=== PATIENT | male | born 1955 | race Caucasian/White ===

== ENCOUNTER → 2021-04-24 15:56 | Outpatient (BNVA) | payer MEDICARE, SELFPAY | PROVIDERS: Visit Provider Specialist | DX: Z01.812 Encounter for preprocedural laboratory examination (principal); Z20.822 Contact with and (suspected) exposure to COVID-19 | CPT/HCPCS: 87635 ==

== ENCOUNTER 2021-04-28 13:25 | Inpatient (IN) | payer MEDICARE, SELFPAY ==
[2021-04-27 14:02] VITALS: BMI 23.9
[2021-04-28] VITALS (40 sets, daily range): BP systolic 158–183; BP diastolic 74–91; PULSE 63–108; RESP 10–24; TEMP 36.2–36.9; O2SAT 91–100
[2021-04-28] MEDS: sodium chloride 0.9% 1,000 ML 30 ML IV (07:46)
--- NOTE | 2021-04-28 07:54 | ANES.PREANE2 ---
Pre-Anesthetic Assessment Pre-Anesthetic Assessment: Height/Weight: Height 1.6 m Weight 61.235 kg Temp Pulse Resp BP Pulse Ox 98.1 F 81 18 181/87 98 04/28/21 07:32 04/28/21 07:32 04/28/21 07:32 04/28/21 07:32 04/28/21 07:32 Preop Diagnosis: Neck mass Proposed Procedure: Operation Date: 04/28/21 08:45 Proposed Procedures p Tracheotomy direct micro [id number] D38.0(Not Applicable) - Carlos A Almazan MD s Direct Laryngoscopy(Not Applicable) - Carlos A Almazan MD s Esophagoscopy w/ biopsy or biopsies(Not Applicable) - Carlos A Almazan MD Familial anesthetic complications: None Was Beta Fawn taken within 24 hours: N/A Was Clonidine taken within 24 hours: N/A Last intake: Intake Last Liquid Date 04/27/21 Last Liquid Time 18:00 Last Solid Date 04/27/21 Last Solid Time 15:00 Social: Social History: Tobacco and No alcohol Exam: Pre-Anes Outpt Exam: alert, oriented x 3, clear to auscultation bilaterally and regular rate & rhythm Airway: Cervical ROM: WNL MP: 3 Dentition: Other (poor dentition, mutiple missing) Anesthetic Plan: ASA status: 3 Anesthesia: General Risk of > 500 ml blood loss (7ml/kg in children): No Meds/Allergies Current Medications: Current Medications Generic Name Dose Route Start Last Admin Trade Name Freq PRN Reason Stop Dose Admin Sodium Chloride 1,000 mls @ 30 ml s/hr 04/28/21 07:30 04/28/21 07:46 Sodium Chloride 0.9% IV 04/29/21 07:29 30 mls/hr .Q24H MANDIE Administration PFSH Anesthesia PFSH: Social History (Updated 04/27/21 @ 13:55 by Dolores Monique) Smoking and tobacco status: current every day smoker cigarettes Packs smoked per day: 0.5 Data Anesthesia Cardiac Studies: No Data to Display
--- NOTE | 2021-04-28 08:33 | W.PM.OPSUD ---
Surgery/Procedure H&P Update DATE OF PROCEDURE: April 28, 2021 DATE H&P PERFORMED: 04/24/21 H&P UPDATE INFORMATION: I have reviewed H&P completed within last 30 days, I have examined patient prior to procedure and No changes to prior documentation PREOP DIAGNOSIS: Laryngeal mass with threatened airway PRIMARY INDICATION FOR PROCEDURE: Laryngeal mass diagnosis Threatened airway PLANNED PROCEDURE: Operation Date: 04/28/21 08:45 Proposed Procedures p Tracheotomy direct micro [id number] D38.0(Not Applicable) - Carlos A Almazan MD s Direct Laryngoscopy(Not Applicable) - Carlos A Almazan MD s Esophagoscopy w/ biopsy or biopsies(Not Applicable) - Carlos A Almazan MD
[2021-04-28] MEDS: lidocaine 2% INJ 20 mL INJECTION (08:55)
[2021-04-28] MEDS: thrombin 5,000 unit SDV 5000 UNIT XX (09:18)
[2021-04-28] MEDS: fluorescein 1 mg Strip XX (09:35)
[2021-04-28] MEDS: EPINEPHrine 1 mg/mL INJ XX (09:35)
--- NOTE | 2021-04-28 10:09 | P.OP_ITS ---
Operative Report Date of procedure: April 28, 2021 Pre-op Diagnosis: Laryngeal mass with threatened airway Post-op diagnosis: same Post-op Findings: Significant obstruction of the airway at the larynx was noted Exophytic mass extending from the laryngeal surface of the mid epiglottis to the left false and true vocal cords The vallecula and tongue base were normal The pyriform sinuses were normal bilaterally There was esophagitis at the G-E junction, but the esophagus was o/w normal to the cardia of the stomach Procedure Done: Tracheotomy Microdirect laryngoscopy with biopsy Flexible esophagoscopy with biopsy of the G-E junction Implants: None Pathology: Laryngeal mass G-E junction biopsy Surgeon: Carlos A Almazan Organisational Psychologist: Anjel Lemus Anesthesia: MAC and General Estimated blood loss (mL): 5 IV fluids (mL): 1,200 Complications: None Findings: Normal anterior/tracheal exam Exophytic mass of the epiglottis laryngeal surface with extension to the left false and true vocal cords Partial airway obstruction Esophagitis at the G-E junction Condition: stable Disposition: PACU Brief History: The patient is a 66-year-old white male with a laryngeal mass and partial airway obstruction who presents today for surgical evaluation and tracheotomy. Procedure: The patient was identified in the preoperative holding area and was t aken to the operating room where he was placed on the operating table in the supine position. A vertical incision was marked out over the cervical trachea just above the sternal notch and this area was infiltrated with local anesthesia. 3 cc of 2% plain lidocaine was then injected into the trachea transcutaneously The patient prepped and draped in the usual sterile fashion. The tracheotomy incision was made with electrocautery on cut mode and the dissection proceeded down through the subcutaneous tissues with a combination of electrocautery and Metzenbaum scissors. The soft tissues were then retracted laterally. The trachea and cricoid cartilage were identified to palpation and the dissection proceeded down to the trachea itself. The thyroid isthmus was elevated off of the trachea and was then divided with the harmonic scalpel. The second tracheal ring was then identified and was removed anteriorly thus entering the airway. At this point a #8 tracheotomy tube was placed in the trachea and the trach was then secured in place with interrupted 0 Prolene sutures. Thrombin-soaked Gelfoam was then placed in the wound and a neck strap was placed on the patient as well. At this point the table was turned 90? to the patient's left. A moist Ray-Palomo was placed in the patient's maxillary gingiva and the surgical laryngoscope was advanced down the right oral cavity gutter under direct vision until the larynx came to view. An inspection was then made of the patient's larynx with findings noted above. Biopsies were taken with cup forceps and hemostasis was achieved with direct application of 11/999 topical epinephrine. Once the inspection of the larynx was complete, the flexible esophagoscope was passed into the esophageal inlet and the laryngoscope was removed. An inspection was then carried out of the esophagus to the cardia of the stomach with the flexible esophagoscope. Biopsies were taken at the GE junction and the flexible esophagoscope was then atraumatically removed from the patient. At this point the procedure was terminated and control of the patient was returned to anesthesia where he underwent an uneventful reversal of anesthesia and extubation and was taken to the recovery room in stable condition. There were no operative or anesthetic complications.
--- NOTE | 2021-04-28 10:43 | SUR.PHASEI ---
1040- SUCTION TO TRACHEOSTOMY PERFORMED PER STERILE TECHNIQUE WITH 12 FR SUCTION CATHETER. THICK CLEAR, BLOOD-TINGED SPUTUM IS EXTRACTED. PATIENT TOLERATES WELL WITH 02 SAT REMAINING WITHIN NORMAL LIMITS WITH ROOM AIR.
--- NOTE | 2021-04-28 11:47 | SUR.PHASEI ---
Patient on mist from RT, having trouble clearing secretions, suction was used to remove phleem
[2021-04-28] MEDS: morphine 4 mg/mL SDV 1 mL 2 MG IVP (14:35)
[2021-04-28] MEDS: famotidine 20 mg/2 mL INJ IVP (14:36)
[2021-04-28] MEDS: lactated ringers 1,000 ML 125 ML IV ×2 (14:36→21:52)
--- NOTE | 2021-04-28 15:54 | ANE.PACU2 ---
Inpatient post-anesthesia follow up: Airway intact: No Vital signs: Temperature 98.1 F Pulse Rate 77 Respiratory Rate 24 Blood Pressure 176/84 Pulse Oximetry 97 Oxygen Delivery Me thod [ HAG Current Rate & Del ivonne] Oxygen Delivery Me thod Trach Collar Oxygen Flow Rate [ Current Rate 10 & Delivery] Oxygen Flow Rate 6 Fraction of Inspir ed Oxygen Hydration adequate: Yes Nausea and vomiting: No Pain level: 2 Mental status: Baseline
--- NOTE | 2021-04-28 18:00 | PM.PN ---
Subjective Subjective: Interval history: 66 yo wm with a h/o an obstructing laryngeal mass who is night of surgery s/p tracheotomy and microdirect laryngoscopy and esophagoscopy with biopsy. The patient is doing well by report. He c/o some periincisional pain, but is o/w without c/o. Vitals/I&O/Wt Last Vital Signs Temp 98.1 F 04/28/21 14:30 Pulse 77 04/28/21 14:30 Resp 24 H 04/28/21 14:35 BP 176/84 04/28/21 14:30 Pulse Ox 97 04/28/21 14:30 04/28/21 04/28/21 04/28/21 06:59 14:59 22:59 Intake Total 200 / 200 Output Total 5 / 5 300 / 305 Balance 195 / 195 -300 / -105 Weight last 48 hrs Weight 61.235 kg Physical Exam Const: COMMON NORMALS: no acute distress, patient oriented x3 and alert HENMT: COMMON NORMALS: atraumatic, hearing grossly normal bilaterally, external ears normal and Normal external nose present HEAD & SCALP: normal to inspection and atraumatic FACE & SINUS: normal facial exam NOSE: Normal external nose present EXTERNAL EAR: Yes external ears normal MOUTH: Normal oral and palatal mucosa present Eye: COMMON NORMALS: EOMs intact bilaterally, conjunctivae normal and no scleral icterus CONJUNCTIVA: Yes conjunctivae normal Neck/C-Spine: COMMON NORMALS: no lymphadenopathy and supple GENERAL: Yes tracheostomy present Lymph: LYMPHATIC: no lymphadenopathy noted Chest: COMMONS NORMALS: normal inspection of the chest and normal palpation of entire chest wall Resp: COMMON NORMALS: normal respiratory effort, No use of accessory muscles and clear to auscultation bilaterally AUSCULTATION: clear to auscultation bilaterally Cardio: COMMON NORMALS: regular rate, regular rhythm and No murmurs present (Cardio) RATE: regular rate RHYTHM: regular rhythm GI: COMMON NORMALS: Normal to inspection, nondistended, normoactive bowel sounds present and Soft to palpation PALPATION: Yes Soft to palpation Extremity: COMMON NORMALS: normal to inspection Neuro: COMMON NORMALS: patient oriented x3, moves all extremities and no focal motor deficits SENSORIUM/ORIENTATION: Yes alert Psych: COMMON NORMALS: mental status grossly normal and cooperative Skin: COMMON NORMALS: no rashes or lesions noted GENERAL SKIN EXAM: no rashes or lesions noted Data Attestation for Other Data: I personally reviewed and interpreted the following: (Frozen Section Biopsy of the Laryngeal Mass c/w SCCA) A&P Additional A&P Information Impression: - 66 yo wm who is night of surgery s/p Tracheotomy and DL/Esophagoscopy with biopsy who is doing well from this standpoint - Hypertension - Social Plan: - ICU observation with trach care; I will perform the first trach change on POD #5-7 - Will defer to the patient's PCP after d/c - Social Work consult: the patient will need a daily home health visit for 2 weeks, Home Suction, Home airway humidification via trach collar Attestations Medical Necessity Statement*: The patient requires inpatient care until the first trach change Coding Level of Care Code Acute Rubber Goods Assembler for Kolby Baker
[2021-04-29] VITALS (54 sets, daily range): BP systolic 140–188; BP diastolic 62–122; PULSE 64–112; RESP 10–22; TEMP 36.8–39.2; O2SAT 88–98
[2021-04-29] MEDS: famotidine 20 mg/2 mL INJ IVP ×2 (02:18→14:03)
--- NOTE | 2021-04-29 02:29 | NUR.SHIFT ---
Changed trach sponge, ambulated patient around the unit. Patient very pleasant and cooperative with cares. Continue care.
--- NOTE | 2021-04-29 05:14 | P.PN_ITS ---
Subjective Subjective: Interval history: 66 yo wm who is POD #1 s/p tracheotomy and Direct Laryngoscopy/Esophagoscopy with biopsy. The patient reports minimal pain, and has been able to eat 'some.' The patient is o/w without c/o. Vitals/I&O/Wt Last Vital Signs Temp 98.0 F 04/28/21 23:18 Pulse 71 04/28/21 22:00 Resp 24 H 04/28/21 14:35 BP 176/84 04/28/21 14:30 Pulse Ox 97 04/28/21 14:30 04/28/21 04/28/21 04/29/21 14:59 22:59 06:59 Intake Total 200 / 200 908.333 / 1108.333 Output Total 5 / 5 850 / 855 Balance 195 / 195 58.333 / 253.333 Weight last 48 hrs Weight 61.235 kg Physical Exam Const: COMMON NORMALS: no acute distress, average body habitus and patient oriented x3 HENMT: COMMON NORMALS: normocephalic, atraumatic, external ears normal and Normal external nose present HEAD & SCALP: normocephalic and atraumatic FACE & SINUS: normal facial exam NOSE: Normal external nose present EXTERNAL EAR: Yes external ears normal MOUTH: Normal oral and palatal mucosa present Eye: COMMON NORMALS: Equal, round and reactive pupils present and conjunctivae normal EYELID: eyelids normal CONJUNCTIVA: Yes conjunctivae normal PUPIL: Yes Equal, round and reactive pupils present Neck/C-Spine: COMMON NORMALS: no lymphadenopathy GENERAL: Yes tracheostomy present (The trach is clean and dry without erythema or induration.) and Yes other Resp: COMMON NORMALS: normal respiratory effort, No retractions, No use of accessory muscles and clear to auscultation bilaterally AUSCULTATION: clear to auscultation bilaterally Cardio: COMMON NORMALS: regular rate, regular rhythm and No murmurs present (Cardio) RATE: regular rate RHYTHM: regular rhythm GI: COMMON NORMALS: Normal to inspection, nondistended, normoactive bowel sounds present and Soft to palpation AUSCULTATION: Yes normoactive bowel sounds PALPATION: Yes Soft to palpation Extremity: COMMON NORMALS: normal to inspection Neuro: COMMON NORMALS: patient oriented x3 A&P Additional A&P Information Impression: - 66 yo wm who is POD #1 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 Coding Level of Care Code Acute Research Worker Kitchen for Kolby Baker
[2021-04-29] MEDS: lactated ringers 1,000 ML 125 ML IV ×2 (05:16→13:08)
[2021-04-29] MEDS: morphine 4 mg/mL SDV 1 mL 2 MG IVP ×2 (07:10→10:37)
--- NOTE | 2021-04-29 10:04 | PC.CHAP ---
Pastoral Care Encounter/Spiritual Assessment Type of Contact [] Declined lime kiln worker visit [] Patient/Family/Request visit [] Outpatient visit [] Follow-up visit [] Physician referral [] Code/Alert [x] Routine visit [] Staff referral [] Actively dying [] Patient sleeping [] Family support [] [] Out of room [] Palliative care [] [] Receiving care in room [] Pre-surgical visit [] Trauma [] Long length of stay [x] ICU visit [] Other: Relational/Emotional Strength [] Patient feels connected with others/family/visitors/staff [] Distress [] Loneliness/isolation [] Abandonment Spirituality of Patient [] Person of Amrisa [] Attends Orthodox of their Marisa [] Believes in Prayer [] Reads Bible or Episcopalian materials [] There are Spiritual issues to be addressed Clinical Staff Anesthesiologist Interventions [x] Prayer [] Active listening [] Non-anxious presence [] Spiritual/emotional support [] Crisis/trauma care [] Spiritual counseling [] Bereavement support [] Provided bereavement packet [] Provided Bible/devotional materials [] Provided toy/stuffed animal, coloring book to patient or family member [] Provided Communion [] Anointing/[place] [] Salvation [x] Completed spiritual assessment [] Other: Impact on Illness or Injury [] Angry [] Fearful [] Anxious [] Often cries [] Exhaustion [] Unable to work [] Unable to attend taoism [] Unable to walk/stand [] Unable to read [] Unable to drive [] Unable to eat/drink [] Unable to sleep [] Unable to be with family [] Patient intubated [] Other: Summary Time spent with patient
--- NOTE | 2021-04-29 17:31 | XRR_ITS ---
PROCEDURE INFORMATION: Exam: XR Chest Exam date and time: 04/29/2021 5:31 PM Age: 66 years old Clinical indication: Fever; Additional info: Decreased stats TECHNIQUE: Imaging protocol: XR of the chest. Views: 1 view. Total images: 1 COMPARISON: ES surgery / GI images 04/28/2021 6:22 AM FINDINGS: Tubes, catheters and devices: Tracheostomy tube appears in satisfactory position. Lungs: No visible active interstitial or alveolar airspace disease. Mild senile fibrosis. COPD/chronic bronchitis. Pleural spaces: No pleural effusion. No pneumothorax. Heart/Mediastinum: Mild cardiomegaly with arteriosclerosis. Bones/joints: Unremarkable for age. XR/XR chest 1V portable [id number] IMPRESSION: Nonacute.
--- NOTE | 2021-04-29 22:06 | XRR_ITS ---
PROCEDURE INFORMATION: Exam: XR Chest Exam date and time: 04/29/2021 10:06 PM Age: 66 years old Clinical indication: Fever TECHNIQUE: Imaging protocol: XR of the chest. Views: 1 view. Total images: 1 COMPARISON: 1. CR XR chest 1V portable [id number] 04/29/2021 6:00 PM 2. ES surgery / GI images 04/28/2021 6:22 AM FINDINGS: Tubes, catheters and devices: Tracheostomy tube appears in stable position. Lungs: No visible active interstitial or alveolar airspace disease. Mild senile fibrosis. COPD/chronic bronchitis. Pleural spaces: No pleural effusion. No pneumothorax. Heart/Mediastinum: Mild cardiomegaly with arteriosclerosis. Bones/joints: Unremarkable for age. XR/XR chest 1V portable [id number] IMPRESSION: Nonacute.
[2021-04-29] MEDS: acetaminophen 325 mg Tablet PO (22:18)
[2021-04-29 22:42] LABS: Basophils % 0.2 %; Hematocrit 33.8 % (42.0-52.0); Hemoglobin 11.1 g/dL (11.7-16.6); Lymphocytes # 1.5 10^3/uL (0.8-4.8); Lymphocytes % 9.2 %; Mean Corpuscular HGB Conc 32.8 g/dL (30.0-36.0); Mean Corpuscular Hemoglobin 27.3 pg (28.0-34.0); Mean Platelet Volume 10.3 fL (7.4-10.4); Monocytes # 1.3 10^3/uL (0.2-0.9); Monocytes % 8.2 %; Neutrophils # 13.19 10^3/uL (1.8-7.7); Nucleated Red Blood Cells % 0 %; Platelet Count 366 10^3/cmm (130-400); Red Blood Count 4.07 10^6/uL (4.1-5.3); Red Cell Distribution Width 13.4 % (12.1-15.1); White Blood Count 16.1 10^3/uL (4.0-10.0)
[2021-04-29 22:52] LABS: Lactate (Lactic Acid level) 0.8 mmol/L (0.5-2.2)
--- NOTE | 2021-04-29 23:15 | PC.NURSE ---
102.5 axillary fever noted during physical assessment and vs check. MD transaction processor notified. New orders placed for tylenol, cxr, urinalysis, and blood cultures. This RN notified Almazan of patient condition. No other new orders given at this time.
[2021-04-29 23:41] LABS: Glomerular Filtration Rate 166.4 mL/min (90-130)
[2021-04-30] VITALS (33 sets, daily range): BP systolic 111–174; BP diastolic 47–83; PULSE 70–128; RESP 13–22; TEMP 36.8–37.9; O2SAT 87–97
[2021-04-30 00:02] LABS: Add Urine Microscopic? YES; Bacteria Urine TRACE /hpf; Bilirubin Urine Neg (Negative); Blood Urine Trace (Negative); Glucose Urine UA Norm (Normal); Ketones Urine 1+ (Negative); Leukocyte Esterase Urine Negative (Negative); Nitrate Urine Negative (Negative); Protein Urine Neg (Negative); RBC Urine 0-4 /hpf (0-2); Squamous Epithelial Cell Urine 0-4 /hpf (0-5); Urine Appearance Clear (CLEAR); Urine Color Yellow (Yellow); Urobilinogen Urine Norm (Negative); WBC Urine 0-4 /hpf (0-5); pH Urine 8 (5-7)
[2021-04-30] MEDS: piperacillin-tazobactam 3.375 GM in sodium chloride 0.9% (plus) 50 ML IV ×3 (01:22→17:00)
[2021-04-30] MEDS: famotidine 20 mg/2 mL INJ IVP ×2 (03:25→14:19)
--- NOTE | 2021-04-30 04:02 | PM.CONSULT ---
Providers/Reason For Consult Consulting Physician/Specialty*: Hospitalist service/Dr. Cornejo Reason for Consult*: Sepsis Attending Physician: Carlos A Almazan MD History of Present Illness History of Present Illness Cristobal Delatorre is a 66 year old male with history of laryngeal mass( squamous cell cancer supraglottic larynx )status post tracheotomy with MicroDirect laryngoscopy esophagoscopy with biopsy postop day 1, hospitalist service consulted for management of fever. ICU nurse notified me about axillary temperature 102F last night. I requested stat CBC, lactic acid, procalcitonin, chest x-ray, blood cultures and urine culture. Patient is going to stay in ICU for 5 to 7 days there is plan of changing trach on post operative day 5. He has a lot of thick purulent secretions around tracheostomy tube. He is not complaining of any abdominal pain, dysuria. Review of Systems Const: Reports: fever(s) and chills Eyes: Denies: change in vision ENMT: Reports: throat pain, oral sores and dry mouth Card: Denies: chest pain Resp: Denies: dyspnea GI: Denies: abdominal pain : Denies: flank pain Musc: Denies: neck pain Skin/Breast: Denies: rash Neuro: Denies: headache(s) Psych: Denies: anxiety Endo: Denies: polyuria Jesus/Lymph: Denies: easy bruising All/Imm: Denies: urticaria Meds/Allergies Home Medications and Allergies Home Medications Medication Instructions Recorded Confirmed Last Taken Type acetaminophen 500 mg PO Q6H PRN 04/27/21 04/28/21 04/28/21 History fluticasone propionate [Flonase 1 spray INTRANASAL DAILY 04/27/21 04/28/21 04/27/21 History Allergy Relief] tramadol 50 mg PO Q6H PRN 04/27/21 04/27/21 Unknown History Allergies Allergy/AdvReac Type Severity Reaction Status Date / Time No Known Allergies Allergy Verified 04/27/21 14:00 Current Medications Current Medications Generic Name Dose Route Start Last Admin Trade Name Freq PRN Reason Stop Dose Admin Acetaminophen 325 - 650 mg 04/29/21 22:04 04/29/21 22:18 Acetaminophen 325 Mg Tablet PO 650 mg Q4H PRN Administration MILD PAIN OR INCREASE TEMP Docusate Sodium 100 mg 04/28/21 18:00 04/29/21 18:09 Docusate Sodium 100 Mg Capsule PO Not Given BID MANDIE Famotidine 20 mg 04/28/21 15:00 04/30/21 03:25 Famotidine 20 Mg/2 Ml Inj IVP 20 mg Q12H MANDIE Administration Lactated Ringer's 1,000 mls @ 30 mls/hr 04/28/21 13:50 04/29/21 19:00 Lactated Ringers IV 30 mls/hr .Q24H MANDIE Infusion Piperacillin Sod/Tazobactam 50 mls @ 12.5 mls/hr 04/30/21 01:15 04/30/21 01:22 Sod 3.375 gm/ Sodium Chloride IV 12.5 mls/hr Q8H MANDIE Administration Protocol As Directed Morphine Sulfate 2 mg 04/28/21 13:57 04/29/21 10:37 Morphine 4 Mg/Ml Sdv 1 Ml IVP 2 mg Q1H PRN Administration SEVERE PAIN PFSH Acute PFSH: Medical History Laryngitis Stomach ulcer Surgical History H/O removal of cyst Family History Other Family history non-contributory Social History Smoking and tobacco status: current every day smoker cigarettes Packs smoked per day: 0.5 Vitals/I&O/Wt Last Vital Signs Temp 100.3 F H 04/30/21 00:00 Pulse 75 04/30/21 01:00 Resp 21 H 04/30/21 01:00 BP 161/98 04/29/21 23:00 Pulse Ox 92 04/30/21 01:00 04/29/21 04/29/21 04/30/21 14:59 22:59 06:59 Intake Total 1363.333 / 1363.333 783.333 / 2146.666 Output Total 1250 / 1250 1300 / 2550 Balance 113.333 / 113.333 -516.667 / -403.334 Physical Exam Narrative: EXAM NARRATIVE: Middle-age male who appears cachectic and malnourished Status post tracheostomy, tracheostomy tube size 8 with cough with a lot of purulent thick secretions around it No abdominal pain, no signs of peritonitis, soft abdomen S1, S2 sinus rhythm no murmur appreciated no signs of heart failure Lower extremity no edema gangrene ulcer EOMI, PERRLA GCS 15 no neurological deficit No skin rash noted At the bedside normal saline running at 30 cc/h Patient able to communicate using his hand gestures and nonverbal signs Data Micro: Micro: Microbiology 04/29/21 22:22 Blood Culture - Pr eliminary Blood SPECIMEN [facility] 04/29/21 22:15 Blood Culture - Pr eliminary Blood SPECIMEN [facility] A&P Assessment and plan (1) Sepsis: Status: Acute (2) S/P emergency tracheotomy for assistance in breathing: Status: Acute Additional A&P Information Sepsis Status post tracheostomy for supraglottic squamous cell laryngeal mass Criteria met with fever, tachypnea, tachycardia, leukocytosis, Procalcitonin unremarkable Normal lactic acid Requested blood culture, tracheal secretion culture sent, MRSA PCR, urinalysis and chest x-ray We will continue on vancomycin and Zosyn for now He is on normal saline 30 cc/h Postop day 1, tracheostomy tube size 8, currently saturating well on 10 L oxygen supplementation Rule out tracheitis Hypertension: I would initiate lisinopril 10 mg daily, I do believe normal saline running at 30 cc/h also is contributing to hypertension, considering active sepsis would continue fluids for now which would help diluting his tracheal secretions as well, Lisinopril and amlodipine initiated Full code Clear liquid diet DVT prophylaxis: Start Lovenox Consult Attestations Medical Necessity Statement: As per ENT Time Spent in Patient Care: 30mins Coding Level of Care Code Acute Multimedia Services Manager for Chg Fwd Diagnoses Sepsis A41.9 S/P emergency tracheotomy for assistance in breathing Z93.0
--- NOTE | 2021-04-30 04:04 | PM.PN ---
Subjective Subjective: Interval history: 66 yo wm who is POD #2 s/p tracheotomy with DL and esophagoscopy with biopsy for an obstructing laryngeal mass. The patient developed a fever to 103 last night, but is o/w without c/o. He was taking po well yesterday. Vitals/I&O/Wt Last Vital Signs Temp 100.3 F H 04/30/21 00:00 Pulse 75 04/30/21 01:00 Resp 21 H 04/30/21 01:00 BP 161/98 04/29/21 23:00 Pulse Ox 92 04/30/21 01:00 04/29/21 04/29/21 04/30/21 14:59 22:59 06:59 Intake Total 1363.333 / 1363.333 783.333 / 2146.666 Output Total 1250 / 1250 1300 / 2550 Balance 113.333 / 113.333 -516.667 / -403.334 Physical Exam Const: COMMON NORMALS: no acute distress and patient oriented x3 HENMT: COMMON NORMALS: normocephalic, atraumatic, hearing grossly normal bilaterally and Normal external nose present HEAD & SCALP: normocephalic and atraumatic NOSE: Normal external nose present TEETH & GINGIVA: Yes abnormal tooth and associated gingiva Eye: GENERAL EYE: appearance normal, both eyes and all related structures Neck/C-Spine: COMMON NORMALS: no lymphadenopathy and supple GENERAL: Yes tracheostomy present (No erythema or induration.) Lymph: LYMPHATIC: no lymphadenopathy noted Chest: COMMONS NORMALS: normal inspection of the chest and normal palpation of entire chest wall Resp: COMMON NORMALS: normal respiratory effort and clear to auscultation bilaterally AUSCULTATION: clear to auscultation bilaterally Cardio: COMMON NORMALS: regular rate, regular rhythm and No murmurs present (Cardio) RATE: regular rate RHYTHM: regular rhythm GI: COMMON NORMALS: Normal to inspection, nondistended, normoactive bowel sounds present, Soft to palpation and non-tender PALPATION: Yes Soft to palpation Extremity: COMMON NORMALS: normal to inspection and full ROM Neuro: COMMON NORMALS: patient oriented x3 and CN's II-XII intact bilaterally Skin: COMMON NORMALS: no rashes or lesions noted GENERAL SKIN EXAM: no rashes or lesions noted Sepsis: Is patient septic: No Data : 04/29/21 22:22 06/23/21 22:22 Micro: Microbiology 04/29/21 22:22 Blood Culture - Preliminary Blood SPECIMEN COLLECTED 04/29/21 22:15 Blood Culture - Preliminary Blood SPECIMEN COLLECTED A&P Additional A&P Information Impression: 1) 66 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 Attestations Medical Necessity Statement*: The patient requires inpatient care until first trach change on POD 5-7 Coding Level of Care Code Acute Cyber Forensic Specialist for Kolby Baker
--- NOTE | 2021-04-30 04:14 | PC.PHAR ---
Vancomycin is dosed at 1250mg IVPB every 12 hours to produce a predicted trough level of 12.83 (population based pharmacokinetic analysis). A trough level has been ordered from the lab to be obtained before the fourth dose to confirm and adjust if needed. The Zosyn is dosed at 3.375gm IVPB every 8 hours on basis of creatinine clearance of 75.328.
[2021-04-30] MEDS: vancomycin 1,250 MG/250 ML PIGGYBACK 250 MG IV ×2 (04:46→15:42)
[2021-04-30] MEDS: lisinopril 10 mg Tablet PO ×2 (04:46→10:28)
[2021-04-30 05:07] LABS: Basophils # 0.1 10^3/uL (0.0-0.1); Basophils % 0.3 %; Hematocrit 35.3 % (42.0-52.0); Hemoglobin 11.4 g/dL (11.7-16.6); Lymphocytes # 1.6 10^3/uL (0.8-4.8); Mean Corpuscular HGB Conc 32.3 g/dL (30.0-36.0); Mean Corpuscular Hemoglobin 27.1 pg (28.0-34.0); Mean Corpuscular Volume 83.8 fL (80-94); Mean Platelet Volume 10.7 fL (7.4-10.4); Monocytes # 1.3 10^3/uL (0.2-0.9); Monocytes % 8.7 %; Neutrophils # 11.71 10^3/uL (1.8-7.7); Neutrophils % 79.7 %; Nucleated Red Blood Cells % 0 %; Platelet Count 362 10^3/cmm (130-400); Red Blood Count 4.21 10^6/uL (4.1-5.3); Red Cell Distribution Width 13.7 % (12.1-15.1); White Blood Count 14.7 10^3/uL (4.0-10.0)
[2021-04-30 05:40] LABS: Anion Gap 13.5 (5-19); Blood Urea Nitrogen 9 mg/dL (8-23); Calcium 8.5 mg/dL (8.5-10.5); Carbon Dioxide 26 mmol/L (22-29); Chloride 98 mmol/L (98-107); Glomerular Filtration Rate 134.8 mL/min (90-130); Glucose 89 mg/dL (65-115); Osmolality Calculated 276 mOsm/kg (285-295); Potassium 3.5 mmol/L (3.5-5.1); Sodium 134 mmol/L (136-145); Thyroid Stimulating Hormone 0.56 uIU/mL (0.27-4.20)
[2021-04-30] MEDS: amlodipine 10 mg Tablet PO ×2 (05:55→10:28)
[2021-04-30] MEDS: enoxaparin 40 mg/0.4 mL Syringe SUBCUT (05:55)
--- NOTE | 2021-04-30 08:21 | PC.CHAP ---
Pastoral Care Encounter/Spiritual Assessment Type of Contact [] Declined personal clothing laundry aide visit [] Patient/Family/Request visit [] Outpatient visit [] Follow-up visit [] Physician referral [] Code/Alert [x] Routine visit [] Staff referral [] Actively dying [] Patient sleeping [] Family support [] [] Out of room [] Palliative care [] [] Receiving care in room [] Pre-surgical visit [] Trauma [] Long length of stay [x] ICU visit [] Other: Relational/Emotional Strength [] Patient feels connected with others/family/visitors/staff [] Distress [] Loneliness/isolation [] Abandonment Spirituality of Patient [] Person of Marisa [] Attends Uatsdin of their Marisa [] Believes in Prayer [] Reads Bible or Scientology materials [] There are Spiritual issues to be addressed Ground Wirer Interventions [x] Prayer [] Active listening [] Non-anxious presence [] Spiritual/emotional support [] Crisis/trauma care [] Spiritual counseling [] Bereavement support [] Provided bereavement packet [] Provided Bible/devotional materials [] Provided toy/stuffed animal, coloring book to patient or family member [] Provided Communion [] Anointing/[place] [] Salvation [x] Completed spiritual assessment [] Other: Impact on Illness or Injury [] Angry [] Fearful [] Anxious [] Often cries [] Exhaustion [] Unable to work [] Unable to attend spiritism [] Unable to walk/stand [] Unable to read [] Unable to drive [] Unable to eat/drink [] Unable to sleep [] Unable to be with family [] Patient intubated [] Other: Summary Time spent with patient
[2021-04-30] MEDS: acetylcysteine 200 mg/mL SDV 4 mL 100 MG INHALATION ×3 (09:00→20:07)
--- NOTE | 2021-04-30 09:13 | P.PN_ITS ---
Subjective Subjective: Interval history: Reports he is having pain around the tracheostomy site. He is coughing. Copious secretions from tracheostomy. Discussed with him regarding noted abnormalities with vital signs, including fever, tachycardia, noted hypoxia. Discussed with him concern regarding sepsis, so far with unknown source. Chest x-ray without acute abnormality. UA not suggestive of UTI. He does not have any GI symptoms. No other systems that would suggest active infection/sepsis at this time. No noted erythema around the tracheostomy, and this appears to be in expected condition as per ENT evaluation this morning. Discussed with him with tachycardia, hypoxia, cough, underlying malignancy possibility of VTE, which may present with the symptoms, and he does have elevated risk. Discussed with him additional assessment including rapid flu, rapid Covid testing. Discussed additional assessment by CT angiogram (contrast study) and risks for additional evaluation. Discussed continued treatment at this time with antibiotics empirically for sepsis of unclear etiology at this time. Discussed also currently he is on prophylactic anticoagulation, however, in the somewhat less likely situation that he has VTE, full dose anticoagulation would be needed. He asks me when he can go home. Discussed with him that plan had been for him to have trach exchange on POD 5-7. States he just came here to have a tumor removed , not all this . Discussed with him risks of untreated sepsis, possible underlying infection not yet identified, as well as risks of possible undiagnosed and/nontreated VTE including possible PE, including risks of disability and/or . He asks me to ask ENT to speak with him as he would like to discuss removal of the trach. Vitals/I&O/Wt Last Vital Signs Temp 99.7 F H 04/30/21 04:00 Pulse 128 H 04/30/21 06:30 Resp 15 04/30/21 06:30 BP 173/75 04/30/21 06:30 Pulse Ox 93 04/30/21 06:30 04/29/21 04/30/21 04/30/21 22:59 06:59 14:59 Intake Total 783.333 / 2146.666 375 / 2521.666 Output Total 1300 / 2550 250 / 2800 Balance -516.667 / -403.334 125 / -278.334 Physical Exam Const: COMMON NORMALS: no acute distress and patient oriented x3 HENMT: COMMON NORMALS: oropharynx normal Neck/C-Spine: COMMON NORMALS: no JVD OTHER: Tracheostomy in place. Copious secretions. Resp: COMMON NORMALS: normal respiratory effort AUSCULTATION: rhonchi O THER: Coughing, with thick yellowish secretions. Cardio: COMMON NORMALS: no JVD and regular rhythm RHYTHM: regular rhythm GI: COMMON NORMALS: Normal to inspection, nondistended, normoactive bowel sounds present Extremity: COMMON NORMALS: no joint enlargement and no pedal edema Neuro: COMMON NORMALS: patient oriented x3 and moves all extremities Skin: COMMON NORMALS: no rashes or lesions noted GENERAL SKIN EXAM: no rashes or lesions noted Data : 04/30/21 04:12 04/30/21 04:12 Micro: Microbiology 04/30/21 04:45 Gram Stain - Final Sputum - Expectorated Sputum 04/29/21 22:22 Blood Culture - Preliminary Blood SPECIMEN COLLECTED 04/29/21 22:15 Blood Culture - Preliminary Blood SPECIMEN COLLECTED A&P Assessment and plan (1) Sepsis: So far not clear etiology, does have thick secretions from tracheostomy, but this is expected after aspiration tracheostomy, additionally no pneumonia noted on chest x-ray. Noted that his hypoxia has worsened, requiring 10 L Haeg oxygen as opposed to 6 on 04/28. Saturations also with mild downtrend. Will check rapid flu, rapid COVID-19. Otherwise no erythema around the trach, and nothing else appears unexpected as per ENT evaluation. Otherwise he has no GI symptoms. UA not suggestive of UTI. No suggestion of infection elsewhere. Discussed with him due to increased risk of VTE with underlying malignancy, immobilization, possibility of VTE causing similar symptoms with tachycardia, fever, hypoxia, cough. Discussed additional assessment by CT angiogram (ventilation but would not be possible for V/Q as per discussion with NM). Will obtain lower extremity duplex as well. Discussed with him in case of underlying VTE would need anticoagulation. He is reluctant, but agreeable to assessment. Follow-up cultures collected including blood culture, tracheal secretions. MRSA PCR. Continue Lovenox for VTE prophylaxis. Famotidine for GI prophylaxis. For now given sepsis of unclear etiology worsening of hypoxia, continue to treat and monitor in ICU. Status: Acute (2) S/P emergency tracheotomy for assistance in breathing: ENT documentation appreciated regarding plan for trach change on POD 5-7. Status: Acute Additional A&P Information Hypertension: Started on amlodipine 10mg, lisinoptil 10mg Full code Clear liquid diet DVT prophylaxis: Start Lovenox Attestations Medical Necessity Statement*: Continue admission for assessment management of sepsis, postoperative care after tracheostomy placement due to airway obstruction from laryngeal malignancy. Coding Level of Care Code Acute Inspector Scales for Chg Fwd Exam Comprehensive Diagnoses Sepsis A41.9 S/P emergency tracheotomy for assistance in breathing Z93.0
--- NOTE | 2021-04-30 09:13 | CT_ITS ---
WS: [id number] CT CHEST ANGIOGRAPHY WITH REFORMATS HISTORY: tachycardia, hypoxia - assess for possible PE TECHNIQUE: Contiguous axial images are obtained through the chest during arterial injection of intrav enous contrast. Images are reconstructed to evaluate the pulmonary arteries. MIP imaging also reviewe d. All CT scans at [facility] use at least one of these dose optimization techniques: aut omated exposure control; mA and/or kV adjustment per patient size (includes targeted exams where dose is matched to clinical indication); or iterative reconstruction. CONTRAST: Omnipaque 350; 95 mL IV. DLP: 563.71 mGy.cm COMPARISON: None available. Very good opacification of the pulmonary arteries. No central pulmonary embolism. There are no fillin g defects. Mild atherosclerotic plaque and intimal thickening within the aorta. No RIGHT heart strain . There is mild enlargement of the heart and small amount of pericardial fluid or thickening. No medi astinal or hilar adenopathy. Tracheostomy tube in good position has been recently inserted. Moderate pulmonary hyperinflation with central lobular and paraseptal emphysema. No mass or nodule. Mild reticulation medial RIGHT lower lo be and at the lung bases. Bilateral gynecomastia. Visualized liver is negative. No adrenal mass. Mild soft tissue stranding and edema within the mesent emma and in the subcutaneous soft tissues over the abdomen and chest. Increase in thoracic kyphosis. Multiple osteoporotic compression fractures are present in the mid tho racic spine. CT/CT angio chest PE protcl [id number] IMPRESSION: 1. No pulmonary embolism. 2. No mediastinal or hilar adenopathy. 3. Severe emphysema with no pneumonia. 4. Recent insertion of a tracheostomy tube in satisfactory position.
--- NOTE | 2021-04-30 10:05 | USCV_ITS ---
Juan Ramon Cristobal Age: 66 Gender: M : 1955 Exam Date: 04/30/2021 10:21 Ordering Phys: Joe Gibson MD Technologist: [place] [facility] [place] BED STASIS HISTORY: Lower extremity edema. PROCEDURES: The venous duplex Doppler examination of both lower extremities was performed in the standard fashion. The following venous structures were evaluated: common femoral vein, profunda vein, proximal portion of the greater saphenous vein, superficial femoral vein, and the popliteal vein. In addition, the posterior tibial veins were evaluated. FINDINGS: Normal 2-D Doppler and augmentation and compressibility throughout the lower extremity venous structures. Additional imaging through the proximal calf veins also reveals no thrombus. Limited evaluation of the greater saphenous vein is patent with no thrombus. CONCLUSIONS No DVT bilateral lower extremities. Dr. Shruti Elizabeth DO (Electronically Signed) Final Date: 30 April 2021 12:54 S
[2021-04-30 10:12] LABS: SARS Covid-2 Antigen Negative (Negative)
[2021-04-30 10:13] LABS: Influenza A by IFA Negative (Negative); Influenza B by IFA Negative (Negative)
[2021-04-30] MEDS: lactated ringers 1,000 ML 30 ML IV (10:28)
--- NOTE | 2021-04-30 10:28 | PC.NURSE ---
MAR delay related to primary nurse busy with other critical patient and this nurse helping.
--- NOTE | 2021-04-30 12:09 | PC.RESP ---
SMOKING CESSATION INFORMATION SENT TO PATIENT.
[2021-04-30] MEDS: iohexol 350 mg/mL 100 mL Btl IV (13:05)
[2021-05-01] VITALS (22 sets, daily range): BP systolic 110–146; BP diastolic 53–74; PULSE 59–94; RESP 13–18; TEMP 36.8–38.2; O2SAT 90–100
[2021-05-01] MEDS: piperacillin-tazobactam 3.375 GM in sodium chloride 0.9% (plus) 50 ML IV ×3 (01:37→16:14)
[2021-05-01] MEDS: acetylcysteine 200 mg/mL SDV 4 mL 100 MG INHALATION ×3 (02:26→14:11)
[2021-05-01] MEDS: famotidine 20 mg/2 mL INJ IVP ×2 (02:48→14:47)
[2021-05-01] MEDS: acetaminophen 325 mg Tablet PO ×2 (04:16→16:14)
[2021-05-01] MEDS: vancomycin 1,250 MG/250 ML PIGGYBACK 250 MG IV (04:16)
[2021-05-01 05:03] LABS: Basophils # 0.1 10^3/uL (0.0-0.1); Basophils % 0.5 %; Eosinophils % 0.1 %; Hematocrit 35.8 % (42.0-52.0); Hemoglobin 11.4 g/dL (11.7-16.6); Lymphocytes # 1.4 10^3/uL (0.8-4.8); Lymphocytes % 9.5 %; Mean Corpuscular HGB Conc 31.8 g/dL (30.0-36.0); Mean Corpuscular Hemoglobin 26.6 pg (28.0-34.0); Mean Corpuscular Volume 83.6 fL (80-94); Mean Platelet Volume 10.6 fL (7.4-10.4); Monocytes # 1.2 10^3/uL (0.2-0.9); Neutrophils # 11.67 10^3/uL (1.8-7.7); Neutrophils % 81.3 %; Nucleated Red Blood Cells % 0 %; Platelet Count 353 10^3/cmm (130-400); Red Blood Count 4.28 10^6/uL (4.1-5.3); Red Cell Distribution Width 13.5 % (12.1-15.1); White Blood Count 14.3 10^3/uL (4.0-10.0)
[2021-05-01 05:17] LABS: Anion Gap 19.4 (5-19); Blood Urea Nitrogen 10 mg/dL (8-23); Carbon Dioxide 23 mmol/L (22-29); Chloride 98 mmol/L (98-107); Glomerular Filtration Rate 166.4 mL/min (90-130); Glucose 95 mg/dL (65-115); Osmolality Calculated 283 mOsm/kg (285-295); Potassium 3.4 mmol/L (3.5-5.1); Sodium 137 mmol/L (136-145)
--- NOTE | 2021-05-01 05:23 | PM.PN ---
Subjective Subjective: Interval history: 66 yo wm with a T3/T4 [place] SCCA of the larynx who is POD #3 s/p urgent tracheotomy for impending airway obstruction who is doing well from this standpoint. The patient reports mild periincisional pain and would like 'regular food.' The patient's post op course has been complicated by a fever of unknown origin which has responded to impiric antibiotic therapy. The patient is o/w without c/o. Vitals/I&O/Wt Last Vital Signs Temp 99.2 F 05/01/21 04:00 Pulse 78 05/01/21 04:00 Resp 16 05/01/21 04:00 BP 141/69 05/01/21 04:00 Pulse Ox 98 05/01/21 04:00 04/30/21 04/30/21 05/01/21 14:59 22:59 06:59 Intake Total 500 / 500 300 / 800 100 / 900 Output Total 175 / 175 700 / 875 300 / 1175 Balance 325 / 325 -400 / -75 -200 / -275 Physical Exam Const: COMMON NORMALS: no acute distress, average body habitus and patient oriented x3 GENERAL APPEARANCE: cooperative HENMT: COMMON NORMALS: normocephalic, atraumatic, external ears normal and Normal external nose present HEAD & SCALP: normocephalic and atraumatic FACE & SINUS: normal facial exam NOSE: Normal external nose present EXTERNAL EAR: Yes external ears normal MOUTH: Normal oral and palatal mucosa present and tongue normal Eye: COMMON NORMALS: EOMs intact bilaterally and conjunctivae normal GENERAL EYE: appearance normal, both eyes and all related structures CONJUNCTIVA: Yes conjunctivae normal Neck/C-Spine: COMMON NORMALS: no lymphadenopathy, supple, no meningeal signs and Thyroid normal GENERAL: Yes trachea midline and Yes tracheostomy present (The trach site is clean and without erythem or significant d/c.) THYROID: Thyroid normal Chest: COMMONS NORMALS: normal inspection of the chest and normal palpation of entire chest wall Resp: COMMON NORMALS: normal respiratory effort, No use of accessory muscles and clear to auscultation bilaterally AUSCULTATION: clear to auscultation bilaterally Cardio: COMMON NORMALS: regular rate, regular rhythm and No murmurs present (Cardio) RATE: regular rate RHYTHM: regular rhythm GI: COMMON NORMALS: Normal to inspection, nondistended, normoactive bowel sounds present and non-tender Extremity: COMMON NORMALS: normal to inspection Neuro: COMMON NORMALS: patient oriented x3 and CN's II-XII intact bilaterally (Except for CN X (Impaired Left True vocal cord function)) MENINGEAL SIGNS: Yes no meningeal signs Psych: COMMON NORMALS: mental status grossly normal and Normal thought process present THOUGHT PROCESS: Normal thought process present Skin: COMMON NORMALS: no rashes or lesions noted and turgor normal GENERAL SKIN EXAM: no rashes or lesions noted and turgor normal Data : 05/01/21 04:16 05/01/21 04:16 Micro: Microbiology 04/29/21 22:22 Blood Culture - Preliminary Blood NEGATIVE TO DATE 04/29/21 22:15 Blood Culture - Preliminary Blood NEGATIVE TO DATE 04/30/21 04:40 MRSA Culture - Final Nose 04/30/21 04:45 Gram Stain - Final Sputum - Expectorated Sputum A&P Additional A&P Information Impression: 1) 66 yo wm with a T3/T4 transglottic SCCA of the larynx who is doing well POD #3 s/p tracheotomy/DL with biopsy 2) Medical - Sepsis: improving - Hypertension: improved on Lisinopril - Low potassium 3) Social: Discharge planning pending Plan: 1) First trach change on POD 5-7 - I explained the general outline of treatment for this condition to the patient; he will need additional testing and evaluation by Surgical Oncology, HemeOncology, and Radiation Oncology prior implementing definitive treatment plan; I explained to the patient that he will need his trach at least until a definitive treatment has been implemented and that he may need a total laryngectomy. He expressed understanding. 2) As per the Hospitalist team. I appreciate their assistance and input. 3) Plan for d/c after first trach change: the patient will need Home Health visits daily for 2 weeks, Home humidified oxygen, and a home suction unit. Attestations Medical Necessity Statement*: The patient will require inpatient care until the above D/C planning is complete and he has undergone his first trach change. Coding Level of Care Code Acute Track Laying Machine Operator for Kolby Baker
--- NOTE | 2021-05-01 05:47 | PC.NURSE ---
Dr. Almazan to bedside, answered all patient questions. Requested an 8.0 uncuffed trach and a trach tie at bedside so he can change out trach on Tuesday. New orders noted.
[2021-05-01] MEDS: lisinopril 10 mg Tablet PO (09:01)
[2021-05-01] MEDS: docusate sodium 100 mg Capsule PO (09:01)
[2021-05-01] MEDS: sennosides-docusate Tablet 1 TAB PO (09:01)
[2021-05-01] MEDS: amlodipine 10 mg Tablet PO (09:01)
--- NOTE | 2021-05-01 09:12 | P.PN_ITS ---
Subjective Subjective: Interval history: Reports he is feeling much better today. His fevers so far have subsided. Tachycardia with improvement. Subjectively he feels better. He is happy to transfer out of ICU. Vitals/I&O/Wt Last Vital Signs Temp 99.2 F 05/01/21 04:00 Pulse 90 05/01/21 07:42 Resp 18 05/01/21 07:42 BP 111/60 05/01/21 06:00 Pulse Ox 94 05/01/21 07:42 04/30/21 05/01/21 05/01/21 22:59 06:59 14:59 Intake Total 300 / 800 400 / 1200 Output Total 700 / 875 300 / 1175 Balance -400 / -75 100 / 25 Physical Exam Const: COMMON NORMALS: no acute distress and patient oriented x3 HENMT: COMMON NORMALS: oropharynx normal Neck/C-Spine: COMMON NORMALS: no JVD OTHER: Tracheostomy in place. Copious secretions. Thinner, less yellow today. Resp: COMMON NORMALS: normal respiratory effort AUSCULTATION: rhonchi Cardio: COMMON NORMALS: no JVD and regular rhythm RHYTHM: regular rhythm GI: COMMON NORMALS: Normal to inspection, nondistended, normoactive bowel so unds present Extremity: COMMON NORMALS: no joint enlargement and no pedal edema Neuro: COMMON NORMALS: patient oriented x3 and moves all extremities Skin: COMMON NORMALS: no rashes or lesions noted GENERAL SKIN EXAM: no rashes or lesions noted Data : 05/01/21 04:16 05/01/21 04:16 Micro: Microbiology 04/29/21 22:22 Blood Culture - Preliminary Blood NEGATIVE TO DATE 04/29/21 22:15 Blood Culture - Preliminary Blood NEGATIVE TO DATE 04/30/21 04:40 MRSA Culture - Final Nose 04/30/21 04:45 Gram Stain - Final Sputum - Expectorated Sputum A&P Assessment and plan (1) Sepsis: Sepsis appears to be improving, with so far resolution of fever. Leukocytosis persists. Tachycardia is better, heart rate down to 90. Subjectively he feels better. So far no growth on cultures, Gram stain sputum culture moderate white blood cells, many gram-positive cocci in pairs and chains, few gram-negative rods. MRSA PCR negative. Follow culture. Will stop vancomycin. Continue Zosyn for now. Consider repeat chest x-ray. Oxygenation better today, down to 6 L on HAG. Rapid flu, rapid COVID-19 negative. No erythema around the trach. No GI symptoms. UA not suggestive of UTI. No suggestion of infection elsewhere. CTA and lower extremity duplex negative for VTE. Follow-up cultures collected including blood culture, tracheal secretions. Continue Lovenox for VTE prophylaxis. Famotidine for GI prophylaxis. Status: Acute (2) S/P emergency tracheotomy for assistance in breathing: ENT documentation appreciated. Continue postoperative care. Trach e xchange on POD 5-7. Arrangements for home supplies. Status: Acute Additional A&P Information Hypertension: Started on amlodipine 10mg, lisinoptil 10mg Full code Clear liquid diet DVT prophylaxis: Start Lovenox Attestations Medical Necessity Statement*: Continue admission for assessment management of improving sepsis, postoperative care after tracheostomy. Coding Level of Care Code Acute Professor Of Political Science for Kolby Fwd Diagnoses Sepsis A41.9 S/P emergency tracheotomy for assistance in breathing Z93.0
--- NOTE | 2021-05-01 14:13 | PC.NURSE ---
report called to 2nd floor .. transfer [id number]
--- NOTE | 2021-05-01 14:30 | PC.NURSE ---
A transfer FROM ICU Received pt via wheelchair. Sister at bedside. Pt has intact trach on anterior medial neck. sutured. Humidifier and suction ready at bedside table. Trach care provided to pt. Aspiration prec-HOB 90degrees. Intact gag reflex and swallowing. Report of tenderness to trach site. Rated pain level at 5/10 per pain scale. Tramadol administered as ordered. call light w/in reach. urinal provided.
[2021-05-01] MEDS: fluticasone nasal spray 16gm Btl 1 SPRAY INTRANASAL (14:44)
[2021-05-01] MEDS: TRAMadol 50 mg Tablet PO (14:47)
[2021-05-01 16:25] LABS: Vancomycin Trough 9.7 ug/mL (10-15)
[2021-05-01] MEDS: lactated ringers 1,000 ML 30 ML IV (16:37)
[2021-05-02] VITALS (18 sets, daily range): BP systolic 102–143; BP diastolic 50–66; PULSE 61–79; RESP 12–18; TEMP 36.4–37.2; O2SAT 92–99
[2021-05-02] MEDS: piperacillin-tazobactam 3.375 GM in sodium chloride 0.9% (plus) 50 ML IV ×2 (00:42→09:31)
[2021-05-02] MEDS: famotidine 20 mg/2 mL INJ IVP ×2 (04:09→14:04)
[2021-05-02] MEDS: enoxaparin 40 mg/0.4 mL Syringe SUBCUT (04:33)
--- NOTE | 2021-05-02 05:41 | PC.NURSE ---
SHIFT SUMMARY Has rested well tonight. Trach in place. RT did trach care and nurse changed drain sponge again this am due to soilage from cough up secretions. Sx at bedside. Has O2 per HAG to trach. c/o tenderness in ant neck at trach site but has requested no pain meds. Required new IV start for infiltration this shift. IV fluids infusing well and is receiving IV antibiotics. Has been afebrile tonight. Unable to speak but communicates well with mouthing, nods & gestures.
[2021-05-02 06:25] LABS: Basophils % 0.3 %; Eosinophils % 0.3 %; Hematocrit 30.9 % (42.0-52.0); Hemoglobin 10.1 g/dL (11.7-16.6); Lymphocytes # 1.3 10^3/uL (0.8-4.8); Mean Corpuscular HGB Conc 32.7 g/dL (30.0-36.0); Mean Corpuscular Hemoglobin 27.3 pg (28.0-34.0); Mean Corpuscular Volume 83.5 fL (80-94); Mean Platelet Volume 11.2 fL (7.4-10.4); Monocytes # 0.8 10^3/uL (0.2-0.9); Monocytes % 6.7 %; Neutrophils # 9.73 10^3/uL (1.8-7.7); Neutrophils % 81.4 %; Nucleated Red Blood Cells % 0 %; Platelet Count 324 10^3/cmm (130-400); Red Cell Distribution Width 13.5 % (12.1-15.1); White Blood Count 11.9 10^3/uL (4.0-10.0)
[2021-05-02 06:57] LABS: Alanine Aminotransferase 20 U/L (0-41); Albumin Level 2.9 g/dL (3.5-5.2); Alkaline Phosphatase 167 IU/L (40-130); Anion Gap 13.8 (5-19); Aspartate Amino Transferase 27 U/L (0-40); Blood Urea Nitrogen 14 mg/dL (8-23); Calcium 8.3 mg/dL (8.5-10.5); Carbon Dioxide 24 mmol/L (22-29); Chloride 104 mmol/L (98-107); Glomerular Filtration Rate 166.4 mL/min (90-130); Glucose 123 mg/dL (65-115); Osmolality Calculated 290 mOsm/kg (285-295); Sodium 139 mmol/L (136-145); Total Bilirubin 0.3 mg/dL (0.15-1.2); Total Protein 5.9 g/dL (6.6-8.7)
[2021-05-02 07:48] LABS: Potassium 2.8 mmol/L (3.5-5.1)
--- NOTE | 2021-05-02 09:24 | PM.PN ---
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 The patient's hospital course was complicated by a bout of cryptogenic sepsis that he is recovering from. The patient is without c/o today. He wants to know when he can go home. Vitals/I&O/Wt Last Vital Signs Temp 98.0 F 05/02/21 08:00 Pulse 70 05/02/21 08:00 Resp 16 05/02/21 08:00 BP 112/60 05/02/21 08:00 Pulse Ox 99 05/02/21 08:00 05/01/21 05/02/21 05/02/21 22:59 06:59 14:59 Intake Total 1194.5 / 1494.5 170 / 1664.5 Output Total 100 / 100 600 / 700 240 / 240 Balance 1094.5 / 1394.5 -430 / 964.5 -240 / -240 Physical Exam Const: COMMON NORMALS: no acute distress, patient oriented x3 and alert HENMT: COMMON NORMALS: normocephalic, atraumatic, external ears normal and Normal external nose present HEAD & SCALP: normocephalic and atraumatic FACE & SINUS: normal facial exam NOSE: Normal external nose present EXTERNAL EAR: Yes external ears normal MOUTH: Normal oral and palatal mucosa present TEETH & GINGIVA: Yes caries Eye: COMMON NORMALS: EOMs intact bilaterally and conjunctivae normal CONJUNCTIVA: Yes conjunctivae normal Neck/C-Spine: COMMON NORMALS: no lymphadenopathy GENERAL: Yes trachea midline and Yes tracheostomy present (There is no periincisional swelling or erythema.) CERVICAL SPINE: Yes cervical ROM normal Lymph: LYMPHATIC: no lymphadenopathy noted Resp: COMMON NORMALS: normal respiratory effort, No retractions, No use of accessory muscles and clear to auscultation bilaterally AUSCULTATION: clear to auscultation bilaterally Cardio: COMMON NORMALS: regular rate, regular rhythm and No murmurs present (Cardio) RATE: regular rate RHYTHM: regular rhythm GI: COMMON NORMALS: Normal to inspection, nondistended, normoactive bowel sounds present Extremity: COMMON NORMALS: normal to inspection Neuro: COMMON NORMALS: patient oriented x3 SENSORIUM/ORIENTATION: Yes alert CRANIAL NERVES: Yes CN II (optic), Yes CN III (oculomotor), Yes CN IV (trochlear), Yes CN V (trigeminal), Yes CN (abducens), Yes CN VII (facial), Yes CN VIII (vestibulocochlear), Yes CN XI (spinal accessory) and Yes CN XII (hypoglossal) Psych: COMMON NORMALS: mental status grossly normal Data : 05/02/21 04:49 05/02/21 04:49 Micro: Microbiology 04/30/21 04:45 Gram Stain - Final Sputum - Expectorated Sputum Sputum Culture - Final A&P Additional A&P Information Impression: 1) 66 yo wm who is HD/POD #4 s/p Tracheotomy/DL with bx for a T4 SCCA of the larynx who is stable from this standpoing 2) Medical - Sepsis: Improved - Hypertension: Improved - Hypokalemia Plan: 1) Continue current trach care; I explained the plan which is to refer the patient to Heme/Onc, Radiation Oncology, and Surgical Oncology after discharge. We will discuss the final treatment plan at tumor board once this has been accomplished. 2) Dr. Rosales is to continue to manage these issues. Attestations Medical Necessity Statement*: The patient requires inpatient observation until his airway is stable. Coding Level of Care Code Acute Human Resources Services Specialist for Kolby Baker
[2021-05-02] MEDS: acetaminophen 325 mg Tablet PO (09:28)
[2021-05-02] MEDS: lisinopril 10 mg Tablet PO (09:30)
[2021-05-02] MEDS: amlodipine 10 mg Tablet PO (09:31)
[2021-05-02 09:32] LABS: Magnesium 1.7 mg/dL (1.7-2.3)
[2021-05-02] MEDS: acetylcysteine 200 mg/mL SDV 4 mL 100 MG INHALATION ×3 (09:34→20:47)
[2021-05-02] MEDS: fluticasone nasal spray 16gm Btl 1 SPRAY INTRANASAL (09:36)
[2021-05-02] MEDS: lidocaine 1% 5 ML in potassium chloride premix 100 ML 25 ML IV (09:48)
--- NOTE | 2021-05-02 12:46 | PC.SOCIAL ---
IMM Update Pg. 2 of IMM updated and reviewed with patient and his sister at bedside, both verbalized understanding. Copy provided.
--- NOTE | 2021-05-02 13:12 | P.PN_ITS ---
Subjective Subjective: Interval history: Reports today he is doing well. No additional complaints. Denies trouble breathing. No chest pain. Discussed with him severe hypokalemia, discussed with him replacement and checking for hypomagnesemia. He is agreeable, but remarks jokingly if you check the engine oil you may find it low too . He is visited by his sister at bedside. Vitals/I&O/Wt Last Vital Signs Temp 97.9 F 05/02/21 12:00 Pulse 69 05/02/21 12:00 Resp 12 05/02/21 12:00 BP 125/61 05/02/21 12:00 Pulse Ox 97 05/02/21 12:00 05/01/21 05/02/21 05/02/21 22:59 06:59 14:59 Intake Total 1194.5 / 1494.5 170 / 1664.5 559.5 / 559.5 Output Total 100 / 100 600 / 700 240 / 240 Balance 1094.5 / 1394.5 -430 / 964.5 319.5 / 319.5 Physical Exam Const: COMMON NORMALS: no acute distress and patient oriented x3 HENMT: COMMON NORMALS: oropharynx normal Neck/C-Spine: COMMON NORMALS: no JVD OTHER: Tracheostomy in place. Improving secretions. Thinner. Resp: COMMON NORMALS: normal respiratory effort and clear to auscultation bilaterally AUSCULTATION: clear to auscultation bilaterally Cardio: COMMON NORMALS: no JVD and regular rhythm RHYTHM: regular rhythm GI: COMMON NORMALS: Normal to inspection, nondistended, normoactive bowel sounds present Extremity: COMMON NORMALS: no joint enlargement and no pedal edema Neuro: COMMON NORMALS: patient oriented x3 and moves all extremities Skin: COMMON NORMALS: no rashes or lesions noted GENERAL SKIN EXAM: no rashes or lesions noted Data : 05/02/21 04:49 05/02/21 04:49 Micro: Microbiology 04/30/21 04:45 Gram Stain - Final Sputum - Expectorated Sputum Sputum Culture - Final A&P Assessment and plan (1) Sepsis: Resolved sepsis. Possibly secondary to mild pneumonitis or pneumonia, with copious secretions tracheitis was considered, but on discussion with ENT probably not likely. He is overall feeling much better. Sputum Gram stain with many gram-positive cocci, but final culture without growth. MRSA PCR negative. We will transition him to oral antibiotic with cefdinir. Stop Zosyn. Monitor. Rapid flu, rapid COVID-19 negative. No erythema around the trach. No GI symptoms. UA not suggestive of UTI. No suggestion of infection elsewhere. CTA and lower extremity duplex negative for VTE. Continue Lovenox for VTE prophylaxis. Famotidine for GI prophylaxis. Status: Acute (2) S/P emergency tracheotomy for assistance in breathing: ENT documentation appreciated. Continue postoperative care. Trach exchange on POD 5-7. Arrangements for home supplies. Status: Acute (3) Hypokalemia: Severe hypokalemia, potassium 2.8. Given 40 mg potassium. Magnesium 1.7, will give 1 g. Status: Acute Additional A&P Information Hypertension: Started on amlodipine 10mg, lisinoptil 10mg Hypomagnesemia: 1.7, replaced. Attestations Medical Necessity Statement*: Continue admission for postoperative care status post tracheostomy, with plan for tracheostomy exchange, continue management following resolved sepsis, de-escalate antibiotics. Replace severe hypokalemia. Coding Level of Care Code Acute Puzzle Assembler for [facility] Fwd Diagnoses Sepsis A41.9 S/P emergency tracheotomy for assistance in breathing Z93.0 Hypokalemia E87.6
[2021-05-02] MEDS: cefdinir 300 MG CAPSULE PO (17:20)
[2021-05-03] VITALS (12 sets, daily range): BP systolic 123–160; BP diastolic 53–71; PULSE 62–76; RESP 12–18; TEMP 36.6–37; O2SAT 92–98
[2021-05-03] MEDS: famotidine 20 mg/2 mL INJ IVP (02:59)
[2021-05-03] MEDS: acetylcysteine 200 mg/mL SDV 4 mL 100 MG INHALATION ×2 (03:05→09:17)
[2021-05-03] MEDS: enoxaparin 40 mg/0.4 mL Syringe SUBCUT (04:25)
--- NOTE | 2021-05-03 06:00 | XRR_ITS ---
PROCEDURE INFORMATION: Exam: XR Chest Exam date and time: 05/03/2021 6:00 AM Age: 66 years old Clinical indication: Shortness of breath; Prior surgery; Additional info: Hypoxia TECHNIQUE: Imaging protocol: XR of the chest. Views: 1 view. COMPARISON: 1. CR (CHEST, ) 04/29/2021 10:[address] angio chest PE protcl [id number] 04/30/2021 12:55:54 PM FINDINGS: Tubes, catheters and devices: Tip of tracheostomy cannula located approximately 5.5 cm cephalad to the clare. Lungs: Hyperinflated lungs with centrilobular emphysema. No focal consolidation. Basilar scarring noted. Pleural spaces: Unremarkable. No pleural effusion. No pneumothorax. Heart/Mediastinum: Cardiac silhouette remains mildly enlarged. Bones/joints: Unremarkable. XR/XR chest 1V portable [id number] IMPRESSION: 1. No acute findings. 2. Emphysema.
[2021-05-03 06:13] LABS: Basophils % 0.3 %; Eosinophils # 0.1 10^3/uL (0.0-0.8); Hematocrit 30.6 % (42.0-52.0); Hemoglobin 9.9 g/dL (11.7-16.6); Lymphocytes # 1.5 10^3/uL (0.8-4.8); Lymphocytes % 14.2 %; Mean Corpuscular HGB Conc 32.4 g/dL (30.0-36.0); Mean Corpuscular Hemoglobin 26.9 pg (28.0-34.0); Mean Corpuscular Volume 83.2 fL (80-94); Mean Platelet Volume 10.7 fL (7.4-10.4); Monocytes # 0.7 10^3/uL (0.2-0.9); Monocytes % 6.4 %; Neutrophils # 8.13 10^3/uL (1.8-7.7); Neutrophils % 77.7 %; Nucleated Red Blood Cells % 0 %; Platelet Count 374 10^3/cmm (130-400); Red Blood Count 3.68 10^6/uL (4.1-5.3); Red Cell Distribution Width 13.8 % (12.1-15.1); White Blood Count 10.5 10^3/uL (4.0-10.0)
[2021-05-03 06:48] LABS: Alanine Aminotransferase 26 U/L (0-41); Alkaline Phosphatase 131 IU/L (40-130); Anion Gap 12.7 (5-19); Aspartate Amino Transferase 24 U/L (0-40); Blood Urea Nitrogen 12 mg/dL (8-23); Calcium 8.5 mg/dL (8.5-10.5); Carbon Dioxide 25 mmol/L (22-29); Chloride 106 mmol/L (98-107); Glomerular Filtration Rate 215.2 mL/min (90-130); Glucose 100 mg/dL (65-115); Osmolality Calculated 290 mOsm/kg (285-295); Potassium 3.7 mmol/L (3.5-5.1); Sodium 140 mmol/L (136-145); Total Bilirubin 0.3 mg/dL (0.15-1.2)
--- NOTE | 2021-05-03 07:12 | PM.PN ---
Subjective Subjective: Interval history: 66 yo wm who is HD/POD #5 s/p tracheotomy/DL for a T4 Transglottic SCCA of the larynx. The patient is without c/o today. He reports that he is taking po well, and has no other c/o. Vitals/I&O/Wt Last Vital Signs Temp 98.0 F 05/03/21 04:00 Pulse 62 05/03/21 04:00 Resp 16 05/03/21 04:00 BP 135/65 05/03/21 04:00 Pulse Ox 92 05/03/21 04:00 05/02/21 05/03/21 05/03/21 22:59 06:59 14:59 Intake Total 120 / 886.5 120 / 1006.5 Output Total 175 / 415 250 / 665 300 / 300 Balance -55 / 471.5 -130 / 341.5 -300 / -300 Physical Exam Const: COMMON NORMALS: no acute distress and patient oriented x3 HENMT: COMMON NORMALS: normocephalic and external ears normal HEAD & SCALP: normocephalic EXTERNAL EAR: Yes external ears normal Eye: COMMON NORMALS: EOMs intact bilaterally, conjunctivae normal and no scleral icterus CONJUNCTIVA: Yes conjunctivae normal Neck/C-Spine: COMMON NORMALS: full ROM, no lymphadenopathy and supple GENERAL: Yes trachea midline and Yes tracheostomy present (The trach site is clean, dry, and without erythema.) Chest: COMMONS NORMALS: normal inspection of the chest and normal palpation of entire chest wall Resp: COMMON NORMALS: normal respiratory effort, No use of accessory muscles and clear to auscultation bilaterally AUSCULTATION: clear to auscultation bilaterally Cardio: COMMON NORMALS: regular rate, regular rhythm and No murmurs present (Cardio) RATE: regular rate RHYTHM: regular rhythm GI: COMMON NORMALS: Normal to inspection, nondistended, normoactive bowel sounds present and non-tender Extremity: COMMON NORMALS: normal to inspection and full ROM Neuro: COMMON NORMALS: patient oriented x3, CN's II-XII intact bilaterally and moves all extremities Psych: COMMON NORMALS: mental status grossly normal Data : 05/03/21 05:45 05/03/21 05:45 Micro: Microbiology 04/30/21 04:45 Gram Stain - Final Sputum - Expectorated Sputum Sputum Culture - Final A&P Additional A&P Information Impression: 1) HD/POD #5 s/t tracheotomy/DL for a T4 Transglottic SCCA of the larynx doing well from this standpoint 2) Medical - Sepsis: Improved - Hypertension: Improved - Hypokalemia: Improved 3) D/C Planning Plan: 1) First Trach change tomorrow; will arrange Hem/Onc, Radiation Onc, and Surgical Oncology evaluations as an outpatient. 2) As per the Hospitalist Team 3) Social Work Service working on this - I will contact them tomorrow. Attestations Medical Necessity Statement*: The patient requires inpatient care until the first trach change. Coding Level of Care Code Acute Transportation Program Director for Kolby Baker
--- NOTE | 2021-05-03 07:23 | PC.NURSE ---
Reading his book.
[2021-05-03] MEDS: cefdinir 300 MG CAPSULE PO ×2 (10:04→19:34)
[2021-05-03] MEDS: fluticasone nasal spray 16gm Btl 1 SPRAY INTRANASAL (10:13)
--- NOTE | 2021-05-03 15:28 | P.PN_ITS ---
Subjective Subjective: Interval history: He reports he is doing well. Denies any complaints. No pain. No chest pain or pressure. He is not short of breath. States nurses have been providing him with teaching regarding trach care. Vitals/I&O/Wt Last Vital Signs Temp 98.6 F 05/03/21 11:55 Pulse 67 05/03/21 15:15 Resp 17 05/03/21 15:15 BP 123/53 05/03/21 11:55 Pulse Ox 97 05/03/21 15:15 05/03/21 05/03/21 05/03/21 06:59 14:59 22:59 Intake Total 120 / 1006.5 600 / 600 Output Total 250 / 665 300 / 300 Balance -130 / 341.5 300 / 300 Physical Exam Const: COMMON NORMALS: no acute distress and patient oriented x3 HENMT: COMMON NORMALS: oropharynx normal Neck/C-Spine: COMMON NORMALS: no JVD OTHER: Tracheostomy in place. Yellow secretions. Resp: COMMON NORMALS: normal respiratory effort and clear to auscultation bilaterally AUSCULTATION: clear to auscultation bilaterally and rhonchi Cardio: COMMON NORMALS: no JVD and regular rhythm RHYTHM: regular rhythm GI: COMMON NORMALS: Normal to inspection, nondistended, normoactive bowel sounds present Extremity: COMMON NORMALS: no joint enlargement and no pedal edema Neuro: COMMON NORMALS: patient oriented x3 and moves all extremities Skin: COMMON NORMALS: no rashes or lesions noted GENERAL SKIN EXAM: no rashes or lesions noted Data : 05/03/21 05:45 05/03/21 05:45 A&P Assessment and plan (1) Sepsis: Resolved sepsis. Possibly secondary to mild pneumonitis or pneumonia, with copious secretions tracheitis was considered but on discussion with ENT probably not likely. Does have underlying COPD. Some rhonchi noted. Sputum culture with moderate mixed upper respiratory meena. He was switched to cefdinir, and is doing well, remains afebrile, leukocytosis resolved to near normal, 10.5. Will complete cefdinir course empirically. He is doing well, denying any complaints. Rapid flu, rapid PCR COVID-19 negative. No erythema around the trach. No GI symptoms. UA not suggestive of UTI. No suggestion of infection elsewhere. CTA and lower extremity duplex negative for VTE. Continue Lovenox for VTE prophylaxis. Famotidine for GI prophylaxis. Status: Acute (2) S/P emergency tracheotomy for assistance in breathing: ENT documentation appreciated. Continue postoperative care. Trach exchange on POD 5-7. Arrangements for home supplies. Education regarding trach care. States this is being provided. Will need follow-up after discharge. Status: Acute (3) Hypokalemia: Replaced. Status: Acute Additional A&P Information Hypertension: Blood pressure at goal. Continue amlodipine, lisinopril. Prescriptions given. Instructed to continue monitoring blood pressures at home. Hypomagnesemia: Replaced. Smoking addiction: Encourage cessation. Nicotine patches provided to help. Follow-up with primary provider. Given he is doing well, will at this time sign off the case, but please feel free to contact with any questions or reconsult hospitalist service anytime in case of additional problems. Attestations Medical Necessity Statement*: Continue admission for tracheostomy care and pending tracheostomy exchange, monitoring following resolved sepsis. Discharge arrangements. Coding Level of Care Code Acute Vice President Corporate Communications for Kolby Fwpal Exam Comprehensive Diagnoses Sepsis A41.9 S/P emergency tracheotomy for assistance in breathing Z93.0 Hypokalemia E87.6
[2021-05-03] MEDS: famotidine 20 mg Tablet PO (19:34)
[2021-05-03] MEDS: lactated ringers 1,000 ML 30 ML IV (19:41)
[2021-05-04] VITALS (14 sets, daily range): BP systolic 138–175; BP diastolic 53–79; PULSE 64–85; RESP 14–18; TEMP 36.5–37.1; O2SAT 90–98
[2021-05-04] MEDS: enoxaparin 40 mg/0.4 mL Syringe SUBCUT (04:13)
--- NOTE | 2021-05-04 04:57 | PM.PN ---
Subjective Subjective: Interval history: 66 yo wm who is HD/POD #6 s/p tracheotomy/DL for a partially obstructing transglottic T4 SCCA of the larynx. The patient wants to go home, but is o/w without c/o. He reports that he is eating well. Vitals/I&O/Wt Last Vital Signs Temp 97.7 F 05/04/21 04:00 Pulse 80 05/04/21 04:00 Resp 17 05/04/21 04:00 BP 146/68 05/04/21 04:00 Pulse Ox 90 05/04/21 04:00 05/03/21 05/03/21 05/04/21 14:59 22:59 06:59 Intake Total 1040.5 / 1040.5 240 / 1280.5 Output Total 300 / 300 225 / 525 475 / 1000 Balance 740.5 / 740.5 15 / 755.5 -475 / 280.5 Physical Exam Const: COMMON NORMALS: no acute distress and patient oriented x3 HENMT: COMMON NORMALS: atraumatic and external ears normal HEAD & SCALP: atraumatic EXTERNAL EAR: Yes external ears normal Eye: COMMON NORMALS: EOMs intact bilaterally and conjunctivae normal CONJUNCTIVA: Yes conjunctivae normal Neck/C-Spine: COMMON NORMALS: no lymphadenopathy and Thyroid normal GENERAL: Yes tracheostomy present (The trach site is clean, well healed, and without erythema.) THYROID: Thyroid normal Resp: COMMON NORMALS: normal respiratory effort, No retractions, No use of accessory muscles and clear to auscultation bilaterally AUSCULTATION: clear to auscultation bilaterally Cardio: COMMON NORMALS: regular rate, regular rhythm and No murmurs present (Cardio) RATE: regular rate RHYTHM: regular rhythm GI: COMMON NORMALS: Normal to inspection, nondistended, normoactive bowel sounds present and non-tender Extremity: COMMON NORMALS: normal to inspection and full ROM Neuro: COMMON NORMALS: patient oriented x3, CN's II-XII intact bilaterally and moves all extremities Psych: COMMON NORMALS: mental status grossly normal Skin: COMMON NORMALS: no rashes or lesions noted GENERAL SKIN EXAM: no rashes or lesions noted Data : 05/03/21 05:45 05/03/21 05:45 A&P Additional A&P Information Impression: 1) HD/POD #6 s/p tracheotomy/DL for a partially obstructing T4 Transglottic SCCA of the larynx - the patient is doing well from this standpoint. He will need evaluation by Heme/Onc, Rad/Onc, and Surgical Oncology after discharge. He will need training in trach care. I discussed discharge to a group home with the patient which he refuses. We will work on Home d/c with daily home health visits, Home suction, and Home humidification. We will d/c the patient as soon as this has been arranged. 2) Medical: - Sepsis: resolved on antibiotics - Hypertension: Stable on po Lisinopril 3) Discharge Planning: Social work service working on the above. I will contact them today. Attestations Medical Necessity Statement*: The patient requires inpatient care until Home Health/Home Suction/Home Humidification has been arranged. Procedures Procedure Narrative Procedure Note: verbal informed consent was obtained from the patient; the old trach was removed and was replaced with a #8 [place], uncuffed trach tube without difficulty; the patient was instructed in trach care; the patient tolerated the procedure well and there were no complications. Coding Level of Care Code Acute Master Cook for Kolby Baker
--- NOTE | 2021-05-04 05:11 | PC.NURSE ---
SHIFT SUMMARY Took over pts care around midnight. Has not slept well and c/o that he hasn't really had a decent nights rest since admit. Says too many things going on. Dr Almazan in this am and changed out trach at bedside. Sx alot of white to yellow secretions with change. Pt asking Dr guillaume of questions about getting rid of the trach and about going home. Is adamant that he goes home today. Tried to explain Soc Services is working on this and has things that need to be set up so he can go home. Tells me he is not used to just laying around in bed. Writes, gestures and mouths words to communicate. Denied any need for pain med
[2021-05-04 06:27] LABS: Basophils % 0.4 %; Eosinophils # 0.1 10^3/uL (0.0-0.8); Eosinophils % 0.6 %; Hematocrit 34.5 % (42.0-52.0); Hemoglobin 10.9 g/dL (11.7-16.6); Lymphocytes # 1.7 10^3/uL (0.8-4.8); Lymphocytes % 15.7 %; Mean Corpuscular HGB Conc 31.6 g/dL (30.0-36.0); Mean Corpuscular Hemoglobin 26.8 pg (28.0-34.0); Mean Platelet Volume 10.9 fL (7.4-10.4); Monocytes # 0.6 10^3/uL (0.2-0.9); Monocytes % 5.9 %; Neutrophils % 76.5 %; Nucleated Red Blood Cells % 0 %; Platelet Count 447 10^3/cmm (130-400); Red Blood Count 4.06 10^6/uL (4.1-5.3); Red Cell Distribution Width 13.9 % (12.1-15.1); White Blood Count 10.9 10^3/uL (4.0-10.0)
[2021-05-04 06:45] LABS: Alanine Aminotransferase 27 U/L (0-41); Albumin Level 2.9 g/dL (3.5-5.2); Alkaline Phosphatase 125 IU/L (40-130); Anion Gap 14.5 (5-19); Aspartate Amino Transferase 20 U/L (0-40); Blood Urea Nitrogen 11 mg/dL (8-23); Calcium 8.5 mg/dL (8.5-10.5); Carbon Dioxide 22 mmol/L (22-29); Chloride 106 mmol/L (98-107); Globulin 3.4 g/dL (1.3-4.6); Glomerular Filtration Rate 215.2 mL/min (90-130); Glucose 96 mg/dL (65-115); Osmolality Calculated 287 mOsm/kg (285-295); Potassium 3.5 mmol/L (3.5-5.1); Sodium 139 mmol/L (136-145); Total Bilirubin 0.3 mg/dL (0.15-1.2); Total Protein 6.3 g/dL (6.6-8.7)
[2021-05-04] MEDS: cefdinir 300 MG CAPSULE PO ×2 (09:30→17:20)
[2021-05-04] MEDS: lisinopril 10 mg Tablet PO (09:30)
[2021-05-04] MEDS: famotidine 20 mg Tablet PO ×2 (09:30→17:20)
[2021-05-04] MEDS: amlodipine 10 mg Tablet PO (09:30)
--- NOTE | 2021-05-04 11:38 | PC.SOCIAL ---
IMM Update Pg. 2 of IMM updated and reviewed with patient. Verbalized understanding. Copy provided. Initialed, dated, and timed in chart.
--- NOTE | 2021-05-04 16:25 | ECG_ITS ---
[facility] ED Test Date: 2021-05-04 Pat Name: Cristobal Delatorre Department: Room: 269 Gender: Male Fibre Composite Technician: : 1955 Requested By: Carlos A Hatfield Order Number: [id number] Diego MD: Patricia Hallman M.D. Measurements Intervals [place] Rate: 81 P: 63 [place]: 139 QRS: 55 QRSD: 106 T: 45 QT: 388 QTc: 451 Interpretive Statements SINUS RHYTHM WITH FREQUENT SUPRAVENTRICULAR PREMATURE COMPLEXES No previous ECG available for comparison Electronically Signed On 05-07-2021 7:05:04 CDT by Patricia Hallman M.D. [email or web address]
[2021-05-04] MEDS: lactated ringers 1,000 ML 30 ML IV (21:38)
[2021-05-05] VITALS (11 sets, daily range): BP systolic 123–150; BP diastolic 49–74; PULSE 59–88; RESP 16–18; TEMP 36.5–37.2; O2SAT 94–100
[2021-05-05] MEDS: enoxaparin 40 mg/0.4 mL Syringe SUBCUT (06:03)
[2021-05-05] MEDS: famotidine 20 mg Tablet PO ×2 (09:25→17:10)
[2021-05-05] MEDS: amlodipine 10 mg Tablet PO (09:25)
[2021-05-05] MEDS: lisinopril 10 mg Tablet PO (09:25)
[2021-05-05] MEDS: cefdinir 300 MG CAPSULE PO ×2 (09:25→17:10)
[2021-05-05] MEDS: fluticasone nasal spray 16gm Btl 1 SPRAY INTRANASAL (09:27)
--- NOTE | 2021-05-05 13:01 | PM.PN ---
Subjective Subjective: Interval history: 66 yo wm who is HD/POD #7 s/p tracheotomy/DL who is doing well. The patient is taking po well, and has no c/o. Medications: Reviewed: Yes Vitals/I&O/Wt Last Vital Signs Temp 97.7 F 05/05/21 11:53 Pulse 88 05/05/21 11:53 Resp 18 05/05/21 11:53 BP 127/74 05/05/21 11:53 Pulse Ox 100 05/05/21 11:53 05/04/21 05/05/21 05/05/21 22:59 06:59 14:59 Intake Total 898.5 / 1138.5 240 / 240 Output Total 600 / 600 600 / 600 Balance 898.5 / 1138.5 -600 / 538.5 -360 / -360 Physical Exam Const: COMMON NORMALS: no acute distress, average body habitus and patient oriented x3 GENERAL APPEARANCE: cooperative and well developed HENMT: COMMON NORMALS: normocephalic, hearing grossly normal bilaterally and Normal external nose present HEAD & SCALP: normal to inspection and normocephalic FACE & SINUS: normal facial exam NOSE: Normal external nose present MOUTH: Normal oral and palatal mucosa present Eye: COMMON NORMALS: EOMs intact bilaterally and conjunctivae normal GENERAL EYE: appearance normal, both eyes and all related structures and normal light reflex CONJUNCTIVA: Yes conjunctivae normal DIRECT OPHTHALMOSCOPY: Yes normal light reflex Neck/C-Spine: COMMON NORMALS: no lymphadenopathy, supple and Thyroid normal GENERAL: Yes trachea midline and Yes tracheostomy present (The trach site is clean, dry, and without erythema.) THYROID: Thyroid normal Lymph: LYMPHATIC: no lymphadenopathy noted Resp: COMMON NORMALS: normal respiratory effort, No retractions and clear to auscultation bilaterally AUSCULTATION: clear to auscultation bilaterally Cardio: COMMON NORMALS: regular rate, regular rhythm and No murmurs present (Cardio) RATE: regular rate RHYTHM: regular rhythm GI: COMMON NORMALS: Normal to inspection, nondistended, normoactive bowel sounds present and Soft to palpation PALPATION: Yes Soft to palpation Extremity: COMMON NORMALS: normal to inspection Neuro: COMMON NORMALS: patient oriented x3, CN's II-XII intact bilaterally and moves all extremities Psych: COMMON NORMALS: mental status grossly normal Data : 05/04/21 05:09 05/04/21 05:09 Micro: Microbiology 04/29/21 22:22 Blood Culture - Final Blood NO GROWTH AFTER 5 DAYS 04/29/21 22:15 Blood Culture - Final Blood NO GROWTH AFTER 5 DAYS A&P Additional A&P Information Impression: 1) 66 yo wm POD #7 s/p Tracheotomy/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 2) Continue po Omnicef 3) Continue Lisinopril; the patient will f/u with his PCP after discharge. Attestations Medical Necessity Statement*: The patient requires inpatient care until Home Health can be arranged. Coding Level of Care Code Acute Pit And Auxiliaries Supervisor for Kolby Baker
[2021-05-05] MEDS: lactated ringers 1,000 ML 30 ML IV (20:33)
[2021-05-06] VITALS (7 sets, daily range): BP systolic 125–148; BP diastolic 67–78; PULSE 60–98; RESP 14–18; TEMP 36.7–37.1; O2SAT 95–98
--- NOTE | 2021-05-06 05:08 | P.PN_ITS ---
Subjective Subjective: Interval history: 66 yo wm with a h/o an obstructing transglottic SCCA of the larynx who is POD #8 s/p Tracheotomy/DL. The patient is doing well by his report. He reports that he can clean and change his inner cannula. He is o/w without c/o. Vitals/I&O/Wt Last Vital Signs Temp 98.7 F 05/06/21 04:00 Pulse 75 05/06/21 04:00 Resp 18 05/06/21 04:00 BP 125/67 05/06/21 04:00 Pulse Ox 95 05/06/21 04:00 05/05/21 05/05/21 05/06/21 14:59 22:59 06:59 Intake Total 240 / 240 927.5 / 1167.5 Output Total 600 / 600 200 / 800 500 / 1300 Balance -360 / -360 727.5 / 367.5 -500 / -132.5 Physical Exam Const: COMMON NORMALS: no acute distress and patient oriented x3 HENMT: COMMON NORMALS: normocephalic, atraumatic and Normal external nose present HEAD & SCALP: normocephalic and atraumatic FACE & SINUS: normal facial exam NOSE: Normal external nose present MOUTH: Normal oral and palatal mucosa present Eye: GENERAL EYE: appearance normal, both eyes and all related structures Neck/C-Spine: COMMON NORMALS: no lymphadenopathy, supple and Thyroid normal GENERAL: Yes trachea midline and Yes tracheostomy present (The trach site is clean and without erythema or induration.) THYROID: Thyroid normal Chest: COMMONS NORMALS: normal inspection of the chest and normal palpation of entire chest wall Resp: COMMON NORMALS: normal respiratory effort and clear to auscultation bilaterally AUSCULTATION: clear to auscultation bilaterally Cardio: COMMON NORMALS: regular rate, regular rhythm and No murmurs present (Cardio) RATE: regular rate RHYTHM: regular rhythm GI: COMMON NORMALS: Normal to inspection, nondistended, normoactive bowel sounds present and Soft to palpation PALPATION: Yes Soft to palpation Extremity: COMMON NORMALS: normal to inspection and full ROM Neuro: COMMON NORMALS: patient oriented x3 and CN's II-XII intact bilaterally Skin: COMMON NORMALS: no rashes or lesions noted GENERAL SKIN EXAM: no rashes or lesions noted Data : 05/04/21 05:09 05/04/21 05:09 A&P Additional A&P Information Impression: 1) POD/HD #8 s/p Tracheotomy/DL for an obstructing transglottic SCCA who is stable from this standpoint 2) Sepsis: Resolved on antibiotics 3) Hypertension: Resolved on Lisinopril Plan: 1) The patient is to be evaluated by Home Health today; we will d/c to home after this evaluation 2) The patient is to continue his Omnicef for 10 days after discharge 3) The patient is to continue Lisinopril and f/u with his PCP after discharge. Attestations Medical Necessity Statement*: The patient required inpatient care until trach stable and Home Health was arranged Coding Level of Care Code Acute Senior Restaurant Manager for Kolby Baker
[2021-05-06] MEDS: cefdinir 300 MG CAPSULE PO (08:45)
[2021-05-06] MEDS: famotidine 20 mg Tablet PO (08:45)
[2021-05-06] MEDS: amlodipine 10 mg Tablet PO (08:45)
[2021-05-06] MEDS: lisinopril 10 mg Tablet PO (08:45)
--- NOTE | 2021-05-06 14:05 | P.HP_ITS ---
Providers/Chief Complaint Admitting Physician: Carlos A Almazan MD Chief Complaint: Tracheotomy,Laryngoscopy, esophagoscopy History of Present Illness Cristobla Delatorre is a 66 year old male with a several month h/o increasing hoarseness who was noted to have a left supraglottic mass on outpatient endoscopic exam. He presents for surgical management of his airway and biopsy of his laryngeal mass for diagnostic purposes. The patient reports 'soreness' of the left jugulodigastric neck over this time period, but denies any noted neck masses, shortness of breath, or other related symptoms. He is a 1/2 pack per day smoker. The patient denies any other noted palliative or provocative factors, and describes his current symptoms as moderate. Medications/Allergies Home Medications Medication Instructions Recorded Confirmed Last Taken Type acetaminophen 500 mg PO Q6H PRN 04/27/21 04/28/21 04/28/21 History fluticasone propionate [Flonase 1 spray INTRANASAL DAILY 04/27/21 04/28/21 04/27/21 History Allergy Relief] tramadol 50 mg PO Q6H PRN 04/27/21 04/27/21 Unknown History Allergies Allergy/AdvReac Type Severity Reaction Status Date / Time No Known Allergies Allergy Verified 04/27/21 14:00 PFSH Acute PFSH: Medical History Laryngitis Stomach ulcer Surgical History H/O removal of cyst Family History Other Family history non-contributory Social History Smoking and tobacco status: current every day smoker cigarettes Packs smoked per day: 0.5 Vitals/I&O/Wt Last Vital Signs Temp 98.1 F 05/06/21 08:00 Pulse 75 05/06/21 14:00 Resp 17 05/06/21 08:00 BP 132/68 05/06/21 08:00 Pulse Ox 97 05/06/21 08:00 05/05/21 05/06/21 05/06/21 22:59 06:59 14:59 Intake Total 927.5 / 1167.5 240 / 240 Output Total 200 / 800 500 / 1300 200 / 200 Balance 727.5 / 367.5 -500 / -132.5 40 / 40 Physical Exam Const: COMMON NORMALS: no acute distress, patient oriented x3 and alert HENMT: COMMON NORMALS: normocephalic, atraumatic, EAC's normal, TM's normal bilaterally, Normal external nose present, Normal nasal mucous membranes and turbinates present and oropharynx normal FACE & SINUS: normal facial exam MOUTH: Normal oral and palatal mucosa present and tongue normal TEETH & GINGIVA: Yes caries Eye: COMMON NORMALS: Equal, round and reactive pupils present, EOMs intact bilaterally, conjunctivae normal and no scleral icterus Neck/C-Spine: COMMON NORMALS: full ROM, no lymphadenopathy, supple and Thyroid normal GENERAL: Yes trachea midline Chest: COMMONS NORMALS: normal inspection of the chest Resp: COMMON NORMALS: normal respiratory effort, No retractions and clear to auscultation bilaterally Cardio: COMMON NORMALS: regular rate, regular rhythm and No murmurs present (Cardio) GI: COMMON NORMALS: Normal to inspection, nondistended, normoactive bowel sounds present and Soft to palpation Extremity: COMMON NORMALS: normal to inspection and full ROM Neuro: COMMON NORMALS: patient oriented x3, CN's II-XII intact bilaterally and moves all extremities Psych: COMMON NORMALS: mental status grossly normal and cooperative Skin: COMMON NORMALS: no rashes or lesions noted Data : 05/04/21 05:09 05/04/21 05:09 A&P Additional A&P Information Impression: 66 yo wm with a h/o a partially obstructing mass of the left supraglottis suspicious for malignancy with a threatened airway Plan: Admit for urgent tracheotomy with Direct Laryngoscopy and Esophagoscopy with biopsy to obtain a definitive diagnosis of the patient's laryngeal mass. Attestations Medical Necessity Statement*: The patient requires inpatient care until his airway has been stablized. Coding Level of Care Code Acute Shield Installer for Kolby Baker
--- NOTE | 2021-05-06 14:12 | PM.DCS ---
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 The patient was admitted to secure his airway and establish a definitive diagnosis of the mass with tracheotomy and direct laryngoscopy with biopsy. Hospital Course Hospital Course The patient underwent tracheotomy with direct laryngoscopy with biopsy on the day of admission. Please see the op report for details of this procedure. The patient was admitted to the intensive care unit postoperatively for management of the airway. In the immediate postoperative period the patient developed a fever and was noted to have hypertension. The hospitalist service was consulted for management of sepsis and hypertension which the did by treating the patient with lisinopril and IV Zosyn and vancomycin. Although the sepsis evaluation turned up no source for the patient's sepsis, he responded to the antibiotics and defervesced. The patient's blood pressure responded to lisinopril as well. The patient was then transferred to the floor where he did well and received daily trach care by Respiratory Therapy. The patient underwent his first trach change on postoperative day #6. The patient and his family were instructed in tracheotomy care, and once home health arrangements were made and home suction and humidification equipment was available for the patient, he was discharged to home. The patient was in stable condition at the time of his discharge. Physical Exam Const: COMMON NORMALS: no acute distress, average body habitus and patient oriented x3 HENMT: COMMON NORMALS: normocephalic, atraumatic, hearing grossly normal bilaterally, external ears normal and Normal external nose present HEAD & SCALP: normocephalic and atraumatic FACE & SINUS: normal facial exam NOSE: Normal external nose present EXTERNAL EAR: Yes external ears normal MOUTH: Normal oral and palatal mucosa present TEETH & GINGIVA: Yes caries Eye: COMMON NORMALS: Equal, round and reactive pupils present, EOMs intact bilaterally, conjunctivae normal and no scleral icterus CONJUNCTIVA: Yes conjunctivae normal PUPIL: Yes Equal, round and reactive pupils present Neck/C-Spine: COMMON NORMALS: no lymphadenopathy, supple and Thyroid normal GENERAL: Yes trachea midline and Yes tracheostomy present THYROID: Thyroid normal Lymph: LYMPHATIC: no lymphadenopathy noted Chest: COMMONS NORMALS: normal inspection of the chest Resp: COMMON NORMALS: normal respiratory effort, No retractions, No use of accessory muscles and clear to auscultation bilaterally AUSCULTATION: clear to auscultation bilaterally Cardio: COMMON NORMALS: regular rate, regular rhythm and No murmurs present (Cardio) RATE: regular rate RHYTHM: regular rhythm GI: COMMON NORMALS: Normal to inspection, nondistended, normoactive bowel sounds present and non-tender Extremity: COMMON NORMALS: normal to inspection and full ROM Neuro: COMMON NORMALS: patient oriented x3, CN's II-XII intact bilaterally and no focal motor deficits Psych: COMMON NORMALS: mental status grossly normal, Normal thought process present, cooperative and normal affect THOUGHT PROCESS: Normal thought process present Skin: COMMON NORMALS: no rashes or lesions noted GENERAL SKIN EXAM: no rashes or lesions noted Sepsis: Is patient septic: No Focused sepsis exam performed: Yes Date exam was performed: 05/06/21 Time exam was performed: 14:21 Discharge Data Data Completed and Pending: Completed Studies During Hospitalization Category Date Time Status CT angio chest PE protcl [id number] Rout ine Cat Scan 04/30/21 09:13 Completed XR chest 1V roly ble [id number] Routine Exams 04/29/21 17:31 Completed XR chest 1V roly ble [id number] Routine Exams 05/03/21 06:00 Completed XR chest 1V roly ble [id number] Stat Exams 04/29/21 22:06 Completed Pathology: Surgic al [PTH] Routine Pth 04/28/21 09:50 [place] [id number] Routin e Ultrasound 04/30/21 10:05 Completed Pending at discharge Category Date Time Status ES surgery / GI i mages Routine Exams 04/28/21 09:21 Taken Vitals: Last Vital Signs Temp 98.1 F 05/06/21 08:00 Pulse 75 05/06/21 14:00 Resp 17 05/06/21 08:00 BP 132/68 06/30/21 08:00 Pulse Ox 97 05/06/21 08:00 Discharge Plan Discharge Patient Disposition: Home Health Service Condition: Stable Prescriptions: New hydrocodone-acetaminophen 5-325 mg tablet 1 tab PO Q6H PRN (Reason: pain) Qty: 25 RF: 0 lisinopril 10 mg Tablet 10 mg PO DAILY Qty: 30 RF: 0 amlodipine 10 mg Tablet 10 mg PO DAILY Qty: 30 RF: 0 cefdinir 300 mg capsule 300 mg PO BID Qty: 6 RF: 0 nicotine 21 mg/24 hr Patch 24 Hour 1 patch transdermal DAILY PRN (Reason: Withdrawal) Qty: 30 RF: 0 Continued tramadol 50 mg Tablet 50 mg PO Q6H PRN (Reason: Pain) RF: 0 fluticasone propionate [Flonase Allergy Relief] 50 mcg/actuation [place],Suspension 1 spray INTRANASAL DAILY RF: 0 Discontinued acetaminophen 500 mg Tablet 500 mg PO Q6H PRN (Reason: Pain) RF: 0 Discharge Orders: Discharge Order (Routine); Ordered 05/06/21 Ordered By: Carlos A Almazan Other Ambulatory Orders: DME: Miscellaneous (Order) Location: None Selected Ordered By: Carlos A Almazan DME: Miscellaneous (Order) Location: None Selected Ordered By: Carlos A Almazan Referrals: Tonia Gonzales [Referring] - 4-7 days Discharge Diet: Advance as tolerated and Cardiac Discharge Activity: Resume usual activity and Oxygen as instructed Patient Instructions: Lisinopril (By mouth), Hydrocodone/Acetaminophen (By mouth), Amlodipine (By mouth), Tracheostomy Care (GEN), Tracheotomy (DC), Chronic Hypertension (GEN), Opioid Safety Activity Restrictions/Additional Instructions: 1) Please attempt to stop smoking. Continued smoking will put you at risk of cancer progression, progression of COPD and risk of other lung disease, cardiovascular disease including heart attack and stroke, as well as risk of other cancer. You can use the nicotine patches to help you stop. Discussed with your primary provider other strategies in case you are having difficulties. Please continue to monitor blood pressure at home twice daily, record values to bring to your appointment with primary provider. You are started on 2 blood pressure medications, amlodipine and lisinopril, to help maintain your blood pressure at target of 120/80. 2) Suction trach Q hour and prn, change or clean trach inner cannula once daily; do not remove the outer trach tube; ensure that the trach tube shield is tight against the skin 3) [place] (5/325) tabs for pain as above 4) Take Amlodipine and Lisinopril for high blood pressure 5) Complete Omnicef as an outpatient 6) F/U in Dr. Almazan's office in one week 7) Use humidifed oxygen via trach collar when not ambulating Discharge Attestations Time Spent in Discharge Care*: greater than 30 min Quality Metrics Clinical Quality Measures During this hospital stay, did patient experience: None Coding Level of Care Code Acute Chg FW DC note Diagnoses Sepsis A41.9 S/P emergency tracheotomy for assistance in breathing Z93.0 Hypokalemia E87.6
--- NOTE | 2021-05-06 15:47 | PC.NURSE ---
THIS NURSE GAVE PRESCRIPTIONS TO PATIENT AND SISTER WRITTEN BY DR. TAVARES.
[2021-05-12 05:39] LABS: PD-L1 (Clone 22C3) by IHC BBPL See Report
== END 2021-05-06 15:48 | disposition home health service (06) | DRG 11 ==
LOC: ICU 15:12 → MEDSURG 05-01 15:49
PROVIDERS: Internal Medicine; Admitting Provider Specialist; Visit Provider Specialist
PROC: 0B110F4 Bypass Trachea to Cutaneous with Tracheostomy Device, Open Approach (ICD-10-PCS; principal; 2021-04-28 08:25)
PROC: 0CJS8ZZ Inspection of Larynx, Via Natural or Artificial Opening Endoscopic (ICD-10-PCS; 2021-04-28 08:25)
PROC: 0DJ08ZZ Inspection of Upper Intestinal Tract, Via Natural or Artificial Opening Endoscopic (ICD-10-PCS; 2021-04-28 08:25)
DX: C32.1 Malignant neoplasm of supraglottis (principal); A41.9 Sepsis, unspecified organism; F17.210 Nicotine dependence, cigarettes, uncomplicated; I10 Essential (primary) hypertension; E87.6 Hypokalemia
CPT/HCPCS: 12345; 36415; 71045; 71275; 80048; 80053; 80202; 81001; 81003; 82565; 83605; 83735; 84145; 84443; 85025; 87040; 87070; 87205; 87426; 87641; 87804; 88305; 88342; 93005; 93970; 94640; 94664; 94799; 96372; G0378; J0171; J1100; J1650; J2250; J2270; J2405; J2543; J2704; J3010; J3370; J3475; J3480; J3490; J7030; J7608; J7611; Q9967

== ENCOUNTER 2021-05-13 13:54 | Outpatient (CLI) | payer MEDICARE, SELFPAY ==
--- NOTE | 2021-05-13 16:29 | ONC FU_ITS ---
Dr. Plascencia follow up note Patient: Cristobal Delatorre Unit #: [id number]: 1955 Dicatated By: Laura Plascencia M.D.Date of Visit:May 13, 2021 Onc Med Follow-up/Prog Note History of Present Illness: Mr. Cristobal Delatorre, is a 66-year-old gentleman with a several month history of hoarseness of voice and also complaining of painful lump in left upper neck, no hemoptysis or hematemesis, no night sweats, no significant weight loss, was referred to ENT for evaluation, underwent flexible laryngoscope on April 20, 2021 which confirmed left laryngeal mass with partial obstructed, but stable air with, right vocal cord is mobile, patient underwent CT scan of the neck on April 21, 2021 which confirmed large left supraglottic Laryngeal and hypopharyngeal neoplasm with probable involvement of left false and possibly true cords. Sclerotic changes in the left arytenoid and upper cricoid cartilage suggest possible tumor involvement. A few enlarged left cervical lymph nodes possible metastatic., Mild diffuse thickening of uvula., Biopsy was obtained on April 28, 2021 which confirmed squamous cell carcinoma, invasive, poorly differentiated involving epiglottic mass. CT PET scan was done on May 09, 2021 which showed 2.2 x 2.8 cm with SUV of 21.9 mass and left-sided larynx with narrowing of trachea at the level of hyoid bone. There is a modest activity in subcentimeter left jugulodigastric level 3 lymph node with SUV up to 2.7 could be reactive but malignancy is not excluded. Patient underwent preventive tracheostomy, tolerated procedure well and now here for evaluation regarding further treatment. Patient denies any aspirations, denies any hematemesis or hemoptysis, denies any dysphagia, denies any shortness of breath or wheezing, denies any jaundice denies any new bony pains. Patient has history of heavy smoking about 50 years, quit recently. Medications: amLODIPine Besylate 1 Tablet (of 10 mg) Oral daily, Cefdinir 1 Capsule (of 300 mg) Oral b.i.d., Flonase 1 [place](s) (of 50 mcg/act) Suspension Nasal daily, HYDROcodone-Acetaminophen 1 Tablet (of 5-325 mg) Oral q 5 hours PRN, Lisinopril 1 Tablet (of 10 mg) Oral daily, traMADol HCl 1 Tablet (of 50 mg) Oral q 6 hours PRN Allergies: No Known Allergies. Review of Systems: Review of Systems is not available for this patient. Vital Signs: Performed on May 13, 2021 14:48 Height - 63 in Weight - 134. lbs (HIGH) BSA - 1.63 sq.m BMI - 23.74 Temperature - 98.5 F Pulse - 73 /min Respiration - 18 /min BP - 120/64 mm(hg) O2 Sat - 98 % Pain - 0 Fatigue - 0 Performance Status: 0 - Fully active, able to carry on all predisease activities without restrictions. (ECOG) Physical Examination: ENMT - No mouth sores, no thrush, no jaundice, status post tracheostomy, Respiratory - Poor air entry otherwise clear, Cardiovascular - Regular rate and rhythm of heart , Abdomen - Soft, bowel sounds present, Extremities - No visible edema. Lab/Imaging: Most recent lab results are not available for this patient. Impression: Squamous cell carcinoma, invasive, poorly differentiated per flexible laryngoscopy guided biopsy done on April 28, 2021, PD-L1 expression CPS less than 1. CT scan of the neck done on April 21, 2021 showed large left supraglottic ngl and hypopharyngeal neoplasm with probable involvement of left false and probably true cords. Sclerotic changes in the left arytenoid and appropriate cord cartilages just possible tumor involvement. Few enlarged left cervical lymph node, possibly metastatic. CT PET scan done on May 09, 2021 showed 2.2 x 2.8 cm with SUV of 21.9 mass in the left larynx, status post tracheostomy, with modest activity in the subcentimeter left jugulodigastric level 3 lymph node with SUV of 2.7 may be reactive but malignancy is not excluded clinical stage T2 or 3,N1a History of smoking over 50 years, quit recently Status post tracheostomy Plan: Discussed with patient regarding his disease status, based on CT PET scan patient has localized laryngeal carcinoma T2 or T3 with left jugulodigastric lymph node involvement,N1a, and CT PET scan shows no distant mets, his lab work-up done during recent hospitalization on April 21, 2021 showed serum creatinine was 0.67 Based on NCCN guidelines, we will consider organ preservation approach with combined chemoradiation with high-dose cisplatin 100 mg per metered square day 1, day 22 and day 43 concurrent with radiation therapy. Case was discussed with radiation oncology briefly and patient is scheduled see radiation therapy on coming Tuesday., All the side effect possible benefits associated with high-dose cisplatin including but not limited to nausea vomiting, hair loss, bone marrow suppression, nephro/ototoxicity were mentioned, further teaching will done by chemotherapy nurse We will obtain approval from his insurance prior to the treatment and then patient will return to clinic 1 week after chemoradiation is initiated with CBC and CMP Signed By: Laura Plascencia M.D. <<Signature on File>>
== END 2021-05-13 13:55 | disposition home or self-care (01) ==
LOC: ONCMED 13:58
PROVIDERS: PCP Nurse Practitioner Family; Referring Provider Specialist; Visit Provider Internal Medicine Hematology & Oncology
DX: C32.1 Malignant neoplasm of supraglottis (principal); Z87.891 Personal history of nicotine dependence; Z93.0 Tracheostomy status; Z79.899 Other long term (current) drug therapy
CPT/HCPCS: 99205

== ENCOUNTER 2021-05-15 06:16 | Outpatient (CLI) | payer MEDICARE, SELFPAY ==
--- NOTE | 2021-05-15 09:20 | N.ONRAD NP_ITS ---
Radiation Oncology Consultation Patient Name: Cristobal Delatorre Date of : 1955 Date of Service: 05/15/2021 Attending Physician: Jerry Eaton M.D. Cristobal Delatorre was seen in consultation this morning at the request of Palmira Plascencia M.D. for consideration of head and neck radiotherapy for the management of a recently diagnosed supraglottic laryngeal cancer. He was referred to Carlos A Jacobsen M.D. for evaluation of hoarseness. A flexible laryngoscopy identified a mass in the supraglottic larynx partially obscuring the left arytenoid. The right vocal cord was mobile but the left vocal cord was not visualized. A CT scan of the neck ordered April 21, 2021 demonstrated a large left vallecular mass extending to the left vocal cord with partial effacement of the left piriform sinus measuring 4 cm x 2 cm x 1.5 cm. The lesion abuts the left hyoid bone and medial margin of the left thyroid cartilage associated with bony dehiscence of the thyroid cartilage. Lymphadenopathy was noted within the left level IIA lymph node station (measuring 2.2 cm x 1.5 cm x 1.3 cm and 1.3 cm x by 2.1 cm x 1.1 cm). A microdirect laryngoscopy with tracheotomy was performed on April 28, 2021. Operative findings confirmed an exophytic mass extending from the laryngeal surface of the epiglottis to the left true vocal cord. The tongue base, vallecula, piriform sinuses were uninvolved. A biopsy from the epiglottic mass (pathology report personally reviewed in [facility]) diagnosed a poorly differentiated squamous cell carcinoma. The patient's postoperative convalescence was complicated by sepsis. No source of infection was identified but he responded to antibiotic therapy (IV Zosyn and vancomycin). He was discharged on postoperative day 8. A PET CT (independently visualized in [facility]) obtained on May 09, 2021 confirmed the laryngeal mass with a maximum SUV of 21.9 and a subcentimeter left III lymph node (SUV 2.7). There was no evidence for distant metastatic disease. The patient was evaluated for consideration of head and neck radiotherapy. I discussed with Mr. Delatorre the AJCC clinical stage III (T3N1) supraglottic laryngeal cancer and the National Comprehensive Cancer Network Guidelines endorsing concurrent chemoradiation. I also reviewed the classic [facility] Laryngeal Cancer Study Group Trial that established induction chemotherapy with definitive radiotherapy was effective in laryngeal preservation and the RTOG 91???11 study that randomized patients with locally advanced laryngeal cancer to RT alone, induction chemotherapy, or concurrent chemoradiotherapy that affirmed laryngectomy free survival was significantly improved in the concurrent chemoradiotherapy arm. He will have a pre-radiotherapy dental evaluation and I have requested PEG tube placement to be scheduled prior to implementing therapy. I will also order baseline labs. I would recommend a seven week course of radiotherapy. A CT scan with contrast for radiotherapy planning scan in the treatment position will be acquired and co-registered to the staging PET CT scan to identify the gross tumor volumes (primary mass and hypermetabolic lymph nodes). The potential toxicities of head and neck radiotherapy were reviewed. He has verbalized understanding would like to proceed as recommended. The patient's medical treatment plan has been discussed with Palmira Plascencia M.D. Signed by: Dr. Jerry Eaton 05/15/2021 9:20:09 AM
[2021-05-15 10:06] LABS: Basophils # 0.1 10^3/uL (0.0-0.1); Basophils % 0.6 %; Eosinophils # 0.1 10^3/uL (0.0-0.8); Eosinophils % 0.7 %; Hematocrit 31.4 % (42.0-52.0); Lymphocytes # 2.4 10^3/uL (0.8-4.8); Lymphocytes % 22.3 %; Mean Corpuscular HGB Conc 31.8 g/dL (30.0-36.0); Mean Corpuscular Hemoglobin 26.7 pg (28.0-34.0); Mean Corpuscular Volume 83.7 fL (80-94); Mean Platelet Volume 10.1 fL (7.4-10.4); Monocytes # 0.7 10^3/uL (0.2-0.9); Monocytes % 6.4 %; Neutrophils % 69.6 %; Nucleated Red Blood Cells % 0 %; Platelet Count 393 10^3/cmm (130-400); Red Blood Count 3.75 10^6/uL (4.1-5.3); Red Cell Distribution Width 14.1 % (12.1-15.1); White Blood Count 10.8 10^3/uL (4.0-10.0)
[2021-05-15 10:38] LABS: Alanine Aminotransferase 15 U/L (0-41); Albumin Level 3.7 g/dL (3.5-5.2); Alkaline Phosphatase 131 IU/L (40-130); Anion Gap 16.8 (5-19); Aspartate Amino Transferase 14 U/L (0-40); Blood Urea Nitrogen 13 mg/dL (8-23); Carbon Dioxide 21 mmol/L (22-29); Chloride 107 mmol/L (98-107); Glomerular Filtration Rate 134.8 mL/min (90-130); Glucose 77 mg/dL (65-115); Osmolality Calculated 291 mOsm/kg (285-295); Potassium 3.8 mmol/L (3.5-5.1); Sodium 141 mmol/L (136-145); Total Bilirubin 0.3 mg/dL (0.15-1.2); Total Protein 6.7 g/dL (6.6-8.7)
== END 2021-05-15 06:17 | disposition home or self-care (01) ==
PROVIDERS: PCP Nurse Practitioner Family; Visit Provider Radiology Radiation Oncology
DX: C32.1 Malignant neoplasm of supraglottis (principal); R59.0 Localized enlarged lymph nodes; Z79.899 Other long term (current) drug therapy
CPT/HCPCS: 36415; 80053; 85025; 99205

== ENCOUNTER → 2021-05-28 15:23 | Outpatient (BNVA) | payer MEDICARE, SELFPAY | PROVIDERS: PCP Nurse Practitioner Family; Referring Provider Radiology Radiation Oncology; Visit Provider Surgery | DX: C32.9 Malignant neoplasm of larynx, unspecified (principal); Z11.52 Encounter for screening for COVID-19 | CPT/HCPCS: 87635 ==

== ENCOUNTER → 2021-05-29 15:48 | Outpatient (BNVA) | payer MEDICARE, SELFPAY | PROVIDERS: PCP Nurse Practitioner Family; Referring Provider Radiology Radiation Oncology; Visit Provider Surgery | DX: C32.9 Malignant neoplasm of larynx, unspecified (principal); Z20.822 Contact with and (suspected) exposure to COVID-19 | CPT/HCPCS: 87635 ==

== ENCOUNTER 2021-06-02 11:34 | Day surgery (SDC) | payer MEDICARE, SELFPAY ==
[2021-06-01 17:20] VITALS: BMI 23.9
[2021-06-02 11:59] VITALS: BP 149/69; PULSE 66; RESP 18; TEMP 36.9; O2SAT 100
[2021-06-02] MEDS: sodium chloride 0.9% 1,000 ML 30 ML IV (12:06)
--- NOTE | 2021-06-02 12:25 | W.PM.OPSUD ---
Surgery/Procedure H&P Update DATE OF PROCEDURE: June 02, 2021 DATE H&P PERFORMED: 05/28/21 H&P UPDATE INFORMATION: I have reviewed H&P completed within last 30 days, I have examined patient prior to procedure and No changes to prior documentation PREOP DIAGNOSIS: Laryngeal cancer PRIMARY INDICATION FOR PROCEDURE: The same PLANNED PROCEDURE: Operation Date: 06/02/21 13:15 Proposed Procedures p ENDOSCOPIC GASTROSTOMY TUBE PLACEMENT, POSS OPEN 61869 C32.9(Not Applicable) - Vinay Winter MD
--- NOTE | 2021-06-02 12:31 | ANES.PREANE2 ---
Pre-Anesthetic Assessment Pre-Anesthetic Assessment: Height/Weight: Height 1.6 m Weight 61.235 kg Temp Pulse Resp BP Pulse Ox 98.4 F 66 18 149/69 100 06/02/21 11:59 06/02/21 11:59 06/02/21 11:59 06/02/21 11:59 06/02/21 11:59 Preop Diagnosis: Laryngeal cancer Proposed Procedure: Operation Date: 06/02/21 13:15 Proposed Procedures p ENDOSCOPIC GASTROSTOMY TUBE PLACEMENT, POSS OPEN 95225 C32.9(Not Applicable) - Vinay Winter MD Was Beta Fawn taken within 24 hours: N/A Was Clonidine taken within 24 hours: N/A Last intake: Intake Last Liquid Date 06/01/21 Last Liquid Time 18:00 Last Solid Date 06/01/21 Last Solid Time 18:00 Social: Social History: No alcohol and No tobacco Exam: Pre-Anes Outpt Exam: alert, oriented x 3, clear to auscultation bilaterally and regular rate & rhythm Airway: Submandibular: WNL Cervical ROM: WNL MP: 2 Dentition: Chipped Additional comments: Trach (throat CA) CV/HEM: CV/HEM: HTN Anesthetic Plan: ASA status: 3 Anesthesia: General Risk of > 500 ml blood loss (7ml/kg in children): No Meds/Allergies Current Medications: Current Medications Generic Name Dose Route Start Last Admin Trade Name Freq PRN Reason Stop Dose Admin Sodium Chloride 1,000 mls @ 30 ml s/hr 06/02/21 12:00 06/02/21 12:06 Sodium Chloride 0.9% IV 06/03/21 11:59 30 mls/hr .Q24H MANDIE Administration PFSH Anesthesia PFSH: Medical History Laryngitis Stomach ulcer Surgical History H/O removal of cyst Family History Other Family history non-contributory Social History Smoking and tobacco status: never smoked Data Anesthesia Cardiac Studies: No Data to Display
--- NOTE | 2021-06-02 13:38 | P.OP_ITS ---
Operative Report Date of procedure: June 02, 2021 Pre-op Diagnosis: Laryngeal cancer Post-op diagnosis: same Post-op Diagnosis: Normal-looking esophagus and stomach Procedure Done: Endoscopic guided gastrostomy feeding tube placement Implants: PEG tube 20 [place] Surgeon: Vinay Winter Employee Communications Manager: technical documentation specialistcarmenza Sahni and surgical instrument technician Keron Circulating nurse Crystal from GI Anesthesia: General (Endotracheal intubation via previous tracheotomy) Estimated blood loss (mL): 20 Condition: stable Disposition: same day Brief History: History of laryngeal cancer requiring PEG tube placement Procedure: Patient was identified in the holding area, was taken to the OR placed first in supine position, timeout was done verifying the patient's name, date of , and procedure, all were in agreement. The tracheotomy was replaced by endotracheal tube by the anesthesia provider IV fentanyl was infused by the URINALYSIS TECHNICIAN, patient was placed in supine position after a bite block was placed in her mouth, started by introducing the EGD via the mouth under direct visualization, the patient was continuously monitored via residential monitor, I was able to assess the esophagus stomach with no significant findings. I was able to identify a good light reflex through the anterior abdominal wall, corresponding to appropriate indentation of the examining finger. At this point prep and drape of the anterior abdominal wall was done under the usual sterile technique, sterile gowns and gloves were used, lidocaine was infiltrated at the site of the needle insertion, my assistant professor held onto the EGD, under direct visualization a needle with the sheath was inserted by me that come with the PEG kit, once the needle and catheter were inserted into the inflated stomach, a needle was taken out, and through the catheter the blue loop wire introduced through the catheter, and via the working channel of the EGD(there was some oozing at the site of the stick that was controlled by the Bovie cauterization), the retrieval device was inserted under direct visualization, the blue loop was caught by the retrieval device, at this point the scope was taken out and a firm regional director of finance was continued to be applied onto the blue loop wire, the blue loop was then released and the PEG tube was tightened to it outside the patient's mouth, and with the remaining of the blue loop wire was Outside the abdominal wall, I was able to pull the PEG down after lubricating it all the way to the stomach, and have it placed in a good position at the level of 4 cm at the skin.Hemostasis was completely secured at this point. The EGD was reintroduced by me, there was no evidence of bleeding, good spinning of the PEG tube was witnessed.The scope was then retrieved. The scope was retrieved under direct visualization and gas was deflated,no biopsies were obtained at that point.The PEG tube base and clamp were applied and the PEG tube was connected to gravity and abdominal binder was placed. Patient tolerated the procedure well and was taken to the recovery area I was present for the whole entire procedure
[2021-06-02 13:41] VITALS: BP 169/84; PULSE 80; RESP 16; TEMP 36.4; O2SAT 96
[2021-06-02 13:45] VITALS: BP 163/83; PULSE 79; RESP 15; O2SAT 98
[2021-06-02 13:50] VITALS: BP 163/79; PULSE 74; RESP 18; O2SAT 94
[2021-06-02 13:55] VITALS: BP 174/82; PULSE 81; RESP 14; TEMP 36.6; O2SAT 95
[2021-06-02 14:25] VITALS: BP 178/86; PULSE 73; RESP 18; TEMP 36.6; O2SAT 96
--- NOTE | 2021-06-02 15:41 | ANE.PACU2 ---
Inpatient post-anesthesia follow up: Airway intact: Yes Vital signs: Temperature 97.9 F Pulse Rate 73 Respiratory Rate 18 Blood Pressure 178/86 Pulse Oximetry 96 Oxygen Delivery Me thod Room Air Oxygen Flow Rate Fraction of Inspir ed Oxygen Hydration adequate: Yes Nausea and vomiting: No Pain level: 2 Mental status: Baseline
== END 2021-06-02 14:45 | disposition home or self-care (01) ==
PROVIDERS: PCP Nurse Practitioner Family; Visit Provider Surgery
DX: C32.9 Malignant neoplasm of larynx, unspecified (principal); I10 Essential (primary) hypertension
CPT/HCPCS: 43246; J2250; J3010; J7030

== ENCOUNTER 2021-07-23 12:43 | Outpatient (CLI) | payer MEDICARE, SELFPAY ==
[2021-07-23 14:22] LABS: Basophils # 0.1 10^3/uL (0.0-0.1); Basophils % 0.7 %; Eosinophils # 0.1 10^3/uL (0.0-0.8); Eosinophils % 0.5 %; Hematocrit 27.6 % (42.0-52.0); Hemoglobin 8.3 g/dL (11.7-16.6); Lymphocytes # 2.4 10^3/uL (0.8-4.8); Lymphocytes % 22.4 %; Mean Corpuscular HGB Conc 30.1 g/dL (30.0-36.0); Mean Corpuscular Hemoglobin 25.5 pg (28.0-34.0); Mean Corpuscular Volume 84.9 fl (80-94); Monocytes # 0.7 10^3/uL (0.2-0.9); Monocytes % 6.4 %; Neutrophils # 7.45 10^3/uL (1.8-7.7); Neutrophils % 69.6 %; Nucleated Red Blood Cells % 0 %; Platelet Count 483 10^3/cmm (130-400); Red Blood Count 3.25 10^6/uL (4.1-5.3); Red Cell Distribution Width 17.9 % (12.1-15.1); White Blood Count 10.7 10^3/uL (4.0-10.0)
[2021-07-23 15:00] LABS: Alanine Aminotransferase 13 U/L (0-41); Albumin Level 3.5 g/dL (3.5-5.2); Alkaline Phosphatase 134 IU/L (40-130); Aspartate Amino Transferase 16 U/L (0-40); Blood Urea Nitrogen 12 mg/dL (8-23); Calcium 9.5 mg/dL (8.5-10.5); Carbon Dioxide 26 mmol/L (22-29); Chloride 107 mmol/L (98-107); Globulin 3.3 g/dL (1.3-4.6); Glomerular Filtration Rate 215.2 mL/min (90-130); Glucose 75 mg/dL (65-115); Osmolality Calculated 292 mOsm/kg (285-295); Sodium 142 mmol/L (136-145); Total Bilirubin 0.2 mg/dL (0.15-1.2); Total Protein 6.8 g/dL (6.6-8.7)
[2021-07-23 15:03] LABS: Anion Gap 13.4 (5-19); Potassium 4.4 mmol/L (3.5-5.1)
== END 2021-07-23 12:44 | disposition home or self-care (01) ==
PROVIDERS: PCP Nurse Practitioner Family; Visit Provider Radiology Radiation Oncology
DX: C32.8 Malignant neoplasm of overlapping sites of larynx (principal)
CPT/HCPCS: 36415; 80053; 85025

== ENCOUNTER 2021-08-05 07:01 | Outpatient (RCR) | payer MEDICARE, SELFPAY ==
--- NOTE | 2021-08-05 | CT_ITS ---
Radiation Therapy Planning CT images; total exam DLP: 827.25 mGy-cm MTDD
== END 2021-08-06 23:59 | disposition home or self-care (01) ==
LOC: ONCMED 07:01
PROVIDERS: PCP Nurse Practitioner Family; Visit Provider Radiology Radiation Oncology
DX: Z51.0 Encounter for antineoplastic radiation therapy (principal); C32.8 Malignant neoplasm of overlapping sites of larynx; Z79.899 Other long term (current) drug therapy
CPT/HCPCS: 77334; 77470; Q9967

== ENCOUNTER 2021-09-04 06:19 | Outpatient (RCR) | payer MEDICARE, SELFPAY ==
--- NOTE | 2021-08-07 12:08 | ONC FU_ITS ---
Dr. Plascencia follow up note Patient: Cristobal Delatorre Unit #: [id number]: 1955 Dicatated By: Laura Plascencia M.D.Date of Visit:Aug 07, 2021 Onc Med Follow-up/Prog Note History of Present Illness: Mr. Cristobal Delatorre, is a 66-year-old gentleman with a several month history of hoarseness of voice and also complaining of painful lump in left upper neck, no hemoptysis or hematemesis, no night sweats, no significant weight loss, was referred to ENT for evaluation, underwent flexible laryngoscope on April 20, 2021 which confirmed left laryngeal mass with partial obstructed, but stable air with, right vocal cord is mobile, patient underwent CT scan of the neck on April 21, 2021 which confirmed large left supraglottic Laryngeal and hypopharyngeal neoplasm with probable involvement of left false and possibly true cords. Sclerotic changes in the left arytenoid and upper cricoid cartilage suggest possible tumor involvement. A few enlarged left cervical lymph nodes possible metastatic., Mild diffuse thickening of uvula., Biopsy was obtained on April 28, 2021 which confirmed squamous cell carcinoma, invasive, poorly differentiated involving epiglottic mass. CT PET scan was done on May 09, 2021 which showed 2.2 x 2.8 cm with SUV of 21.9 mass and left-sided larynx with narrowing of trachea at the level of hyoid bone. There is a modest activity in subcentimeter left jugulodigastric level 3 lymph node with SUV up to 2.7 could be reactive but malignancy is not excluded. Patient underwent preventive tracheostomy, tolerated procedure well and now here for evaluation regarding further treatment. Patient denies any aspirations, denies any hematemesis or hemoptysis, denies any dysphagia, denies any shortness of breath or wheezing, denies any jaundice denies any new bony pains. Patient has history of heavy smoking about 50 years, quit recently. Came for follow-up, denies any specific complaints, no fever chills, no nausea or vomiting, no diarrhea constipation patient has permanent tracheostomy and also has feeding tube. Patient was recently seen by radiation and now ready to start combined chemoradiation with cisplatin. His treatment was delayed because of dental issues recently undergone extraction Medications: amLODIPine Besylate 1 Tablet (of 10 mg) Oral daily, Cefdinir 1 Capsule (of 300 mg) Oral b.i.d., Flonase 1 [place](s) (of 50 mcg/act) Suspension Nasal daily, HYDROcodone-Acetaminophen 1 Tablet (of 5-325 mg) Oral q 5 hours PRN, Lisinopril 1 Tablet (of 10 mg) Oral daily, traMADol HCl 1 Tablet (of 50 mg) Oral q 6 hours PRN Allergies: No Known Allergies. Review of Systems: Review of Systems is not available for this patient. Vital Signs: Performed on Aug 07, 2021 11:22 Height - 63.00 in Weight - 133.6 lbs (HIGH) BSA - 1.63 sq.m BMI - 23.67 Temperature - 98.3 F (LOW) Pulse - 74 /min Respiration - 20 /min BP - 170/71 mm(hg) (HIGH) O2 Sat - 98 % Pain - 5 Fatigue - 2 Performance Status: 1 - No physically strenuous activity, but ambulatory and able to carry out light or sedentary work (e.g. office work, light house work). (ECOG) Physical Examination: ENMT - No mouth sores, no thrush, trach site clean no bleeding, Respiratory - Lungs are clear to auscultation, Cardiovascular - Regular rate and rhythm of heart, Abdomen - Soft, bowel sounds present, feeding site clean, Extremities - No visible edema. Lab/Imaging: Most recent lab results are not available for this patient. Impression: Squamous cell carcinoma, invasive, poorly differentiated per flexible laryngoscopy guided biopsy done on April 28, 2021, PD-L1 expression CPS less than 1. CT scan of the neck done on April 21, 2021 showed large left supraglottic ngl and hypopharyngeal neoplasm with probable involvement of left false and probably true cords. Sclerotic changes in the left arytenoid and appropriate cord cartilages just possible tumor involvement. Few enlarged left cervical lymph node, possibly metastatic. CT PET scan done on May 09, 2021 showed 2.2 x 2.8 cm with SUV of 21.9 mass in the left larynx, status post tracheostomy, with modest activity in the subcentimeter left jugulodigastric level 3 lymph node with SUV of 2.7 may be reactive but malignancy is not excluded clinical stage T2 or 3,N1a History of smoking over 50 years, quit recently Status post tracheostomy Plan: Discussed with patient regarding his labs from July 23, 2021 which shows white blood count 10.7 hemoglobin 8.3 hematocrit 27.6 platelets 403,000 CMP within normal limits Clinically, patient doing reasonably well, since he was seen last time, there is a decline in his performance status, we will consider changing his cisplatin dose to weekly cisplatin concurrent with radiation therapy and start of high-dose cisplatin which was initially considered. We will monitor closely and he will return to clinic 1 week after chemoradiation with weekly cisplatin is initiated with CBC CMP As far as anemia is concerned, patient has normocytic normochromic anemia, appears multifactorial but will do anemia work-up which include iron studies B12 folic acid ferritin then plan accordingly and consider blood transfusion if hemoglobin drop below 8 g. Signed By: Laura Plascencia M.D. <<Signature on File>>
[2021-08-10] MEDS: sodium chloride 0.9% 250 ML 75 ML IV (08:30)
[2021-08-10 09:12] LABS: Basophils # 0.1 10^3/uL (0.0-0.1); Basophils % 0.5 %; Eosinophils # 0.1 10^3/uL (0.0-0.8); Eosinophils % 0.8 %; Hematocrit 31.5 % (42.0-52.0); Hemoglobin 9.4 g/dL (11.7-16.6); Lymphocytes # 2.8 10^3/uL (0.8-4.8); Lymphocytes % 20.9 %; Mean Corpuscular HGB Conc 29.8 g/dL (30.0-36.0); Mean Corpuscular Hemoglobin 25.5 pg (28.0-34.0); Mean Corpuscular Volume 85.4 fl (80-94); Mean Platelet Volume 9.8 fL (7.4-10.4); Monocytes % 7.1 %; Neutrophils # 9.51 10^3/uL (1.8-7.7); Nucleated Red Blood Cells % 0 %; Platelet Count 427 10^3/cmm (130-400); Red Blood Count 3.69 10^6/uL (4.1-5.3); Red Cell Distribution Width 17.4 % (12.1-15.1); White Blood Count 13.6 10^3/uL (4.0-10.0)
[2021-08-10 09:47] LABS: Alanine Aminotransferase 12 U/L (0-41); Albumin Level 3.7 g/dL (3.5-5.2); Alkaline Phosphatase 144 IU/L (40-130); Anion Gap 15.6 (5-19); Aspartate Amino Transferase 15 U/L (0-40); Blood Urea Nitrogen 14 mg/dL (8-23); Calcium 10.1 mg/dL (8.5-10.5); Carbon Dioxide 24 mmol/L (22-29); Chloride 104 mmol/L (98-107); Ferritin 173 ng/mL (30-400); Globulin 3.6 g/dL (1.3-4.6); Glomerular Filtration Rate 166.4 mL/min (90-130); Glucose 87 mg/dL (65-115); Iron 18 ug/dL (59-158); Osmolality Calculated 288 mOsm/kg (285-295); Percent Saturation 7.2 % (20-50); Potassium 4.6 mmol/L (3.5-5.1); Sodium 139 mmol/L (136-145); Total Bilirubin 0.2 mg/dL (0.15-1.2); Total Iron Binding Capacity 250 mcg/dl; Total Protein 7.3 g/dL (6.6-8.7); Unsaturated Iron Binding 232 ug/dL (112-347)
[2021-08-10 10:07] LABS: Vitamin B12 421 pg/mL (232-1245)
[2021-08-10] MEDS: palonosetron 0.25 mg/5 mL SDV IV (10:38)
[2021-08-10] MEDS: fosaprepitant 150 MG in sodium chloride 0.9% 150 ML 300 MG IV (10:40)
[2021-08-10 11:48] LABS: Folate Level 14.7 ng/mL (4.5-32.2)
[2021-08-10] MEDS: FUROsemide 10 mg/mL SDV 2mL 20 MG IV (12:15)
[2021-08-10] MEDS: potassium chloride 20 MEQ in sodium chloride 0.9% 500 ML 255 MEQ IV (12:20)
[2021-08-10] MEDS: ferric carboxy (IVPB) 750 MG in sodium chloride 0.9% (100 ml) 100 ML 460 MG IV (14:00)
--- NOTE | 2021-08-11 14:41 | ONCRAD TMN_ITS ---
Radiation Oncology Treatment Management Note Patient Name: Cristobal Delatorre Date of : 1955 Date of Service: 08/11/2021 Attending Physician: Jerry Eaton M.D. 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 The patient has received 4 Gy of a prescribed 50 [place] with an intensity modulated radiotherapy plan utilizing a step and shoot treatment technique. An additional 20 Gy will be delivered to the gross tumor volume and high risk cervical lymph nodes subsequent to the initial treatment plan. He has been prescribed cisplatin (30 mg/m2) weekly during radiotherapy. Upon review of systems, he denied any complaints related to radiotherapy. On physical examination, the patient weighed 130 lbs. His temperature was 97.4 ???F with a blood pressure of 156/72 mmHg. His pulse was 82 bpm and the respiratory rate was 20. No erythema within the treatment mims. Continue head and neck radiotherapy as prescribed. Signed by: Dr. Jerry Eaton 08/11/2021 2:39:55 PM
[2021-08-17 08:42] LABS: Basophils # 0.1 10^3/uL (0.0-0.1); Basophils % 0.4 %; Eosinophils # 0.1 10^3/uL (0.0-0.8); Eosinophils % 0.3 %; Hematocrit 29.7 % (42.0-52.0); Hemoglobin 9.1 g/dL (11.7-16.6); Lymphocytes # 1.7 10^3/uL (0.8-4.8); Lymphocytes % 11.2 %; Mean Corpuscular HGB Conc 30.6 g/dL (30.0-36.0); Mean Corpuscular Hemoglobin 25.8 pg (28.0-34.0); Mean Corpuscular Volume 84.1 fl (80-94); Mean Platelet Volume 10.2 fL (7.4-10.4); Monocytes # 1.3 10^3/uL (0.2-0.9); Monocytes % 8.4 %; Neutrophils # 11.73 10^3/uL (1.8-7.7); Neutrophils % 78.5 %; Nucleated Red Blood Cells % 0 %; Platelet Count 414 10^3/cmm (130-400); Red Blood Count 3.53 10^6/uL (4.1-5.3); Red Cell Distribution Width 17.1 % (12.1-15.1)
[2021-08-17] MEDS: ferric carboxy (IVPB) 750 MG in sodium chloride 0.9% (100 ml) 100 ML 460 MG IV (08:50)
[2021-08-17] MEDS: sodium chloride 0.9% 250 ML 75 ML IV (08:50)
[2021-08-17 09:17] LABS: Alanine Aminotransferase 17 U/L (0-41); Albumin Level 3.5 g/dL (3.5-5.2); Alkaline Phosphatase 165 IU/L (40-130); Anion Gap 17.1 (5-19); Aspartate Amino Transferase 16 U/L (0-40); Blood Urea Nitrogen 16 mg/dL (8-23); Calcium 9.5 mg/dL (8.5-10.5); Carbon Dioxide 22 mmol/L (22-29); Chloride 99 mmol/L (98-107); Globulin 3.7 g/dL (1.3-4.6); Glomerular Filtration Rate 166.4 mL/min (90-130); Glucose 81 mg/dL (65-115); Osmolality Calculated 278 mOsm/kg (285-295); Potassium 4.1 mmol/L (3.5-5.1); Sodium 134 mmol/L (136-145); Total Bilirubin 0.3 mg/dL (0.15-1.2); Total Protein 7.2 g/dL (6.6-8.7)
--- NOTE | 2021-08-17 11:01 | ONC FU_ITS ---
Dr. Plascencia follow up note Patient: Cristobal Delatorre Unit #: [id number]: 1955 Dicatated By: Laura Plascencia M.D.Date of Visit:Aug 17, 2021 Onc Med Follow-up/Prog Note History of Present Illness: Mr. Cristobal Delatorre, is a 66-year-old gentleman with a several month history of hoarseness of voice and also complaining of painful lump in left upper neck, no hemoptysis or hematemesis, no night sweats, no significant weight loss, was referred to ENT for evaluation, underwent flexible laryngoscope on April 20, 2021 which confirmed left laryngeal mass with partial obstructed, but stable air with, right vocal cord is mobile, patient underwent CT scan of the neck on April 21, 2021 which confirmed large left supraglottic Laryngeal and hypopharyngeal neoplasm with probable involvement of left false and possibly true cords. Sclerotic changes in the left arytenoid and upper cricoid cartilage suggest possible tumor involvement. A few enlarged left cervical lymph nodes possible metastatic., Mild diffuse thickening of uvula., Biopsy was obtained on April 28, 2021 which confirmed squamous cell carcinoma, invasive, poorly differentiated involving epiglottic mass. CT PET scan was done on May 09, 2021 which showed 2.2 x 2.8 cm with SUV of 21.9 mass and left-sided larynx with narrowing of trachea at the level of hyoid bone. There is a modest activity in subcentimeter left jugulodigastric level 3 lymph node with SUV up to 2.7 could be reactive but malignancy is not excluded. Patient underwent preventive tracheostomy, tolerated procedure well and now here for evaluation regarding further treatment. Patient denies any aspirations, denies any hematemesis or hemoptysis, denies any dysphagia, denies any shortness of breath or wheezing, denies any jaundice denies any new bony pains. Patient has history of heavy smoking about 50 years, quit recently. Started on combined chemoradiation with weekly cisplatin on 08/10/2021 Came for follow-up, denies any specific complaint except mild sore throat since started on combined chemoradiation, no hemoptysis or hematemesis, no nausea or vomiting, no diarrhea or constipation, no fever chills, no discharge or bleeding around trach site, tolerating combined chemoradiation with weekly cisplatin well Medications: amLODIPine Besylate 1 Tablet (of 10 mg) Oral daily, Cefdinir 1 Capsule (of 300 mg) Oral b.i.d., Flonase 1 [place](s) (of 50 mcg/act) Suspension Nasal daily, HYDROcodone-Acetaminophen 1 Tablet (of 5-325 mg) Oral q 5 hours PRN, Lisinopril 1 Tablet (of 10 mg) Oral daily, traMADol HCl 1 Tablet (of 50 mg) Oral q 6 hours PRN Allergies: No Known Allergies. Review of Systems: Review of Systems is not available for this patient. Vital Signs: Performed on Aug 17, 2021 09:45 Height - 63.00 in Weight - 129 lbs (LOW) BSA - 1.61 sq.m BMI - 22.85 Temperature - 98.6 F Pulse - 71 /min Respiration - 18 /min BP - 159/53 mm(hg) (HIGH) O2 Sat - 99 % Pain - 6 Fatigue - 2 Performance Status: 1 - No physically strenuous activity, but ambulatory and able to carry out light or sedentary work (e.g. office work, light house work). (ECOG) Physical Examination: ENMT - No mouth sores, no thrush, trach site is clear, Respiratory - Lungs are clear to auscultation, Cardiovascular - Regular rate and rhythm of heart, Abdomen - Soft, bowel sounds present, Extremities - No visible edema. Lab/Imaging: Most recent lab results are not available for this patient. Impression: Squamous cell carcinoma, invasive, poorly differentiated per flexible laryngoscopy guided biopsy done on April 28, 2021, PD-L1 expression CPS less than 1. CT scan of the neck done on April 21, 2021 showed large left supraglottic ngl and hypopharyngeal neoplasm with probable involvement of left false and probably true cords. Sclerotic changes in the left arytenoid and appropriate cord cartilages just possible tumor involvement. Few enlarged left cervical lymph node, possibly metastatic. CT PET scan done on May 09, 2021 showed 2.2 x 2.8 cm with SUV of 21.9 mass in the left larynx, status post tracheostomy, with modest activity in the subcentimeter left jugulodigastric level 3 lymph node with SUV of 2.7 may be reactive but malignancy is not excluded clinical stage T2 or 3,N1a History of smoking over 50 years, quit recently Status post tracheostomy Plan: Discussed with patient regarding his labs white blood count 15 hemoglobin 9.1 hematocrit 29.7 platelets 414,000 CMP within normal limits except sodium 134 Clinically, patient is doing reasonably well, tolerating combined chemoradiation with modified dose weekly cisplatin concurrent with radiation therapy, well, will proceed with the next weekly dose of cisplatin today and then he will return to clinic in 1 week with CBC CMP, if reasonable we will continue with weekly cisplatin. Due to his overall performance status, his cisplatin dose was modified to minimize toxicity, and to maintain schedule As far as iron deficiency anemia is concerned patient received parenteral iron Injectafer last week and he will receive another dose today, his anemia could be multifactorial, if with normalization of iron stores, still has persistent anemia, may consider bone marrow evaluation. Signed By: Laura Plascencia M.D. <<Signature on File>>
[2021-08-17] MEDS: palonosetron 0.25 mg/5 mL SDV IVP (11:17)
[2021-08-17] MEDS: FUROsemide 10 mg/mL SDV 2mL 20 MG IV (12:55)
[2021-08-17] MEDS: potassium chloride 20 MEQ in sodium chloride 0.9% 500 ML 250 MEQ IV (13:00)
--- NOTE | 2021-08-18 14:43 | ONCRAD TMN_ITS ---
Radiation Oncology Treatment Management Note Patient Name: Cristobal Delatorre Date of : 1955 Date of Service: 08/18/2021 Attending Physician: Jerry Eaton M.D. 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 The patient has received 14 Gy of a prescribed 50 [place] with an intensity modulated radiotherapy plan utilizing a step and shoot treatment technique. An additional 20 Gy will be delivered to the gross tumor volume and high risk cervical lymph nodes subsequent to the initial treatment plan. He has been prescribed cisplatin (30 mg/m2) weekly during radiotherapy. Upon review of systems, he denied any complaints related to radiotherapy. On physical examination, the patient weighed 129 lbs. His temperature was 97.5 ???F with a blood pressure of 149/72 mmHg. His pulse was 68 bpm and the respiratory rate was 20. No erythema within the treatment mims. Continue head and neck radiotherapy as planned. Signed by: Dr. Jerry Eaton 08/18/2021 2:41:55 PM
[2021-08-25 14:06] LABS: Basophils % 0.5 %; Eosinophils # 0.1 10^3/uL (0.0-0.8); Hematocrit 27.3 % (42.0-52.0); Hemoglobin 8.2 g/dL (11.7-16.6); Lymphocytes # 0.8 10^3/uL (0.8-4.8); Lymphocytes % 10.3 %; Mean Corpuscular Hemoglobin 25.9 pg (28.0-34.0); Mean Corpuscular Volume 86.1 fl (80-94); Mean Platelet Volume 9.7 fL (7.4-10.4); Monocytes # 0.7 10^3/uL (0.2-0.9); Monocytes % 9.2 %; Neutrophils # 6.12 10^3/uL (1.8-7.7); Nucleated Red Blood Cells % 0 %; Platelet Count 289 10^3/cmm (130-400); Red Blood Count 3.17 10^6/uL (4.1-5.3); Red Cell Distribution Width 16.9 % (12.1-15.1); White Blood Count 7.9 10^3/uL (4.0-10.0)
--- NOTE | 2021-08-25 14:34 | ONCRAD TMN_ITS ---
Radiation Oncology Treatment Management Note Patient Name: Cristobal Delatorre Date of : 1955 Date of Service: 08/25/2021 Attending Physician: Jerry Eaton M.D. 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 The patient has received 24 Gy of a prescribed 50 [place] with an intensity modulated radiotherapy plan utilizing a step and shoot treatment technique. An additional 20 Gy will be delivered to the gross tumor volume and high risk cervical lymph nodes subsequent to the initial treatment plan. He has been prescribed cisplatin (30 mg/m2) weekly during radiotherapy. Upon review of systems, he denied any complaints related to radiotherapy. On physical examination, the patient weighed 133 lbs. His temperature was 97.2 ???F and the blood pressure was 134/64 mmHg. His pulse was 68 bpm and the respiratory rate was 20. No erythema within the treatment mims. PEG tube site does not have signs of infection. Continue head and neck radiotherapy as prescribed. Signed by: Dr. Jerry Eaton 08/25/2021 2:33:14 PM
[2021-08-25 14:41] LABS: Alanine Aminotransferase 16 U/L (0-41); Albumin Level 3.3 g/dL (3.5-5.2); Alkaline Phosphatase 153 IU/L (40-130); Anion Gap 13.1 (5-19); Aspartate Amino Transferase 12 U/L (0-40); Blood Urea Nitrogen 13 mg/dL (8-23); Calcium 8.7 mg/dL (8.5-10.5); Carbon Dioxide 25 mmol/L (22-29); Chloride 104 mmol/L (98-107); Globulin 3.2 g/dL (1.3-4.6); Glomerular Filtration Rate 215.2 mL/min (90-130); Glucose 76 mg/dL (65-115); Osmolality Calculated 285 mOsm/kg (285-295); Potassium 4.1 mmol/L (3.5-5.1); Sodium 138 mmol/L (136-145); Total Bilirubin 0.2 mg/dL (0.15-1.2); Total Protein 6.5 g/dL (6.6-8.7)
[2021-08-26] MEDS: sodium chloride 0.9% 250 ML 75 ML IV (08:40)
[2021-08-26] MEDS: palonosetron 0.25 mg/5 mL SDV IV (10:42)
[2021-08-26] MEDS: fosaprepitant 150 MG in sodium chloride 0.9% 150 ML 300 MG IV (10:55)
[2021-08-26] MEDS: FUROsemide 10 mg/mL SDV 2mL 20 MG IV (13:05)
[2021-08-26] MEDS: potassium chloride 20 MEQ in sodium chloride 0.9% 500 ML 255 MEQ IV (13:10)
--- NOTE | 2021-09-01 14:16 | ONCRAD TMN_ITS ---
Radiation Oncology Treatment Management Note Patient Name: Cristobal Delatorre Date of : 1955 Date of Service: 09/01/2021 Attending Physician: Jerry Eaton M.D. 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 The patient has received 34 Gy of a prescribed 50 [place] with an intensity modulated radiotherapy plan utilizing a step and shoot treatment technique. An additional 20 Gy will be delivered to the gross tumor volume and high risk cervical lymph nodes subsequent to the initial treatment plan. He has been prescribed cisplatin (30 mg/m2) weekly during radiotherapy. Upon review of systems, he denied any complaints related to radiotherapy. On physical examination, the patient weighed 135 lbs. His temperature was 97.2 ???F and the blood pressure was 154/61 mmHg. His pulse was 60 bpm and the respiratory rate was 20. No erythema within the treatment mims. PEG tube site does not have signs of infection. Continue head and neck radiotherapy as planned. Signed by: Dr. Jerry Eaton 09/01/2021 2:14:56 PM
[2021-09-01 14:36] LABS: Alanine Aminotransferase 16 U/L (0-41); Albumin Level 3.3 g/dL (3.5-5.2); Alkaline Phosphatase 161 IU/L (40-130); Anion Gap 13.2 (5-19); Aspartate Amino Transferase 12 U/L (0-40); Blood Urea Nitrogen 14 mg/dL (8-23); Calcium 8.5 mg/dL (8.5-10.5); Carbon Dioxide 26 mmol/L (22-29); Chloride 103 mmol/L (98-107); Globulin 2.9 g/dL (1.3-4.6); Glomerular Filtration Rate 215.2 mL/min (90-130); Glucose 88 mg/dL (65-115); Osmolality Calculated 288 mOsm/kg (285-295); Potassium 3.2 mmol/L (3.5-5.1); Sodium 139 mmol/L (136-145); Total Bilirubin 0.2 mg/dL (0.15-1.2); Total Protein 6.2 g/dL (6.6-8.7)
[2021-09-01 17:07] LABS: Basophils % 0.7 %; Eosinophils # 0.1 10^3/uL (0.0-0.8); Eosinophils % 1.4 %; Hemoglobin 8.6 g/dL (11.7-16.6); Lymphocytes # 0.7 10^3/uL (0.8-4.8); Lymphocytes % 12.1 %; Mean Corpuscular HGB Conc 29.7 g/dL (30.0-36.0); Mean Corpuscular Hemoglobin 26.1 pg (28.0-34.0); Mean Corpuscular Volume 87.9 fl (80-94); Monocytes # 0.6 10^3/uL (0.2-0.9); Monocytes % 10.8 %; Neutrophils # 4.07 10^3/uL (1.8-7.7); Neutrophils % 73.7 %; Nucleated Red Blood Cells % 0 %; Platelet Count 180 10^3/cmm (130-400); White Blood Count 5.5 10^3/uL (4.0-10.0)
--- NOTE | 2021-09-02 01:00 | ONC FU_ITS ---
[facility] Patient Note Patient: Cristobal Delatorre Unit #: [id number]: 1955 Dictated By: Tawanda SimmonsDate of Visit: Aug 26, 2021 Onc MED Follow-Up/Prog Note Chief Complaint: Laryngeal carcinoma History of Present Illness: Mr. Delatorre is a 66-year-old gentleman with a several month history of hoarseness of voice. He was also complaining of painful lump in left upper neck. He had no hemoptysis or hematemesis, no night sweats, no significant weight loss. He was referred to ENT for evaluation and underwent flexible laryngoscope on April 20, 2021. This confirmed left laryngeal mass with partial obstructed, but stable air with, right vocal cord was mobile. Mr Delatorre underwent CT scan of the neck on April 21, 2021 which confirmed large left supraglottic Laryngeal and hypopharyngeal neoplasm with probable involvement of left false and possibly true cords. Sclerotic changes in the left arytenoid and upper cricoid cartilage suggest possible tumor involvement. A few enlarged left cervical lymph nodes possible metastatic; Mild diffuse thickening of uvula. A biopsy was obtained on April 28, 2021 which confirmed squamous cell carcinoma, invasive, poorly differentiated involving epiglottic mass. CT PET scan was done on May 09, 2021 which showed 2.2 x 2.8 cm with SUV of 21.9 mass and left-sided larynx with narrowing of trachea at the level of hyoid bone. There is a modest activity in subcentimeter left jugulodigastric level 3 lymph node with SUV up to 2.7 could be reactive but malignancy is not excluded. Mr Delatorre underwent preventive tracheostomy, tolerated that procedure well. He was referred to Dr Plascencia for evaluation regarding further treatment. Patient has history of heavy smoking about 50 years, quit recently. Dr Plascencia recommended combined chemoradiation with weekly cisplatin. He began his first treatment on 08/10/2021. He has now completed 2 weeks of cisplatin and is tolerating it well. We did visit with him yesterday as he was having excessive mucus through his trach we did recommend scopolamine but he states that overall it improved that afternoon and he did not seek any further treatment as he thought it was better and it has improved today as well. He denies any new concerns. He states he has not had any fever or chills. He denies any nausea or vomiting. He states his breathing is about the same possibly some better. He is swallowing some but does have discomfort with that but states it is no worse than what has been over the last week or so. He states his bowels and bladder are normal for him. He has fatigue but is retrying to resume normal activities. He states he just wears out but is improving some overall. He denies any hearing changes or neuropathy. His ECOG is 1. Past Medical History: Hypertension Past Surgical History: Tracheotomy in 2020 Allergies: No Known Allergies. Medications: amLODIPine Besylate 1 Tablet (of 10 mg) Oral daily Cefdinir 1 Capsule (of 300 mg) Oral b.i.d. Flonase 1 [place](s) (of 50 mcg/act) Suspension Nasal daily HYDROcodone-Acetaminophen 1 Tablet (of 5-325 mg) Oral q 5 hours PRN Lisinopril 1 Tablet (of 10 mg) Oral daily traMADol HCl 1 Tablet (of 50 mg) Oral q 6 hours PRN Family History: Mr. Delatorre's mother at age 87. Mr. Delatorre's father at age 93. Mr. Delatorre has 1 brother who is alive. He has 1 sister who is alive. Social History: Mr. Delatorre is single. Mr. Delatorre quit smoking less than one year ago but had smoked 1.0 pack/day for 50 years. He is a former drinker. He has indicated exposure to the following products: cigarettes. Review Of Symptoms: <See Above> Vital Signs: Performed on Aug 26, 2021 10:05 Height - 63.00 in Weight - 134.2 lbs (HIGH) BSA - 1.63 sq.m BMI - 23.77 Temperature - 97.0 F (LOW) Pulse - 70 /min Respiration - 18 /min BP - 152/62 mm(hg) (HIGH) O2 Sat - 98 % Pain - 3 Fatigue - 2,1 - No physically strenuous activity, but ambulatory and able to carry out light or sedentary work (e.g. office work, light house work). (ECOG) Physical Examination: Constitutional Alert, oriented, no acute distress. Skin pink, warm and dry. Head Normocephalic; atraumatic. Eyes Conjunctivae and sclerae are clear and without icterus. Pupils are reactive and equal. ENMT No oral exudates, ulcers, masses, thrush or mucositis. Oropharynx clear. Tongue normal. Neck Supple without masses or thyromegaly. No jugular venous distension. Tracheostomy site is unremarkable. Hematologic/Lymphatic No petechiae or purpura. No tender or palpable lymph nodes in the cervical or supraclavicular areas. Respiratory Lungs are clear to auscultation without rhonchi or wheezing. Cardiovascular Regular rate and rhythm of heart without murmurs,clicks, gallops or rubs. Abdomen Non-tender, non-distended, no masses or ascites. Good bowel sounds noted in all quads. No guarding or rebound tenderness. No pulsatile masses. Back/Spine Non-tender to palpation. Extremities No visible deformities, no cyanosis, clubbing or edema. Musculoskeletal No tenderness or swelling, normal range of motion without obvious weakness. Integumentary No rashes or lesions. Neurologic No sensory or motor deficits, normal cerebellar function, normal gait. Psychiatric Alert and oriented times three. Coherent speech. Verbalizes understanding of our discussions today. Laboratory: Impression: Squamous cell carcinoma, invasive, poorly differentiated per flexible laryngoscopy guided biopsy done on April 28, 2021, PD-L1 expression CPS less than 1. CT scan of the neck done on April 21, 2021 showed large left supraglottic ngl and hypopharyngeal neoplasm with probable involvement of left false and probably true cords. Sclerotic changes in the left arytenoid and appropriate cord cartilages just possible tumor involvement. Few enlarged left cervical lymph node, possibly metastatic. CT PET scan done on May 09, 2021 showed 2.2 x 2.8 cm with SUV of 21.9 mass in the left larynx, status post tracheostomy, with modest activity in the subcentimeter left jugulodigastric level 3 lymph node with SUV of 2.7 may be reactive but malignancy is not excluded clinical stage T2 or 3,N1a History of smoking over 50 years, quit recently Status post tracheostomy Plan/Problems Addressed at this Visit: Laryngeal cancer as per impression above. He is undergoing concurrent chemoradiation with weekly cisplatin. He has completed 2 full weeks at this time. A. Proceed with week 3 cisplatin. B. Labs from 08/25/2021 reviewed in detail and discussed with Mr. Delatorre and a copy was given to him. WBC 7.9, hemoglobin 8.2, platelets 289,000 ANC is 6120. Potassium 4.1 random glucose was 76 his creatinine is 0.4 his LFTs are normal his alk phos is improved at 153. His weight is stable today 134.2 which is actually up from 129 on August 18, 2021. He did have iron studies on August 10, 2021 which reported iron level of 18 his iron saturation was 7.2 and his ferritin was 173. His B12 was normal at 421. He has received 2 doses of Injectafer with the last one on August 17, 2021. C. Plan to see him back in 1 week with CBC CMP and consideration of week 4 of weekly cisplatin. D. Mr. Delatorre was encouraged to let us know in the interim if questions or problems arise. E. We did discuss him using scopolamine patch and possibly pills if needed for the excessive saliva/secretions from his trach he states overall that has improved and he does not want any more medication at this time. He is aware that he can try it if it gets worse prior to his appointment next week. Signed By: Tawanda Simmons-, [facility] Laura Plascencia MD <<Signature on File>>
[2021-09-02] MEDS: fosaprepitant 150 MG in sodium chloride 0.9% 150 ML 300 MG IV (12:03)
[2021-09-02] MEDS: sodium chloride 0.9% 250 ML 75 ML IV (12:03)
[2021-09-02] MEDS: palonosetron 0.25 mg/5 mL SDV IV (12:38)
[2021-09-02] MEDS: FUROsemide 10 mg/mL SDV 2mL 20 MG IV (14:05)
[2021-09-02] MEDS: potassium chloride 20 MEQ in sodium chloride 0.9% 500 ML 500 MEQ IV (14:08)
[2021-09-02 14:31] LABS: Magnesium 1.5 mg/dL (1.7-2.3)
--- NOTE | 2021-09-19 08:36 | ONC FU_ITS ---
[facility] Patient Note Patient: Cristobal Delatorre Unit #: [id number]: 1955 Dictated By: Tawanda SimmonsDate of Visit: Sep 02, 2021 Onc MED Follow-Up/Prog Note Chief Complaint: Laryngeal carcinoma History of Present Illness: Mr. Delatorre is a 66-year-old gentleman with a several month history of hoarseness of voice. He was also complaining of painful lump in left upper neck. He had no hemoptysis or hematemesis, no night sweats, no significant weight loss. He was referred to ENT for evaluation and underwent flexible laryngoscope on April 20, 2021. This confirmed left laryngeal mass with partial obstructed, but stable air with, right vocal cord was mobile. Mr Delatorre underwent CT scan of the neck on April 21, 2021 which confirmed large left supraglottic Laryngeal and hypopharyngeal neoplasm with probable involvement of left false and possibly true cords. Sclerotic changes in the left arytenoid and upper cricoid cartilage suggest possible tumor involvement. A few enlarged left cervical lymph nodes possible metastatic; Mild diffuse thickening of uvula. A biopsy was obtained on April 28, 2021 which confirmed squamous cell carcinoma, invasive, poorly differentiated involving epiglottic mass. CT PET scan was done on May 09, 2021 which showed 2.2 x 2.8 cm with SUV of 21.9 mass and left-sided larynx with narrowing of trachea at the level of hyoid bone. There is a modest activity in subcentimeter left jugulodigastric level 3 lymph node with SUV up to 2.7 could be reactive but malignancy is not excluded. Mr Delatorre underwent preventive tracheostomy, tolerated that procedure well. He was referred to Dr Plascencia for evaluation regarding further treatment. Patient has history of heavy smoking about 50 years, quit recently. Dr Plascencia recommended combined chemoradiation with weekly cisplatin. He began his first treatment on 08/10/2021. He has now completed 3 weeks of cisplatin and is tolerating it well. Mr Delatorre is here today for followup and consideration of week 4 treatment. He denies any new concerns. He states he has not had any fever or chills. He denies any nausea or vomiting. He states his breathing is about the same possibly some better. He does have some swallowing improvement but does have discomfort with that but states it is no worse than what has been over the last week or so. He states his bowels and bladder are normal for him. He has fatigue but is gradually increasing his activities to resume normal activities. He states he just wears out but is improving some overall. He denies any hearing changes or neuropathy. His ECOG is 1. Past Medical History: Hypertension Past Surgical History: Tracheotomy in 2020 Allergies: No Known Allergies. Medications: amLODIPine Besylate 1 Tablet (of 10 mg) Oral daily Cefdinir 1 Capsule (of 300 mg) Oral b.i.d. Flonase 1 [place](s) (of 50 mcg/act) Suspension Nasal daily HYDROcodone-Acetaminophen 1 Tablet (of 5-325 mg) Oral q 5 hours PRN Lisinopril 1 Tablet (of 10 mg) Oral daily traMADol HCl 1 Tablet (of 50 mg) Oral q 6 hours PRN Family History: Mr. Delatorre's mother at age 87. Mr. Delatorre's father at age 93. Mr. Delatorre has 1 brother who is alive. He has 1 sister who is alive. Social History: Mr. Delatorre is single. Mr. Delatorre quit smoking less than one year ago but had smoked 1.0 pack/day for 50 years. He is a former drinker. He has indicated exposure to the following products: cigarettes. Review Of Symptoms: <See Above> Vital Signs: Performed on Sep 02, 2021 09:23 Height - 63.00 in Weight - 133.8 lbs (LOW) BSA - 1.63 sq.m BMI - 23.70 Temperature - 97.6 F (LOW) Pulse - 68 /min Respiration - 18 /min BP - 163/66 mm(hg) (HIGH) O2 Sat - 98 % Pain - 4 Fatigue - 2,1 - No physically strenuous activity, but ambulatory and able to carry out light or sedentary work (e.g. office work, light house work). (ECOG) Physical Examination: Constitutional Alert, oriented, no acute distress. Skin pink, warm and dry. Head Normocephalic; atraumatic. Eyes Conjunctivae and sclerae are clear and without icterus. Pupils are reactive and equal. ENMT No oral exudates, ulcers, masses, thrush or mucositis. Oropharynx clear. Tongue normal. Neck Supple without masses or thyromegaly. No jugular venous distension. Tracheostomy site is unremarkable. Hematologic/Lymphatic No petechiae or purpura. No tender or palpable lymph nodes in the cervical or supraclavicular areas. Respiratory Lungs are clear to auscultation without rhonchi or wheezing. Cardiovascular Regular rate and rhythm of heart without murmurs,clicks, gallops or rubs. Abdomen Non-tender, non-distended, no masses or ascites. Good bowel sounds noted in all quads. No guarding or rebound tenderness. No pulsatile masses. Back/Spine Non-tender to palpation. Extremities No visible deformities, no cyanosis, clubbing or edema. Musculoskeletal No tenderness or swelling, normal range of motion without obvious weakness. Integumentary No rashes or lesions. Neurologic No sensory or motor deficits, normal cerebellar function, normal gait. Psychiatric Alert and oriented times three. Coherent speech. Verbalizes understanding of our discussions today. Laboratory: Impression: Squamous cell carcinoma, invasive, poorly differentiated per flexible laryngoscopy guided biopsy done on April 28, 2021, PD-L1 expression CPS less than 1. CT scan of the neck done on April 21, 2021 showed large left supraglottic ngl and hypopharyngeal neoplasm with probable involvement of left false and probably true cords. Sclerotic changes in the left arytenoid and appropriate cord cartilages just possible tumor involvement. Few enlarged left cervical lymph node, possibly metastatic. CT PET scan done on May 09, 2021 showed 2.2 x 2.8 cm with SUV of 21.9 mass in the left larynx, status post tracheostomy, with modest activity in the subcentimeter left jugulodigastric level 3 lymph node with SUV of 2.7 may be reactive but malignancy is not excluded clinical stage T2 or 3,N1a History of smoking over 50 years, quit recently Status post tracheostomy Plan/Problems Addressed at this Visit: Laryngeal cancer as per impression above. He is undergoing concurrent chemoradiation with weekly cisplatin. He has completed 2 full weeks at this time. A. Proceed with week 4 cisplatin. B. Labs from 09/01/2021 were reviewed in detail and discussed with Mr. Delatorre and a copy was given to him. WBC is 5.5, hemoglobin 8.6, platelets 180,000, ANC is 4070. Potassium 3.2 creatinine 0.4 alk phos stable at 161 LFTs otherwise are normal magnesium is 1.5. Weight is stable at 133.8. He did have iron studies on August 10, 2021 which reported iron level of 18 his iron saturation was 7.2 and his ferritin was 173. His B12 was normal at 421. He has received 2 doses of Injectafer with the last one on August 17, 2021. C. Plan to see him back in 1 week with CBC CMP and consideration of week 5 of weekly cisplatin. D. Mr. Delatorre was encouraged to let us know in the interim if questions or problems arise. E. We did discuss him using scopolamine patch and possibly pills if needed for the excessive saliva/secretions from his trach he states overall that has improved and he does not want any more medication at this time. He is aware that he can try it if it gets worse. F. He was encouraged to take his potassium supplements. Signed By: Tawanda Simmons-, [facility] Laura Plascencia MD <<Signature on File>>
== END 2021-09-06 23:59 | disposition home or self-care (01) ==
LOC: ONCMED 06:19
PROVIDERS: Internal Medicine Hematology & Oncology; Absent Provider Radiology Radiation Oncology; PCP Nurse Practitioner Family; Visit Provider Radiology Radiation Oncology
DX: Z51.0 Encounter for antineoplastic radiation therapy (principal); Z51.11 Encounter for antineoplastic chemotherapy; C32.8 Malignant neoplasm of overlapping sites of larynx; R59.0 Localized enlarged lymph nodes; F17.211 Nicotine dependence, cigarettes, in remission; Z79.899 Other long term (current) drug therapy
CPT/HCPCS: 36415; 77300; 77301; 77336; 77338; 77386; 80053; 82607; 82728; 82746; 83540; 83550; 83735; 85025; 96366; 96367; 96375; 96413; 99214; 99215; J1100; J1439; J1453; J1940; J2469; J3475; J3480; J7030; J7040; J7050; J9060

== ENCOUNTER 2021-09-24 09:40 | Outpatient (CLI) | payer MEDICARE, SELFPAY ==
--- NOTE | 2021-09-24 | CT_ITS ---
WS: [id number] CT CHEST WITH INTRAVENOUS CONTRAST HISTORY: LARYNGEAL CA, RESTAGING TECHNIQUE: Contiguous 5 mm axial imaging performed on the thorax. Coronal and sagittal reformats are submitted. All CT scans at [facility] use at least one of these dose optimization techniques: automated exposure control; mA and/or kV adjustment per patient size (includes targeted exams where dose is matched to clinical indication); or iterative reconstruction. CONTRAST: Omnipaque 300; 95 mL IV. DLP: 639.14 mGycm COMPARISON: 04/30/2021 Lungs and central airway: Severe emphysema with pulmonary hyperexpansion. No pulmonary mass, nodule o r pneumonia. Pleura: Normal. No pleural effusion. Heart and pericardium: Mildly enlarged heart. No pericardial effusion. Mediastinum and martha: No mediastinum or hilar adenopathy. Vessels: Mild atherosclerosis aorta. Variable density within the pulmonary artery is probably due to contrast injection. This study was not targeted to exclude pulmonary emboli. Chest wall and lower neck: Tracheostomy remains in good position. Above the tracheostomy within the r egion of the larynx there is increased circumferential soft tissue thickening which is consistent wit h known laryngeal cancer. Upper abdomen: Visualized liver is normal. No adrenal mass. PEG tube is noted in good position. Osseous structures: Severe increase in thoracic kyphosis. Sclerotic T5 vertebral body with 50% compre ssion fracture. Additional anterior wedging of T6, T7, T8. The T5 sclerotic vertebral body is new sin ce 04/30/2021. CT/CT chest w con* [id number] IMPRESSION: 1. Severe emphysema. No pulmonary metastatic nodules within the lungs. 2. No mediastinal adenopathy. 3. New sclerotic T5 compression fracture by 50%. New since 04/30/2021. Metastat ic lesion is not excluded but this could be an acute compression fracture. 4. The additional compression deformities from T6 through T8 are stable. 5. Tracheostomy remains in good position. Again noted is a circumferential sof t tissue mass at the level of the larynx with significant obstruction of the ai rway.
[2021-09-24] MEDS: iohexol 300 mg/mL 100 mL Btl IV (10:11)
== END 2021-09-24 09:41 | disposition home or self-care (01) ==
PROVIDERS: PCP Nurse Practitioner Family; Visit Provider Radiology Radiation Oncology
DX: C32.8 Malignant neoplasm of overlapping sites of larynx (principal); J43.9 Emphysema, unspecified; S22.059A Unspecified fracture of T5-T6 vertebra, initial encounter for closed fracture; X58.XXXA Exposure to other specified factors, initial encounter; Z93.0 Tracheostomy status
CPT/HCPCS: 71260; Q9967

== ENCOUNTER 2021-09-24 10:00 | Outpatient (RCR) | payer MEDICARE, SELFPAY ==
--- NOTE | 2021-09-08 14:51 | ONCRAD TMN_ITS ---
Radiation Oncology Weekly Treatment Management Patient: Juan Ramon Casper MR#: [id number] : 1955> Attending Physician: Dr. Garland Ballard Date of Service: 09/08/2021 Referring Physician(s) : Dr. Carlos A Almazan Diagnosis: C32.8 - Malignant neoplasm of overlapping sites of larynx, Diagnosed 05/13/2021 (Active) Stage III, T3, N1, M0 Radiotherapy to date: Course: Supragottis 2020, Treatment Site: Supraglottis Ca ??? Initial, Ref. ID: [id number], Energy: 6X, Dose/Fx (cGy): 200, #Fx: 22 / 25, Dose Correction (cGy): 0, Total Dose (cGy): 4,400, Start Date: 08/10/2021, Elapsed Days: 29 Reason for visit: The patient is being seen today as part of their regularly scheduled weekly on treatment visits to assess for acute toxicities from radiotherapy. Review of Systems: Eating all food orally. Gargling with disinfectant that is well tolerated. Still has some taste. No use of PEG. Weight up today 1.6 pounds. Not very active at home. Quit smoking at Dx. No interest in any smoking. Vital Signs: Performed on 09/08/2021 2:26 PM BMI - 23.985 kg/m2 (high), Height - 63.00 in, Weight - 135.4 lbs, Temperature - 96.9 f, Pulse - 65 /min, Respiration - 20 /min, O2 Sat - 100 %, Pain - 3 and BP - 159/ 75 mm(hg)(high/). Physical Exam: Mild bilateral neck erythema. Phone call from Dr. Almazan yesterday. [employer] showed no visible tumor and no palpable adenopathy. Plans on FU in 6 weeks and FU PET/CT in 3 months. Imaging: Radiation therapy imaging related to accurate target localization (i.e. KV, MV and CBCT) was reviewed. Appropriate changes, if any, were made to ensure treatment accuracy. Plan: Good tolerance of RT. Continue as planned. Signed by: Dr. Garland Ballard 09/08/2021 2:49:03 PM
[2021-09-08 15:02] LABS: Basophils % 0.3 %; Eosinophils # 0.1 10^3/uL (0.0-0.8); Hematocrit 29.4 % (42.0-52.0); Lymphocytes # 0.5 10^3/uL (0.8-4.8); Lymphocytes % 8.5 %; Mean Corpuscular HGB Conc 30.6 g/dL (30.0-36.0); Mean Corpuscular Volume 88.3 fl (80-94); Mean Platelet Volume 9.5 fL (7.4-10.4); Monocytes # 0.5 10^3/uL (0.2-0.9); Monocytes % 7.7 %; Neutrophils # 5.13 10^3/uL (1.8-7.7); Neutrophils % 81.7 %; Nucleated Red Blood Cells % 0 %; Platelet Count 154 10^3/cmm (130-400); Red Blood Count 3.33 10^6/uL (4.1-5.3); Red Cell Distribution Width 18.8 % (12.1-15.1); White Blood Count 6.3 10^3/uL (4.0-10.0)
[2021-09-08 15:12] LABS: Alanine Aminotransferase 15 U/L (0-41); Albumin Level 3.6 g/dL (3.5-5.2); Alkaline Phosphatase 170 IU/L (40-130); Anion Gap 12.2 (5-19); Aspartate Amino Transferase 15 U/L (0-40); Blood Urea Nitrogen 10 mg/dL (8-23); Calcium 8.3 mg/dL (8.5-10.5); Carbon Dioxide 27 mmol/L (22-29); Chloride 102 mmol/L (98-107); Globulin 2.5 g/dL (1.3-4.6); Glomerular Filtration Rate 215.2 mL/min (90-130); Glucose 86 mg/dL (65-115); Osmolality Calculated 282 mOsm/kg (285-295); Potassium 4.2 mmol/L (3.5-5.1); Sodium 137 mmol/L (136-145); Total Bilirubin 0.2 mg/dL (0.15-1.2); Total Protein 6.1 g/dL (6.6-8.7)
[2021-09-09] MEDS: sodium chloride 0.9% 250 ML 30 ML IV (09:15)
[2021-09-09] MEDS: palonosetron 0.25 mg/5 mL SDV IV (11:08)
[2021-09-09] MEDS: fosaprepitant 150 MG in sodium chloride 0.9% 150 ML 300 MG IV (11:10)
[2021-09-09] MEDS: FUROsemide 10 mg/mL SDV 2mL 20 MG IV (13:10)
[2021-09-09] MEDS: potassium chloride 20 MEQ in sodium chloride 0.9% 500 ML 500 MEQ IV (13:15)
--- NOTE | 2021-09-15 14:45 | ONCRAD TMN_ITS ---
Radiation Oncology Treatment Management Note Patient Name: Cristobal Delatorre Date of : 1955 Date of Service: 09/15/2021 Attending Physician: Jerry Eaton M.D. 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 The patient has received 54 Gy of a prescribed 70 Holt with an intensity modulated radiotherapy plan utilizing a step and shoot treatment technique. He has been prescribed cisplatin (30 mg/m2) weekly during radiotherapy. Upon review of systems, he reported skin discomfort. On physical examination, the patient weighed 132 lbs. His temperature was 97 ???F and the blood pressure was 154/61 mmHg. His pulse was 60 bpm and the respiratory rate was 20. A grade III dermatitis was present at the tracheostomy appliance. Continue head and neck radiotherapy as prescribed. Signed by: Dr. Jerry Eaton 09/15/2021 2:44:11 PM
[2021-09-15 15:23] LABS: Basophils % 0.7 %; Eosinophils % 1.3 %; Hematocrit 30.6 % (42.0-52.0); Hemoglobin 9.4 g/dL (11.7-16.6); Lymphocytes # 0.4 10^3/uL (0.8-4.8); Lymphocytes % 12.5 %; Mean Corpuscular HGB Conc 30.7 g/dL (30.0-36.0); Mean Corpuscular Hemoglobin 27.4 pg (28.0-34.0); Mean Corpuscular Volume 89.2 fl (80-94); Mean Platelet Volume 10.4 fL (7.4-10.4); Monocytes # 0.3 10^3/uL (0.2-0.9); Monocytes % 10.8 %; Neutrophils # 2.26 10^3/uL (1.8-7.7); Nucleated Red Blood Cells % 0 %; Platelet Count 171 10^3/cmm (130-400); Red Blood Count 3.43 10^6/uL (4.1-5.3); Red Cell Distribution Width 20.7 % (12.1-15.1); White Blood Count 3.1 10^3/uL (4.0-10.0)
[2021-09-15 16:09] LABS: Alanine Aminotransferase 11 U/L (0-41); Albumin Level 3.7 g/dL (3.5-5.2); Alkaline Phosphatase 169 IU/L (40-130); Blood Urea Nitrogen 11 mg/dL (8-23); Calcium 8.5 mg/dL (8.5-10.5); Carbon Dioxide 23 mmol/L (22-29); Chloride 101 mmol/L (98-107); Globulin 3.2 g/dL (1.3-4.6); Glomerular Filtration Rate 215.2 mL/min (90-130); Glucose 76 mg/dL (65-115); Osmolality Calculated 284 mOsm/kg (285-295); Sodium 138 mmol/L (136-145); Total Bilirubin 0.2 mg/dL (0.15-1.2); Total Protein 6.9 g/dL (6.6-8.7)
[2021-09-15 16:11] LABS: Aspartate Amino Transferase 19 U/L (0-40)
[2021-09-16] MEDS: sodium chloride 0.9% 250 ML 30 ML IV (09:05)
[2021-09-16] MEDS: palonosetron 0.25 mg/5 mL SDV IV (10:51)
[2021-09-16] MEDS: fosaprepitant 150 MG in sodium chloride 0.9% 150 ML 300 MG IV (10:53)
[2021-09-16] MEDS: FUROsemide 10 mg/mL SDV 2mL 20 MG IV (12:35)
[2021-09-16] MEDS: potassium chloride 20 MEQ in sodium chloride 0.9% 500 ML 255 MEQ IV (13:00)
--- NOTE | 2021-09-21 08:27 | CT_ITS ---
WS: [id number] Exam: CT neck w con* [id number] Date/Time of Exam: 09/21/2021 8:28 AM Reason For Exam: NEOPLASM OF OVERLAPPING SITES OF LARYNX DLP: 455.[address] scans at [facility] use at least one of these dose optimization techniques: automated e xposure control; mA and/or kV adjustment per patient size (includes targeted exams where dose is matc hed to clinical indication); or iterative reconstruction. Comparison with outside CT scan of the neck with contrast performed 04/21/2021. The neck is evaluated in the axial plane with sagittal and coronal reformatted images. IV contrast wa s administered. There is an ill-defined soft tissue mass identified in the region of the left piriform sinus that timmy sures 2.5 x 1.4 x 3.3 cm. Hardly any contrast enhancement is seen. The mass appears to be smaller anish n noted on the prior study. The parotid glands and submandibular glands are symmetrical side to side. No significant cervical lymphadenopathy seen. No lesions seen in the region of the tongue base. A tr acheostomy tube is in place appearing be in satisfactory location. The above-described lesion does ca use some airway narrowing at about the level of the hyoid bone. Regional bony structures are intact. Extensive calcification noted at the carotid bifurcations more advanced on the left. Extensive calcif ications of the cavernous internal carotid arteries. Advanced emphysematous changes seen in the upper lung zones. CT images of the skull base and brain we re unremarkable. Marked leftward deviation of the nasal septum. CT/CT neck w con* [id number] IMPRESSION: 1. 2.5 x 1.4 x 3.3 cm ill-defined soft tissue mass in the region of the left pi riform sinus. Hardly any contrast enhancement was noted. This does cause some m oderate airway narrowing. The mass is smaller than noted on the previous outsid e CT scan. 2. No significant cervical lymphadenopathy identified. 3. Advanced emphysematous changes. Marked atherosclerotic plaquing at the carot id bifurcations as well as the cavernous internal carotid arteries.
[2021-09-21] MEDS: iohexol 300 mg/mL 100 mL Btl IV (08:55)
--- NOTE | 2021-09-22 14:37 | N.ONRD TS_ITS ---
Radiation OncologyTreatment Summary Patient Name: Cristobal Delatorre Date of : 1955 Date of Service: 09/22/2021 Attending Physician: Jerry Eaton M.D. 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 Head and neck radiation therapy was delivered between the dates of August 10, 2021 through September 21, 2021. A dose of 62 Gy of a prescribed dose of 70 Gy was delivered in 31 fractions encompassing 43 elapsed days. The supraglottis and cervical lymph node regions were treated utilizing an intensity modulated radiotherapy plan with a step and shoot treatment technique. The plan required nine gantry angles (0???, 41???, 82???, 123???, 164???, 196???, 237???, 278???, and 319???) replicating an arc. The collimator rotations spanned 0??? to 348??? to minimize MLC excursion. The field sizes measured between 14.8 cm x 16.5 cm to 23.3 cm x 16 cm. The SSDs measured a minimum of 81.8 cm to a maximum of 96 cm. The ports delivered 267 MU, 248 MU, 392 MU, 246 MU, 246 MU, 220 MU, 265 MU, 329 MU, and 299 MU corresponding to the gantry angles described. Low energy photons were prescribed. The initial mims began on August 10, 2021 and continued through September 11, 2021. A prescribed dose of 50 Holt was administered 25 fractions over 33 elapsed days. The gross tumor volume and PET avid cervical lymph nodes were subsequently treated with an intensity modular radiotherapy plan with a step and shoot treatment technique. The plan required nine gantry angles (0???, 41???, 82???, 123???, 164???, 196???, 237???, 278???, and 319???) replicating an arc. The collimator rotations comprised 0??? to 348??? to minimize MLC excursion. The field sizes assessed between 14.4 cm x 16.8 cm to 22.9 cm x 16.5 cm. The SSDs measured a minimum of 81.8 cm to a maximum of 96 cm. The ports distributed 264 MU, 252 MU, 431 MU, 231 MU, 238 MU, 215 MU, 285 MU, 359 MU, and 258 MU corresponding to the gantry angles described. Low energy photons were prescribed. The reduced ports commenced on September 14, 2021 and concluded on September 21, 2021. An additional 12 Gy of a prescribed 20 Gy was allocated in 6 fractions over 8 elapsed days. All treatments were performed with the [employer] linear accelerator and an isocentric technique. A 2 mm tissue cigar brander was placed upon the biopsy proven skin lesion during treatment. The dose was calculated by Anisotropic Analytic Algorithm with the plan normalized to deliver 100% of the prescription dose to 95% of the planning target volume. He was prescribed cisplatin (30 mg/m2) weekly (August 10, 2021 through September 16, 2021) during radiotherapy under the supervision of Palmira Plascencia M.D. Signed by: Dr. Jerry Eaton 09/22/2021 2:36:01 PM
--- NOTE | 2021-09-24 15:40 | ONCRAD TMN_ITS ---
Radiation Oncology Treatment Management Note Patient Name: Cristobal Delatorre Date of : 1955 Date of Service: 09/22/2021 Attending Physician: Jerry Eaton M.D. 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 The patient has received 64 Gy of a prescribed 70 Holt with an intensity modulated radiotherapy plan utilizing a step and shoot treatment technique. He has been prescribed cisplatin (30 mg/m2) weekly during radiotherapy. Upon review of systems, he reported skin discomfort. On physical examination, the patient weighed 132 lbs. His temperature was 97 ???F and the blood pressure was 154/61 mmHg. His pulse was 60 bpm and the respiratory rate was 20. A grade III dermatitis was present at the tracheostomy appliance. Discontinue head and neck radiotherapy on account of dermatitis at the tracheostomy collar. Signed by: Dr. Jerry Eaton 09/24/2021 3:38:47 PM
== END 2021-10-06 23:59 | disposition home or self-care (01) ==
LOC: RADWPI 10:00
PROVIDERS: Absent Provider Radiology Radiation Oncology; PCP Nurse Practitioner Family; Visit Provider Internal Medicine Hematology & Oncology
DX: Z51.0 Encounter for antineoplastic radiation therapy (principal); C32.8 Malignant neoplasm of overlapping sites of larynx; L59.8 Other specified disorders of the skin and subcutaneous tissue related to radiation; Z93.0 Tracheostomy status
CPT/HCPCS: 36415; 70491; 71260; 77014; 77300; 77336; 77338; 77386; 77427; 80053; 85025; 96366; 96367; 96375; 96413; J1100; J1453; J1940; J2469; J3475; J3480; J7030; J7040; J7050; J9060; Q9967

== ENCOUNTER 2021-09-28 08:18 | Outpatient (CLI) | payer MEDICARE, SELFPAY | END 2021-09-28 08:19 | disposition home or self-care (01) | LOC: WOUND 08:19 | PROVIDERS: PCP Nurse Practitioner Family; Visit Provider Emergency Medicine | DX: I96 Gangrene, not elsewhere classified (principal); L59.8 Other specified disorders of the skin and subcutaneous tissue related to radiation; Y84.2 Radiological procedure and radiotherapy as the cause of abnormal reaction of the patient, or of later complication, without mention of misadventure at the time of the procedure; Y78.1 Therapeutic (nonsurgical) and rehabilitative radiological devices associated with adverse incidents; I10 Essential (primary) hypertension; Z87.891 Personal history of nicotine dependence | CPT/HCPCS: 11042; 11045; 87070; 87077; 87176; 87186; 87205; G0463 ==

== ENCOUNTER 2021-10-05 15:21 | Emergency (ER) | payer MEDICARE, SELFPAY ==
[2021-10-05 15:35] VITALS: BP 116/64; PULSE 79; RESP 16; TEMP 36.9; O2SAT 99; BMI 22.4
--- NOTE | 2021-10-05 15:41 | PC.NURSE ---
NOTIFIED LEANN MORAES CHARGE NURSE OF NEED ROOM SHE VERBALIZED UNDERSTANDING AND STATED SHE WOULD MAKE ONE AVAILABLE STONE.
--- NOTE | 2021-10-05 17:46 | W.ED.RECABL ---
Documented by User: Gary Crowder DO 10/06/21 07:45 HPI - Recheck/Abnormal Lab/Rx General: Chief Complaint: Recheck/Abnormal Lab/Rx Stated Complaint: WP IMAGING SENT OVER BLOOD CLOT IN LUNG Time Seen by Provider: 10/05/21 17:41 History of Present Illness: HPI narrative: 66-year-old male with a history of laryngeal cancer that was previously excised and treated has been treated with radiation. He had a CT of the chest done with IV contrast here and it was forwarded to [place] where he was getting further evaluation for more treatment. The radiologist evidently over read the test and called the PE on that study. Dr. Elizabeth had read the test here and made a notation in her report that there is a variable density within the pulmonary artery probably due to contrast injection and that this particular study was not oriented towards excluding a pulmonary emboli. Patient was informed by the clinic in [place] that he had a pulmonary emboli and directed to the emergency room. Not having any chest pain any shortness of breath he is not hypoxic. MD complaint: other (Abnormal CT chest) Initial visit for: other (CT chest) Symptoms since prior visit: no new symptoms Context: called for abnormal lab result Associated symptoms: none Review of Systems Const: Denies: fever(s), chills, body aches, change in appetite, fatigue or malaise ENMT: Denies: throat pain, ear or mastoid pain, nasal discharge or nasal congestion Card: Denies: chest pain, edema, dyspnea on exertion or orthopnea Resp: Denies: dyspnea, productive cough or non-productive cough GI: Denies: abdominal pain, nausea, vomiting, hematemesis, coffee ground emesis, diarrhea, constipation, bloating, hematochezia or melena : Denies: flank pain, dysuria, urinary frequency or urinary urgency PFSH ED PFSH: Medical History Laryngitis Stomach ulcer Surgical History H/O removal of cyst Family History Other Family history non-contributory Physical Exam Const: COMMON NORMALS: no acute distress GENERAL APPEARANCE: cooperative and comfortable ORIENTATION/CONSCIOUSNESS: Yes awake, Yes oriented to person, Yes oriented to place and Yes oriented to time HENMT: COMMON NORMALS: normocephalic, atraumatic and hearing grossly normal bilaterally HEAD & SCALP: normocephalic and atraumatic Neck/C-Spine: OTHER: Dressings on the neck due to radiation rubio these were not removed. Patient has a tracheotomy in place Resp: COMMON NORMALS: normal respiratory effort, No retractions, No use of accessory muscles and clear to auscultation bilaterally AUSCULTATION: clear to auscultation bilaterally Cardio: COMMON NORMALS: regular rate, regular rhythm and No murmurs present (Cardio) RATE: regular rate RHYTHM: regular rhythm GI: COMMON NORMALS: Soft to palpation and No hepatosplenomegaly present AUSCULTATION: Yes normoactive bowel sounds PALPATION: Yes Soft to palpation, No Tenderness to palpation present (GI), No Guarding due to palpation present (GI) and Yes No hepatosplenomegaly present Extremity: COMMON NORMALS: normal to inspection, capillary refill normal, no clubbing, cyanosis or edema, no calf tenderness and no pedal edema Neuro: SENSORIUM/ORIENTATION: Yes oriented to person, Yes oriented to place and Yes oriented to time Skin: COMMON NORMALS: no rashes or lesions noted GENERAL SKIN EXAM: no rashes or lesions noted Course Vital Signs: Vital signs: Vital Signs Temperature 98.4 F 10/05/21 15:35 Pulse Rate 76 10/05/21 20:18 Respiratory Rate 27 H 10/05/21 19:23 Blood Pressure 130/60 10/05/21 21:57 Pulse Oximetry 95 10/05/21 21:57 MDM - Recheck/Abnormal Lab/Rx MDM Narrative: Medical decision making narrative: Care turned over to Dr. Emanuel at change of see his note final diagnosis disposition Discharge Plan Discharge Patient Disposition: Left Against Medical Advice Clinical Impression: Pulmonary embolism Condition: Stable Prescriptions: New Eliquis 5 mg tablet 10 mg PO BID 7 Days Qty: 28 RF: 0 Eliquis 5 mg tablet 5 mg PO BID Qty: 30 RF: 0 No Action tramadol 50 mg Tablet 50 mg PO Q6H PRN (Reason: Pain) RF: 0 fluticasone propionate [Flonase Allergy Relief] 50 mcg/actuation [place],Suspension 1 spray INTRANASAL DAILY RF: 0 lisinopril 10 mg Tablet 10 mg PO DAILY Qty: 30 RF: 0 hydrocodone-acetaminophen 5-325 mg tablet 1 tab PO Q6H PRN (Reason: pain) Qty: 25 RF: 0 hydrocodone-acetaminophen 5-325 mg tablet 1 tab PO Q6H PRN (Reason: pain) Qty: 14 RF: 0 Discharge Orders: Discharge ED (Routine); Ordered 10/05/21 Ordered By: Negar Emanuel Referrals: Tonia Gonzales [Primary Care Provider] - 1-3 days Discharge Diet: Advance as tolerated Discharge Activity: Resume usual activity Patient Instructions: Pulmonary Embolism (ED) Coding Level of Care Code ED Corporate Security Manager for Chg Fwd Exam Detailed Documented by User: Negar Emanuel MD 10/05/21 21:38 HPI - Recheck/Abnormal Lab/Rx General: Chief Complaint: Recheck/Abnormal Lab/Rx Stated Complaint: WP IMAGING SENT OVER BLOOD CLOT IN LUNG Time Seen by Provider: 10/05/21 17:41 PFSH ED PFSH: Medical History Laryngitis Stomach ulcer Surgical History H/O removal of cyst Family History Other Family history non-contributory Course Vital Signs: Vital signs: Vital Signs Temperature 98.4 F 10/05/21 15:35 Pulse Rate 76 10/05/21 20:18 Respiratory Rate 27 H 10/05/21 19:23 Blood Pressure 130/60 10/05/21 21:57 Pulse Oximetry 95 10/05/21 21:57 MDM - Recheck/Abnormal Lab/Rx MDM Narrative: Medical decision making narrative: 66-year-old male presents here with a pulmonary embolism. After I did get the CT results back, and spoke to patient recommended admission and lab draws. He states he has no chest pain no shortness of breath he is ready to start Eliquis at home. I did inform him that he could get much worse I would really recommend admission he has decision made capacity decided to sign out AGAINST MEDICAL ADVICE will prescribe him Eliquis he is return if he has any symptoms he understands agrees to plan. Imaging Data^: CT Chest: Attestation: I personally reviewed and interpreted this imaging study as follows: Radiologist's impression: [address] [address] [address] Scan Report Signed with Addenda Patient: Cristobal Delatorre Unit #: [id number] : 1955 Age/Sex: 66 / M ADM Date: 10/05/21 Loc: ER Room/Bed: Attending Dr: Ordering Provider/Ordering MD: Gary Crowder DO Date of Service: 10/05/21 Procedure(s): CT angio chest PE protcl [id number] Accession Number(s): [id number] Report Number: [id number]/CT angio chest PE protcl [id number] THIS REPORT CONTAINS FINDINGS THAT MAY BE CRITICAL TO PATIENT CARE. Dr. Adelfo lim pt Cristobal Delatorre has received the report, has no questions or concerns, declined cc. 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 Radiation Dose CTDIVOL = (mGy): DLP = 527.07 (mGy-cm) Addendum Dictated By: Colleen Moss Addendum Signed By: Colleen Moss Signed Date/Time: 10/05/212121 Addendum Cosigned By: PROCEDURE INFORMATION: Exam: CTA Chest With Contrast Exam date and time: 10/05/2021 5:47 PM Age: 66 years old Clinical indication: Shortness of breath; Prior surgery; Surgery type: Trach, feeding tube; Additional info: Chest discomfort/dyspnea TECHNIQUE: Imaging protocol: Computed tomographic angiography of the chest with contrast. 3D rendering (Not supervised by radiologist): MIP and/or 3D reconstructed images were created by the technologist. Radiation optimization: All CT scans at this facility use at least one of these dose optimization techniques: automated exposure control; mA and/or kV adjustment per patient size (includes targeted exams where dose is matched to clinical indication); or iterative reconstruction. Contrast material: OMNI 350; Contrast volume: 65 ml; Contrast route: INTRAVENOUS (IV); COMPARISON: CT angio chest PE protcl [id number] 04/30/2021 12:55 PM RADIATION DOSE METRICS: Total DLP (mGy-cm): 527.07 FINDINGS: Tubes, catheters and devices: There is a gastrostomy tube in good position. Pulmonary arteries: The exam is positive for pulmonary embolus with filling defects in the right main and bilateral proximal lower lobe pulmonary artery branches. There is no saddle embolus. Aorta: Unremarkable. No aortic aneurysm. No aortic dissection. Trachea: There is a tracheostomy in good position. Lungs: There are severe emphysematous changes. There is subpleural atelectasis of the dependent portions of the lungs. There is no lobar consolidation. Pleural spaces: Unremarkable. No pneumothorax. No pleural effusion. Heart: No right heart strain. The heart is enlarged. Heart RV/LV ratio: The RV/LV ratio is 0.8. Lymph nodes: Unremarkable. No enlarged lymph nodes. Bones/joints: Osteopenia and moderate degenerative changes in the spine are noted. Kyphosis and multiple chronic compression fractures in the thoracic spine are noted. Soft tissues: Unremarkable. CT/CT angio chest PE protcl [id number] IMPRESSION: The exam is positive for pulmonary embolus with filling defects in the right main and bilateral proximal lower lobe pulmonary artery branches. Radiation Dose CTDIVOL = (mGy): DLP = 527.07 (mGy-cm) Dictated By: Colleen Moss Signed By: Colleen Moss Signed Date/Time: 10/05/212110 DD/ 46 Discharge Plan Discharge Patient Disposition: Left Against Medical Advice Clinical Impression: Pulmonary embolism Condition: Stable Prescriptions: New Eliquis 5 mg tablet 10 mg PO BID 7 Days Qty: 28 RF: 0 Eliquis 5 mg tablet 5 mg PO BID Qty: 30 RF: 0 No Action tramadol 50 mg Tablet 50 mg PO Q6H PRN (Reason: Pain) RF: 0 fluticasone propionate [Flonase Allergy Relief] 50 mcg/actuation [place],Suspension 1 spray INTRANASAL DAILY RF: 0 lisinopril 10 mg Tablet 10 mg PO DAILY Qty: 30 RF: 0 hydrocodone-acetaminophen 5-325 mg tablet 1 tab PO Q6H PRN (Reason: pain) Qty: 25 RF: 0 hydrocodone-acetaminophen 5-325 mg tablet 1 tab PO Q6H PRN (Reason: pain) Qty: 14 RF: 0 Discharge Orders: Discharge ED (Routine); Ordered 10/05/21 Ordered By: Negar Emanuel Referrals: Tonia Gonzales [Primary Care Provider] - 1-3 days Discharge Diet: Advance as tolerated Discharge Activity: Resume usual activity Patient Instructions: Pulmonary Embolism (ED) Coding Level of Care Code ED Corporate Security Manager for Chg Fwd Exam Detailed
[2021-10-05 18:37] VITALS: BP 131/59; PULSE 73; RESP 17; O2SAT 99
[2021-10-05 19:23] VITALS: BP 135/97; PULSE 72; RESP 27; O2SAT 99
[2021-10-05 20:18] VITALS: PULSE 76; O2SAT 96
[2021-10-05] MEDS: iohexol 350 mg/mL 100 mL Btl IV (20:41)
[2021-10-05] MEDS: enoxaparin 60 mg/0.6 mL Syringe SUBCUT (21:49)
[2021-10-05 21:57] VITALS: BP 130/60; O2SAT 95
== END 2021-10-05 21:59 | disposition left against medical advice (07) ==
PROVIDERS: Emergency Provider Emergency Medicine; PCP Nurse Practitioner Family
DX: I26.99 Other pulmonary embolism without acute cor pulmonale (principal); Z53.29 Procedure and treatment not carried out because of patient's decision for other reasons; Z79.891 Long term (current) use of opiate analgesic
CPT/HCPCS: 71275; 96372; 99284; J1650; Q9967

== ENCOUNTER 2021-10-08 08:05 | Outpatient (CLI) | payer MEDICARE, SELFPAY | END 2021-10-08 08:06 | disposition home or self-care (01) | LOC: WOUND 08:06 | PROVIDERS: PCP Nurse Practitioner Family; Visit Provider Emergency Medicine | DX: L59.8 Other specified disorders of the skin and subcutaneous tissue related to radiation (principal); Y84.2 Radiological procedure and radiotherapy as the cause of abnormal reaction of the patient, or of later complication, without mention of misadventure at the time of the procedure; Y78.1 Therapeutic (nonsurgical) and rehabilitative radiological devices associated with adverse incidents; Z87.891 Personal history of nicotine dependence | CPT/HCPCS: 11042 ==

== ENCOUNTER 2021-10-15 08:10 | Outpatient (CLI) | payer MEDICARE, SELFPAY | END 2021-10-15 08:11 | disposition home or self-care (01) | LOC: WOUND 08:12 | PROVIDERS: PCP Nurse Practitioner Family; Visit Provider Emergency Medicine | DX: Z09 Encounter for follow-up examination after completed treatment for conditions other than malignant neoplasm (principal); Z87.891 Personal history of nicotine dependence | CPT/HCPCS: 99212 ==

== ENCOUNTER 2021-10-23 09:45 | Outpatient (RCR) | payer MEDICARE, SELFPAY ==
[2021-10-23 10:11] LABS: Basophils # 0.1 10^3/uL (0.0-0.1); Basophils % 0.8 %; Eosinophils # 0.1 10^3/uL (0.0-0.8); Eosinophils % 1.5 %; Hematocrit 26.2 % (42.0-52.0); Lymphocytes # 0.9 10^3/uL (0.8-4.8); Lymphocytes % 10.2 %; Mean Corpuscular HGB Conc 30.5 g/dL (30.0-36.0); Mean Corpuscular Hemoglobin 28.3 pg (28.0-34.0); Mean Corpuscular Volume 92.6 fl (80-94); Mean Platelet Volume 9.9 fL (7.4-10.4); Neutrophils # 6.03 10^3/uL (1.8-7.7); Neutrophils % 70.5 %; Nucleated Red Blood Cells % 0 %; Platelet Count 379 10^3/cmm (130-400); Red Blood Count 2.83 10^6/uL (4.1-5.3); Red Cell Distribution Width 23.1 % (12.1-15.1); White Blood Count 8.6 10^3/uL (4.0-10.0)
[2021-10-23 10:26] LABS: Alanine Aminotransferase 9 U/L (0-41); Albumin Level 3.4 g/dL (3.5-5.2); Alkaline Phosphatase 133 IU/L (40-130); Anion Gap 17.8 (5-19); Aspartate Amino Transferase 14 U/L (0-40); Blood Urea Nitrogen 14 mg/dL (8-23); Calcium 8.5 mg/dL (8.5-10.5); Carbon Dioxide 23 mmol/L (22-29); Chloride 104 mmol/L (98-107); Globulin 2.8 g/dL (1.3-4.6); Glomerular Filtration Rate 166.4 mL/min (90-130); Glucose 87 mg/dL (65-115); Osmolality Calculated 292 mOsm/kg (285-295); Potassium 3.8 mmol/L (3.5-5.1); Sodium 141 mmol/L (136-145); Total Bilirubin 0.2 mg/dL (0.15-1.2); Total Protein 6.2 g/dL (6.6-8.7)
--- NOTE | 2021-10-23 11:07 | ONCRAD EPV_ITS ---
Radiation Oncology Follow-Up Note Patient Name: Cristobal Delatorre Date of : 1955 Date of Service: 10/23/2021 Attending Physician: Jerry Eaton M.D. Cristobal Delatorre returned to my office this morning for a routinely scheduled follow-up appointment. 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 Head and neck radiation therapy was delivered between the dates of August 10, 2021 through September 21, 2021. A dose of 62 Gy of a prescribed dose of 70 Gy was delivered in 31 fractions encompassing 43 elapsed days. A laryngoscopy performed at [facility] in [place], [place] described post-radiation changes. However, a CT of the neck and chest ordered on October 05, 2021 identified possible thyroid cartilage erosion concerning for persistent disease. A PE was also reported. On review of systems, he described improvement in dysgeusia. On physical examination, he weighed 137 lbs. His temperature was 97.4???F and the blood pressure was 158/80 mmHg. The pulse was 91 bpm and the respiratory rate was 20 breaths per minute. I did not identify any cervical lymphadenopathy. Mild submental edema was present. In summary, Mr. Delatorre returned for a post-radiotherapy follow-up appointment. Toxicities from radiotherapy have improved. He will be scheduled for PET/CT and continue follow-up with otolaryngology at [facility]. Signed by: Dr. Jerry Eaton 10/23/2021 11:06:03 AM
[2021-10-23 12:49] LABS: Iron 46 ug/dL (59-158)
[2021-10-23 12:50] LABS: Iron 45 ug/dL (59-158); Percent Saturation 22.7 % (20-50); Total Iron Binding Capacity 198 mcg/dl; Unsaturated Iron Binding 153 ug/dL (112-347)
[2021-10-23 13:25] LABS: Ferritin 1149 ng/mL (30-400)
== END 2021-10-28 12:50 | disposition home or self-care (01) ==
LOC: ONCMED 09:45
PROVIDERS: Nurse Practitioner Family; Absent Provider Radiology Radiation Oncology; PCP Nurse Practitioner Family; Visit Provider Internal Medicine Hematology & Oncology
DX: C32.8 Malignant neoplasm of overlapping sites of larynx (principal); F17.211 Nicotine dependence, cigarettes, in remission; Z93.0 Tracheostomy status; I26.99 Other pulmonary embolism without acute cor pulmonale; J43.2 Centrilobular emphysema; J98.11 Atelectasis; I82.491 Acute embolism and thrombosis of other specified deep vein of right lower extremity; D50.9 Iron deficiency anemia, unspecified; Z79.01 Long term (current) use of anticoagulants; Z79.899 Other long term (current) drug therapy
CPT/HCPCS: 36415; 80053; 82728; 83540; 83550; 85025; 99024; 99215

== ENCOUNTER 2021-10-28 12:52 | Outpatient (RCR) | payer MEDICARE, SELFPAY ==
--- NOTE | 2021-10-28 12:57 | USCV_ITS ---
Cristobal Delatorre Age: 66 Gender: M : 1955 Exam Date: 10/28/2021 13:19 Ordering Phys: Madeline Olson TIP OUT WORKER Technologist: Exam Location: [facility] [place] Indication: RLE edema/pain HISTORY: RLE edema/pain, history CA- patient recently started chemo treatments PROCEDURES: On the right side, the common femoral, superficial femoral, profunda femoral, popliteal, posterior tibial, greater saphenous veins and the peroneal trunk were identified and interrogated in the standard fashion. FINDINGS: Occlusive thrombus found in right mid to distal femoral vein and popliteal vein. Remainder of vessels are free of thrombus. CONCLUSIONS Acute right lower extremity deep venous thrombosis. Dr. Srhuti Elizabeth DO (Electronically Signed) Final Date: 28 October 2021 15:44 S
== END 2021-11-06 23:59 | disposition home or self-care (01) ==
LOC: ONCMED 12:52
PROVIDERS: PCP Nurse Practitioner Family; Visit Provider Nurse Practitioner Family
DX: R60.0 Localized edema (principal); M79.661 Pain in right lower leg; I82.431 Acute embolism and thrombosis of right popliteal vein; I82.411 Acute embolism and thrombosis of right femoral vein
CPT/HCPCS: 93971

== ENCOUNTER → 2021-11-17 15:43 | Outpatient (BNVA) | payer MEDICARE, SELFPAY | PROVIDERS: PCP Nurse Practitioner Family; Visit Provider Otolaryngology | DX: Z01.812 Encounter for preprocedural laboratory examination (principal); Z20.822 Contact with and (suspected) exposure to COVID-19 | CPT/HCPCS: 87635 ==

== ENCOUNTER 2021-11-23 08:59 | Outpatient (CLI) | payer MEDICARE, SELFPAY ==
--- NOTE | 2021-11-23 | CT_ITS ---
WS: [id number] CT NECK TECHNIQUE: Contrast-enhanced CT of the neck with coronal and sagittal reformatted images. CLINICAL INFORMATION: MALIGNANT NEOPLASM LARYNX COMPARISON: CT neck September 21, 2021 and PET/CT May 09, 2021 DLP: 934.[address] scans at [facility] use at least one of these dose optimization techniques: automated e xposure control; mA and/or kV adjustment per patient size (includes targeted exams where dose is matc hed to clinical indication); or iterative reconstruction. FINDINGS: Prior postoperative changes tracheostomy. Soft tissue mass in the left piriform sinus with thickening of the left hypopharynx. This measures approximately 2.3 x 1.3 x 2.9 CM. Thickening and edema involv ing the epiglottis likely due to treatment-related changes. Diffuse thickening of the supraglottic la rynx similar in appearance compared to previous. Normal parotid glands. Normal submandibular glands. No cervical lymphadenopathy. Small fibrotic opaci ty right upper lobe. Partially visualized intracranial contents are normal. Paranasal sinuses and mas toid air cells well aerated. Normal posterior nasopharynx. Normal parapharyngeal fat. Compression fra ctures in the upper cervical spine at T5 and T6 with anterior wedging. [facility] CT/CT neck w con* [id number] IMPRESSION: 1. Previously described mass in the left piriform sinus with circumferential l aryngeal thickening is slightly less bulky but not significantly changed compar ed to September 21, 2021. 2. Diffuse thickening of the epiglottis has progressed compared to previous elli balderrama due to treatment-related changes. 3. Stable circumferential diffuse thickening of the supraglottic larynx. 4. Prior postoperative changes tracheostomy unchanged. 5. No cervical lymphadenopathy. 6. Stable compression fractures with anterior wedging at T5 and T6
[2021-11-23] MEDS: iohexol 300 mg/mL 100 mL Btl IV (10:36)
== END 2021-11-23 09:00 | disposition home or self-care (01) ==
PROVIDERS: PCP Nurse Practitioner Family; Visit Provider Radiology Radiation Oncology
DX: C32.9 Malignant neoplasm of larynx, unspecified (principal); S22.050A Wedge compression fracture of T5-T6 vertebra, initial encounter for closed fracture; X58.XXXA Exposure to other specified factors, initial encounter; Z93.0 Tracheostomy status
CPT/HCPCS: 70491; Q9967

== ENCOUNTER 2021-11-26 08:19 | Outpatient (RCR) | payer MEDICARE, SELFPAY ==
[2021-11-26 08:49] LABS: Basophils % 0.5 %; Eosinophils # 0.2 10^3/uL (0.0-0.8); Hematocrit 32.4 % (42.0-52.0); Lymphocytes # 1.1 10^3/uL (0.8-4.8); Lymphocytes % 14.2 %; Mean Corpuscular HGB Conc 30.9 g/dL (30.0-36.0); Mean Corpuscular Hemoglobin 29.3 pg (28.0-34.0); Mean Platelet Volume 9.7 fL (7.4-10.4); Monocytes # 0.6 10^3/uL (0.2-0.9); Monocytes % 7.9 %; Neutrophils # 5.73 10^3/uL (1.8-7.7); Neutrophils % 74.5 %; Nucleated Red Blood Cells % 0 %; Platelet Count 243 10^3/cmm (130-400); Red Blood Count 3.41 10^6/uL (4.1-5.3); Red Cell Distribution Width 16.1 % (12.1-15.1); White Blood Count 7.7 10^3/uL (4.0-10.0)
[2021-11-26 09:10] LABS: Ferritin 716 ng/mL (30-400); Iron 54 ug/dL (59-158); Percent Saturation 22.4 % (20-50); Total Iron Binding Capacity 241 mcg/dl; Unsaturated Iron Binding 187 ug/dL (112-347)
--- NOTE | 2021-11-26 10:54 | ONC FU_ITS ---
Dr. Plascencia follow up note Patient: Cristobal Delatorre Unit #: [id number]: 1955 Dicatated By: Laura Plascencia M.D.Date of Visit:Nov 26, 2021 Onc Med Follow-up/Prog Note History of Present Illness: Mr. Delatorre is a 66-year-old gentleman with a several month history of hoarseness of voice. He was also complaining of painful lump in left upper neck. He had no hemoptysis or hematemesis, no night sweats, no significant weight loss. He was referred to ENT for evaluation and underwent flexible laryngoscope on April 20, 2021. This confirmed left laryngeal mass with partial obstructed, but stable air with, right vocal cord was mobile. Mr Delatorre underwent CT scan of the neck on April 21, 2021 which confirmed large left supraglottic Laryngeal and hypopharyngeal neoplasm with probable involvement of left false and possibly true cords. Sclerotic changes in the left arytenoid and upper cricoid cartilage suggest possible tumor involvement. A few enlarged left cervical lymph nodes possible metastatic; Mild diffuse thickening of uvula. A biopsy was obtained on April 28, 2021 which confirmed squamous cell carcinoma, invasive, poorly differentiated involving epiglottic mass. CT PET scan was done on May 09, 2021 which showed 2.2 x 2.8 cm with SUV of 21.9 mass and left-sided larynx with narrowing of trachea at the level of hyoid bone. There is a modest activity in subcentimeter left jugulodigastric level 3 lymph node with SUV up to 2.7 could be reactive but malignancy is not excluded. Mr Delatorre underwent preventive tracheostomy, tolerated that procedure well. He was referred to Dr Plascencia for evaluation regarding further treatment. Patient has history of heavy smoking about 50 years, quit recently. Dr Plascencia recommended combined chemoradiation with weekly cisplatin. He began his first treatment on 08/10/2021. He has now completed chemoradiation. Mr. Delatorre had a CT scan of the neck on 09/24/2021. It was then read by radiologist at [facility] in [place]. An appointment following the CT scan occurred on 10/05/2021. The findings on the CT of the neck were #[address] findings of metastatic disease within the chest. #2 pulmonary embolism within the right main pulmonary artery extending into the right upper lobe pulmonary artery without evidence of right heart strain. #3 dilatation of the main pancreatic duct with pancreatic calcifications are incompletely evaluated on the CT chest. CT scanning of the abdomen is recommended. #4 multiple age-indeterminate compression deformities within the thoracic spine no bony retropulsion. #5 centrilobular and paraseptal emphysema. According to the note by Dr. Mohan the CT scan of the neck revealed soft tissue thickening and enhancement in the glottic region with erosion of the thyroid cartilage. This is concerning for persistent disease versus treatment effect. He has a follow-up appointment at [facility] on [address] for a biopsy. A CT angio of the chest was performed on 10/05/2021 the exam is positive for pulmonary embolus with filling defects in the right main and bilateral proximal lower lobe pulmonary artery branches there is no saddle embolus. The echo aorta is unremarkable. No aortic aneurysm. No aortic dissection. Trachea there is a tracheostomy in good position. Lungs there are severe emphysematous changes. There is subpleural atelectasis of the dependent portions of the lungs. There is no lobular consolidation. Pleural spaces unremarkable. No pneumothorax. No pleural effusion. Heart no right heart strain. The heart is enlarged. Lymph nodes unremarkable. Bones joints osteopenia moderate degenerative changes in the spine and are noted. Kyphosis and multiple chronic compression fractures in the thoracic spine are noted. Soft tissues unremarkable. Mr. Delatorre was seen in ER at [facility] [address] where he was started on Eliquis twice a day. Patient was referred to [facility], by radiation oncology for evaluation, As there was a concern about no response to combined chemoradiation, as per patient, he underwent biopsy on November, as per patient his frozen section did not show any malignancy but final pathology report is pending and he is scheduled to go back to [facility] on Tuesday, November 30, 2021 for follow-up and further recommendations. Patient had CT scan of neck done on November 23, 2021 which showed previously described mass in the left piriform sinus with circumferential laryngeal thickening is slightly less bulky but not significantly changed compared to September 21, 2021. Diffuse thickening of epiglottis has progressed compared to previous likely due to treatment related changes. Stable circumferential diffuse thickening of supraglottic larynx. Prior postoperative changes tracheostomy unchanged, no cervical lymphadenopathy. Stable compression fracture with anterior wedging at T5 and T6 Came for follow-up, denies any specific complaints, no fever chills, no nausea or vomiting, no diarrhea or constipation, no melena or hematochezia, no hemoptysis or hematemesis, no jaundice, no headaches. As per patient he underwent 'throat' biopsy at [facility] on last Tuesday and frozen section was negative but final pathology report is pending, his case will be discussed in tumor board for further recommendations and he is scheduled to go back on coming Tuesday e.g. November 30, 2021 for follow-up. As per patient his right leg swelling is improving, patient has history of DVT and pulmonary embolism for which she is on Eliquis. Medications: amLODIPine Besylate 1 Tablet (of 10 mg) Oral daily, Cefdinir 1 Capsule (of 300 mg) Oral b.i.d., Eliquis 1 (5 mg) Tablet Oral b.i.d., Flonase 1 [place](s) (of 50 mcg/act) Suspension Nasal daily, HYDROcodone-Acetaminophen 1 Tablet (of 5-325 mg) Oral q 5 hours PRN, Lisinopril 1 Tablet (of 10 mg) Oral daily, Morphine Sulfate Tablet Oral Take as Directed, traMADol HCl 1 Tablet (of 50 mg) Oral q 6 hours PRN Allergies: No Known Allergies. Review of Systems: Review of Systems is not available for this patient. Vital Signs: Performed on Nov 26, 2021 10:24 Height - 63.00 in Weight - 135.0 lbs (LOW) BSA - 1.64 sq.m BMI - 23.91 Temperature - 98.2 F (LOW) Pulse - 72 /min Respiration - 18 /min BP - 164/65 mm(hg) (HIGH) O2 Sat - 100 % Pain - 2 Fatigue - 2 Performance Status: 0 - Fully active, able to carry on all predisease activities without restrictions. (ECOG) Physical Examination: ENMT - No mouth sores, no thrush, tracheotomy site shows no sign of infection, no cervical lymphadenopathy, Respiratory - Lungs are clear to auscultation, Cardiovascular - Regular rate and rhythm of heart, Abdomen - Soft, bowel sounds present, Extremities - Right leg shows trace edema. Lab/Imaging: Test performed on Nov 26, 2021 08:22 Ferritin 187 ng/mL TIBC 241 mcg/dL WBC 7.7 10^9/L RBC 3.41 10^12/L HGB 10.0 g/dL HCT 32.4 % MCV 95.0 fl MCH 29.3 pg MCHC 30.9 g/dL RDW 16.1 % Platelet Count 243 10^9/L MPV 9.7 fL Neutrophils (Gran) 5.73 10^9/L Lymphocytes 1.0934 10^9/L Monocytes 0.6083 10^9/L Eosinophils 0.154 10^9/L Basophils 0.0385 10^9/L Test performed on Oct 23, 2021 10:01 Sodium 141 mmol/L Potassium 3.8 mmol/L Chloride 104 mmol/L CO2 23 mmol/L Anion Gap 17.8 BUN 14 mg/dL Creatinine 0.5 mg/dL Cr Clearance (Est) 124.5700 mL/min eGFR 166.4 mL/min Glucose 87 mg/dL Osmolality - Calculated 292 mOsm/kg Calcium 8.5 mg/dL Protein, Total 6.2 g/dL Albumin 3.4 g/dL Globulin 2.8 g/dL Bilirubin, Total 0.2 mg/dL ALT (SGPT) 9 U/L AST (SGOT) 14 U/L Alkaline Phosphatase 133 IU/L Neutrophil % 70.5 % Lymphocyte % 10.2 % Monocyte % 12.0 % Eosinophil % 1.5 % Basophils % 0.8 % NRBC % 0 % Impression: Squamous cell carcinoma, invasive, poorly differentiated per flexible laryngoscopy guided biopsy done on April 28, 2021, PD-L1 expression CPS less than 1. CT scan of the neck done on April 21, 2021 showed large left supraglottic ngl and hypopharyngeal neoplasm with probable involvement of left false and probably true cords. Sclerotic changes in the left arytenoid and appropriate cord cartilages just possible tumor involvement. Few enlarged left cervical lymph node, possibly metastatic. CT PET scan done on May 09, 2021 showed 2.2 x 2.8 cm with SUV of 21.9 mass in the left larynx, status post tracheostomy, with modest activity in the subcentimeter left jugulodigastric level 3 lymph node with SUV of 2.7 may be reactive but malignancy is not excluded clinical stage T2 or 3,N1a History of smoking over 50 years, quit recently Status post tracheostomy Mr. Delatorre had a CT scan of the neck on 09/24/2021. It was then read by radiologist at [facility] in [place]. An appointment following the CT scan occurred on 10/05/2021. The findings on the CT of the neck were #[address] findings of metastatic disease within the chest. #2 pulmonary embolism within the right main pulmonary artery extending into the right upper lobe pulmonary artery without evidence of right heart strain. #3 dilatation of the main pancreatic duct with pancreatic calcifications are incompletely evaluated on the CT chest. CT scanning of the abdomen is recommended. #4 multiple age-indeterminate compression deformities within the thoracic spine no bony retropulsion. #5 centrilobular and paraseptal emphysema. According to the note by Dr. Mohan the CT scan of the neck revealed soft tissue thickening and enhancement in the glottic region with erosion of the thyroid cartilage. This is concerning for persistent disease versus treatment effect. He has a follow-up appointment at [facility] on [address] for a biopsy[address] A CT angio of the chest was performed on 10/05/2021 the exam is positive for pulmonary embolus with filling defects in the right main and bilateral proximal lower lobe pulmonary artery branches there is no saddle embolus. The echo aorta is unremarkable. No aortic aneurysm. No aortic dissection. Trachea there is a tracheostomy in good position. Lungs there are severe emphysematous changes. There is subpleural atelectasis of the dependent portions of the lungs. There is no lobular consolidation. Pleural spaces unremarkable. No pneumothorax. No pleural effusion. Heart no right heart strain. The heart is enlarged. Lymph nodes unremarkable. Bones joints osteopenia moderate degenerative changes in the spine and are noted. Kyphosis and multiple chronic compression fractures in the thoracic spine are noted. Soft tissues unremarkable. Mr. Delatorre was seen in ER at [facility] where he was started on Eliquis twice a day. Plan: Discussed with patient regarding his labs white blood count 7.7 hemoglobin 10 g compared to 8 g previously on October 23, 2021 hematocrit 32.4 platelets 243,000 Clinically, patient is doing reasonably well his follow-up labs shows improvement in his anemia, will continue to monitor, as far as head and neck cancer is concerned, patient is being evaluated at [facility] and recently underwent biopsy to rule out persistent disease, as per patient frozen section did not show malignancy but final pathology report is pending and he is scheduled to go back on coming Tuesday. His CT scan of neck findings were discussed with patient and also discussed with radiation oncology today and patient is scheduled for follow-up CT PET scan at the end of December unless he is recently done biopsy shows otherwise. Return to clinic in 1 month with CBC Signed By: Laura Plascencia M.D. <<Signature on File>>
== END 2021-12-07 23:59 | disposition home or self-care (01) ==
LOC: ONCMED 08:19
PROVIDERS: Visit Provider Hospitalist
DX: C32.8 Malignant neoplasm of overlapping sites of larynx (principal); C77.0 Secondary and unspecified malignant neoplasm of lymph nodes of head, face and neck; F17.211 Nicotine dependence, cigarettes, in remission; J43.2 Centrilobular emphysema; I26.99 Other pulmonary embolism without acute cor pulmonale; Z93.0 Tracheostomy status; Z79.01 Long term (current) use of anticoagulants; Z79.899 Other long term (current) drug therapy
CPT/HCPCS: 36415; 82728; 83540; 83550; 85025; 99215

== ENCOUNTER 2021-12-29 08:12 | Outpatient (RCR) | payer MEDICARE, SELFPAY ==
[2021-12-29 08:55] LABS: Basophils % 0.6 %; Eosinophils # 0.1 10^3/uL (0.0-0.8); Hematocrit 33.7 % (42.0-52.0); Hemoglobin 10.4 g/dL (11.7-16.6); Lymphocytes % 13.7 %; Mean Corpuscular HGB Conc 30.9 g/dL (30.0-36.0); Mean Corpuscular Hemoglobin 28.5 pg (28.0-34.0); Mean Corpuscular Volume 92.3 fl (80-94); Mean Platelet Volume 10.6 fL (7.4-10.4); Monocytes # 0.6 10^3/uL (0.2-0.9); Monocytes % 8.6 %; Neutrophils # 5.29 10^3/uL (1.8-7.7); Neutrophils % 75.5 %; Nucleated Red Blood Cells % 0 %; Platelet Count 214 10^3/cmm (130-400); Red Blood Count 3.65 10^6/uL (4.1-5.3); Red Cell Distribution Width 12.6 % (12.1-15.1)
--- NOTE | 2021-12-30 11:27 | ONC FU_ITS ---
Dr. Plascencia follow up note Patient: Cristobal Delatorre Unit #: [id number]: 1955 Dicatated By: Laura Plascencia M.D.Date of Visit:Dec 29, 2021 Onc Med Follow-up/Prog Note History of Present Illness: Mr. Delatorre is a 66-year-old gentleman with a several month history of hoarseness of voice. He was also complaining of painful lump in left upper neck. He had no hemoptysis or hematemesis, no night sweats, no significant weight loss. He was referred to ENT for evaluation and underwent flexible laryngoscope on April 20, 2021. This confirmed left laryngeal mass with partial obstructed, but stable air with, right vocal cord was mobile. Mr Delatorre underwent CT scan of the neck on April 21, 2021 which confirmed large left supraglottic Laryngeal and hypopharyngeal neoplasm with probable involvement of left false and possibly true cords. Sclerotic changes in the left arytenoid and upper cricoid cartilage suggest possible tumor involvement. A few enlarged left cervical lymph nodes possible metastatic; Mild diffuse thickening of uvula. A biopsy was obtained on April 28, 2021 which confirmed squamous cell carcinoma, invasive, poorly differentiated involving epiglottic mass. CT PET scan was done on May 09, 2021 which showed 2.2 x 2.8 cm with SUV of 21.9 mass and left-sided larynx with narrowing of trachea at the level of hyoid bone. There is a modest activity in subcentimeter left jugulodigastric level 3 lymph node with SUV up to 2.7 could be reactive but malignancy is not excluded. Mr Delatorre underwent preventive tracheostomy, tolerated that procedure well. He was referred to Dr Plascencia for evaluation regarding further treatment. Patient has history of heavy smoking about 50 years, quit recently. recommended combined chemoradiation with weekly cisplatin. He began his first treatment on 08/10/2021. He has now completed chemoradiation. Mr. Delatorre had a CT scan of the neck on 09/24/2021. It was then read by radiologist at [facility] in [place]. An appointment following the CT scan occurred on 10/05/2021. The findings on the CT of the neck were #[address] findings of metastatic disease within the chest. #2 pulmonary embolism within the right main pulmonary artery extending into the right upper lobe pulmonary artery without evidence of right heart strain. #3 dilatation of the main pancreatic duct with pancreatic calcifications are incompletely evaluated on the CT chest. CT scanning of the abdomen is recommended. #4 multiple age-indeterminate compression deformities within the thoracic spine no bony retropulsion. #5 centrilobular and paraseptal emphysema. According to the note by Dr. Mohan the CT scan of the neck revealed soft tissue thickening and enhancement in the glottic region with erosion of the thyroid cartilage. This is concerning for persistent disease versus treatment effect. He has a follow-up appointment at [facility] on [address] for a biopsy[address] A CT angio of the chest was performed on 10/05/2021 the exam is positive for pulmonary embolus with filling defects in the right main and bilateral proximal lower lobe pulmonary artery branches there is no saddle embolus. The echo aorta is unremarkable. No aortic aneurysm. No aortic dissection. Trachea there is a tracheostomy in good position. Lungs there are severe emphysematous changes. There is subpleural atelectasis of the dependent portions of the lungs. There is no lobular consolidation. Pleural spaces unremarkable. No pneumothorax. No pleural effusion. Heart no right heart strain. The heart is enlarged. Lymph nodes unremarkable. Bones joints osteopenia moderate degenerative changes in the spine and are noted. Kyphosis and multiple chronic compression fractures in the thoracic spine are noted. Soft tissues unremarkable. Mr. Delatorre was seen in ER at [facility] where he was started on Eliquis twice a day. Patient was referred to [facility], by radiation oncology for evaluation, As there was a concern about no response to combined chemoradiation, as per patient, he underwent biopsy on November, as per patient his frozen section did not show any malignancy, . Patient had CT scan of neck done on November 23, 2021 which showed previously described mass in the left piriform sinus with circumferential laryngeal thickening is slightly less bulky but not significantly changed compared to September 21, 2021. Diffuse thickening of epiglottis has progressed compared to previous likely due to treatment related changes. Stable circumferential diffuse thickening of supraglottic larynx. Prior postoperative changes tracheostomy unchanged, no cervical lymphadenopathy. Stable compression fracture with anterior wedging at T5 and T6, Subsequently underwent CT PET scan on December 19, 2021 which showed chronic inflammatory uptake in the head and neck from the postsurgical/chemoradiation therapy. Bilateral infiltrates with likely inflammatory uptake suggest aspiration pneumonia. Came for follow-up, denies any specific complaints, no fever chills, no nausea or vomiting, no diarrhea or constipation, as per patient he is scheduled to see Dr. Almazan ENT on January 06, 2022 to discuss follow-up plan. Also following with Dr. Greene ENT at [place]. Patient denies any hemoptysis or hematemesis,, Medications: amLODIPine Besylate 1 Tablet (of 10 mg) Oral daily, Cefdinir 1 Capsule (of 300 mg) Oral b.i.d., Eliquis 1 (5 mg) Tablet Oral b.i.d., Flonase 1 [place](s) (of 50 mcg/act) Suspension Nasal daily, HYDROcodone-Acetaminophen 1 Tablet (of 5-325 mg) Oral q 5 hours PRN, Lisinopril 1 Tablet (of 10 mg) Oral daily, Morphine Sulfate Tablet Oral Take as Directed, traMADol HCl 1 Tablet (of 50 mg) Oral q 6 hours PRN Allergies: No Known Allergies. Review of Systems: Review of Systems is not available for this patient. Vital Signs: Performed on Dec 29, 2021 11:46 Height - 63.00 in Weight - 141.4 lbs (HIGH) BSA - 1.67 sq.m BMI - 25.05 Temperature - 98.1 F (LOW) Pulse - 73 /min Respiration - 18 /min BP - 128/61 mm(hg) O2 Sat - 93 % (LOW) Pain - 3 Fatigue - 1 Performance Status: 1 - No physically strenuous activity, but ambulatory and able to carry out light or sedentary work (e.g. office work, light house work). (ECOG) Physical Examination: ENMT - No mouth sores, no thrush, no jaundice, trach site without discharge, Respiratory - Lungs are clear to auscultation, Cardiovascular - Regular rate and rhythm of heart, Abdomen - Soft, bowel sounds present, G-tube site with no sign of infection, clear, Extremities - No visible edema. Lab/Imaging: Test performed on Nov 26, 2021 08:22 Ferritin 187 ng/mL TIBC 241 mcg/dL WBC 7.7 10^9/L RBC 3.41 10^12/L HGB 10.0 g/dL HCT 32.4 % MCV 95.0 fl MCH 29.3 pg MCHC 30.9 g/dL RDW 16.1 % Platelet Count 243 10^9/L MPV 9.7 fL Neutrophils (Gran) 5.73 10^9/L Lymphocytes 1.0934 10^9/L Monocytes 0.6083 10^9/L Eosinophils 0.154 10^9/L Basophils 0.0385 10^9/L Test performed on Oct 23, 2021 10:01 Sodium 141 mmol/L Potassium 3.8 mmol/L Chloride 104 mmol/L CO2 23 mmol/L Anion Gap 17.8 BUN 14 mg/dL Creatinine 0.5 mg/dL Cr Clearance (Est) 124.5700 mL/min eGFR 166.4 mL/min Glucose 87 mg/dL Osmolality - Calculated 292 mOsm/kg Calcium 8.5 mg/dL Protein, Total 6.2 g/dL Albumin 3.4 g/dL Globulin 2.8 g/dL Bilirubin, Total 0.2 mg/dL ALT (SGPT) 9 U/L AST (SGOT) 14 U/L Alkaline Phosphatase 133 IU/L Neutrophil % 70.5 % Lymphocyte % 10.2 % Monocyte % 12.0 % Eosinophil % 1.5 % Basophils % 0.8 % NRBC % 0 % Impression: Squamous cell carcinoma, invasive, poorly differentiated per flexible laryngoscopy guided biopsy done on April 28, 2021, PD-L1 expression CPS less than 1. CT scan of the neck done on April 21, 2021 showed large left supraglottic ngl and hypopharyngeal neoplasm with probable involvement of left false and probably true cords. Sclerotic changes in the left arytenoid and appropriate cord cartilages just possible tumor involvement. Few enlarged left cervical lymph node, possibly metastatic. CT PET scan done on May 09, 2021 showed 2.2 x 2.8 cm with SUV of 21.9 mass in the left larynx, status post tracheostomy, with modest activity in the subcentimeter left jugulodigastric level 3 lymph node with SUV of 2.7 may be reactive but malignancy is not excluded clinical stage T2 or 3,N1a History of smoking over 50 years, quit recently Status post tracheostomy Mr. Delatorre had a CT scan of the neck on 09/24/2021. It was then read by radiologist at [facility] in [place]. An appointment following the CT scan occurred on 10/05/2021. The findings on the CT of the neck were #[address] findings of metastatic disease within the chest. #2 pulmonary embolism within the right main pulmonary artery extending into the right upper lobe pulmonary artery without evidence of right heart strain. #3 dilatation of the main pancreatic duct with pancreatic calcifications are incompletely evaluated on the CT chest. CT scanning of the abdomen is recommended. #4 multiple age-indeterminate compression deformities within the thoracic spine no bony retropulsion. #5 centrilobular and paraseptal emphysema. According to the note by Dr. Mohan the CT scan of the neck revealed soft tissue thickening and enhancement in the glottic region with erosion of the thyroid cartilage. This is concerning for persistent disease versus treatment effect. He has a follow-up appointment at [facility] on [address] for a biopsy. A CT angio of the chest was performed on 10/05/2021 the exam is positive for pulmonary embolus with filling defects in the right main and bilateral proximal lower lobe pulmonary artery branches there is no saddle embolus. The echo aorta is unremarkable. No aortic aneurysm. No aortic dissection. Trachea there is a tracheostomy in good position. Lungs there are severe emphysematous changes. There is subpleural atelectasis of the dependent portions of the lungs. There is no lobular consolidation. Pleural spaces unremarkable. No pneumothorax. No pleural effusion. Heart no right heart strain. The heart is enlarged. Lymph nodes unremarkable. Bones joints osteopenia moderate degenerative changes in the spine and are noted. Kyphosis and multiple chronic compression fractures in the thoracic spine are noted. Soft tissues unremarkable. Mr. Delatorre was seen in ER at [facility] where he was started on Eliquis twice a day. Plan: Discussed with patient regarding his labs white blood count 7 hemoglobin 10.4 g compared to 8 g on October 23, 2021 hematocrit 33.7 platelets 214,000 and follow-up CT PET scan done on December 19, 2021 showed chronic inflammatory uptake in head and neck, probably postsurgical/chemoradiation Bilateral infiltrates with likely inflammatory uptake suggesting aspiration pneumonia. Clinically, patient doing well with no new signs symptom suggestive of persistent or recurrence of disease, now being evaluated by ENT, as per patient he is scheduled to see Dr. Almazan on January 06, 2022, his follow-up CT PET scan shows excellent response to combined chemoradiation, now with no evidence of disease., Patient is being followed by ENT at [place] also. As far as anemia is concerned, his anemia work-up was inconclusive and his hemoglobin continued to improve, will monitor return to clinic in 1 month with CBC, if his anemia resolves, will consider follow-up on as-needed basis Signed By: Laura Plascencia M.D. <<Signature on File>>
== END 2022-01-04 23:59 | disposition home or self-care (01) ==
LOC: ONCMED 08:12
PROVIDERS: Visit Provider Internal Medicine Hematology & Oncology
DX: Z08 Encounter for follow-up examination after completed treatment for malignant neoplasm (principal); Z85.21 Personal history of malignant neoplasm of larynx; F17.211 Nicotine dependence, cigarettes, in remission; Z93.0 Tracheostomy status; J43.2 Centrilobular emphysema; I26.99 Other pulmonary embolism without acute cor pulmonale; Z79.01 Long term (current) use of anticoagulants; Z79.899 Other long term (current) drug therapy
CPT/HCPCS: 36415; 85025; 99214

== ENCOUNTER 2022-01-28 10:42 | Outpatient (RCR) | payer MEDICARE, SELFPAY ==
[2022-01-28 11:14] LABS: Basophils % 0.5 %; Eosinophils # 0.1 10^3/uL (0.0-0.8); Eosinophils % 1.2 %; Hematocrit 40.8 % (42.0-52.0); Lymphocytes % 15.5 %; Mean Corpuscular HGB Conc 31.9 g/dL (30.0-36.0); Mean Corpuscular Hemoglobin 28.4 pg (28.0-34.0); Mean Corpuscular Volume 89.3 fl (80-94); Mean Platelet Volume 10.2 fL (7.4-10.4); Monocytes # 0.5 10^3/uL (0.2-0.9); Monocytes % 7.7 %; Neutrophils # 4.84 10^3/uL (1.8-7.7); Neutrophils % 74.8 %; Nucleated Red Blood Cells % 0 %; Platelet Count 202 10^3/cmm (130-400); Red Blood Count 4.57 10^6/uL (4.1-5.3); Red Cell Distribution Width 12.5 % (12.1-15.1); White Blood Count 6.5 10^3/uL (4.0-10.0)
--- NOTE | 2022-02-03 21:39 | ONC FU_ITS ---
Madeline Olson Progress Note Patient: Cristobal Delatorre Unit #: [id number]: 1955 Dicatated By: Madeline Olson N.P.Date of Visit:Jan 28, 2022 Onc MED Follow-up/Prog Note Chief Complaint: Laryngeal carcinoma History of Present Illness: Mr. Delatorre is a 66-year-old gentleman with a several month history of hoarseness of voice. He was also complaining of painful lump in left upper neck. He had no hemoptysis or hematemesis, no night sweats, no significant weight loss. He was referred to ENT for evaluation and underwent flexible laryngoscope on April 20, 2021. This confirmed left laryngeal mass with partial obstructed, but stable air with, right vocal cord was mobile. Mr Delatorre underwent CT scan of the neck on April 21, 2021 which confirmed large left supraglottic Laryngeal and hypopharyngeal neoplasm with probable involvement of left false and possibly true cords. Sclerotic changes in the left arytenoid and upper cricoid cartilage suggest possible tumor involvement. A few enlarged left cervical lymph nodes possible metastatic; Mild diffuse thickening of uvula. A biopsy was obtained on April 28, 2021 which confirmed squamous cell carcinoma, invasive, poorly differentiated involving epiglottic mass. CT PET scan was done on May 09, 2021 which showed 2.2 x 2.8 cm with SUV of 21.9 mass and left-sided larynx with narrowing of trachea at the level of hyoid bone. There is a modest activity in subcentimeter left jugulodigastric level 3 lymph node with SUV up to 2.7 could be reactive but malignancy is not excluded. Mr Delatorre underwent preventive tracheostomy, tolerated that procedure well. He was referred to Dr Plascencia for evaluation regarding further treatment. Patient has history of heavy smoking about 50 years, quit recently. recommended combined chemoradiation with weekly cisplatin. He began his first treatment on 08/10/2021. He has now completed chemoradiation. Mr. Delatorre had a CT scan of the neck on 09/24/2021. It was then read by radiologist at [facility] in [place]. An appointment following the CT scan occurred on 10/05/2021. The findings on the CT of the neck were #[address] findings of metastatic disease within the chest. #2 pulmonary embolism within the right main pulmonary artery extending into the right upper lobe pulmonary artery without evidence of right heart strain. #3 dilatation of the main pancreatic duct with pancreatic calcifications are incompletely evaluated on the CT chest. CT scanning of the abdomen is recommended. #4 multiple age-indeterminate compression deformities within the thoracic spine no bony retropulsion. #5 centrilobular and paraseptal emphysema. According to the note by Dr. Mohan the CT scan of the neck revealed soft tissue thickening and enhancement in the glottic region with erosion of the thyroid cartilage. This is concerning for persistent disease versus treatment effect. He has a follow-up appointment at [facility] on 1226 for a biopsy. A CT angio of the chest was performed on 10/05/2021 the exam is positive for pulmonary embolus with filling defects in the right main and bilateral proximal lower lobe pulmonary artery branches there is no saddle embolus. The echo aorta is unremarkable. No aortic aneurysm. No aortic dissection. Trachea there is a tracheostomy in good position. Lungs there are severe emphysematous changes. There is subpleural atelectasis of the dependent portions of the lungs. There is no lobular consolidation. Pleural spaces unremarkable. No pneumothorax. No pleural effusion. Heart no right heart strain. The heart is enlarged. Lymph nodes unremarkable. Bones joints osteopenia moderate degenerative changes in the spine and are noted. Kyphosis and multiple chronic compression fractures in the thoracic spine are noted. Soft tissues unremarkable. Mr. Delatorre was seen in ER at [facility] where he was started on Eliquis twice a day. Patient was referred to [facility], by radiation oncology for evaluation, As there was a concern about no response to combined chemoradiation, as per patient, he underwent biopsy on November, as per patient his frozen section did not show any malignancy, . Patient had CT scan of neck done on November 23, 2021 which showed previously described mass in the left piriform sinus with circumferential laryngeal thickening is slightly less bulky but not significantly changed compared to September 21, 2021. Diffuse thickening of epiglottis has progressed compared to previous likely due to treatment related changes. Stable circumferential diffuse thickening of supraglottic larynx. Prior postoperative changes tracheostomy unchanged, no cervical lymphadenopathy. Stable compression fracture with anterior wedging at T5 and T6, Subsequently underwent CT PET scan on December 19, 2021 which showed chronic inflammatory uptake in the head and neck from the postsurgical/chemoradiation therapy. Bilateral infiltrates with likely inflammatory uptake suggest aspiration pneumonia. Patient presents today for follow-up. He states he has been feeling great. He denies weakness or fatigue. His appetite has been good. He has a feeding tube he does not use that. He is awaiting a swallow study ordered by Dr. Almazan. He denies sinus drainage or congestion. His trach is intact. No shortness of breath or cough. No GI or problems. No joint pain. No headaches or dizziness. Review Of Symptoms: see above. Past Medical History: Hypertension Past Surgical History: Tracheotomy in 2020 Allergies: No Known Allergies. Medications: Acetaminophen Tablet Oral PRN Eliquis 1 (5 mg) Tablet Oral b.i.d. Ipratropium Ripley (0.03 %) Solution Nasal Take as Directed Iron 1 Tablet (of 325 (65 fe) mg) Oral daily Family History: Mr. Delatorre's mother at age 87. Mr. Delatorre's father at age 93. Mr. Delatorre has 1 brother who is alive. He has 1 sister who is alive. Social History: Mr. Delatorre is single. Mr. Delatorre quit smoking less than one year ago but had smoked 1.0 pack/day for 50 years. He is a former drinker. He has indicated exposure to the following products: cigarettes. Physical Examination: Performed on Jan 28, 2022 12:43: Height - 63.00 in, BP - 181/77 mm(hg) (HIGH), Performed on Jan 28, 2022 12:43: Height - 63.00 in, Weight - 140.6 lbs (LOW), BSA - 1.66 sq.m, BMI - 24.91, Temperature - 97.5 F (LOW), Pulse - 82 /min, Respiration - 16 /min, BP - 174/69 mm(hg) (HIGH), O2 Sat - 95 % (LOW), Pain - 0, and Fatigue - 1. Performance Status: 0 - Fully active, able to carry on all predisease activities without restrictions. (ECOG) Constitutional Alert, cooperative, oriented. Mood and affect appropriate. Appears close to chronological age. Well nourished. Well developed. Head Normocephalic; no scars. Respiratory Lungs are clear to auscultation without rhonchi or wheezing. Cardiovascular Regular rate and rhythm of heart without murmurs, gallops or rubs. Abdomen Non-tender, non-distended, no masses, ascites or hepatosplenomegaly. Good bowel sounds. No guarding or rebound tenderness. Feeding tube intact Extremities No edema Musculoskeletal No tenderness or swelling, normal range of motion without obvious weakness. Psychiatric Alert and oriented times three. Coherent speech. Verbalizes understanding of our discussions today. Laboratory: Test performed on Jan 28, 2022 11:05 WBC 6.5 10 3/uL RBC 4.57 10 6/uL HGB 13.0 g/dL HCT 40.8 % MCV 89.3 fl MCH 28.4 pg MCHC 31.9 g/dL RDW 12.5 % Platelet Count 202 10 3/cmm MPV 10.2 fL Neutrophils 4.84 10 3/uL Lymphocytes 1.0 10 3/uL Monocytes 0.5 10 3/uL Eosinophils 0.1 10 3/uL Basophils 0.0 10 3/uL Neutrophil % 74.8 % Lymphocyte % 15.5 % Monocyte % 7.7 % Eosinophil % 1.2 % Basophils % 0.5 % NRBC % 0 % Test performed on Nov 26, 2021 08:22 Ferritin 187 ng/mL TIBC 241 mcg/dL Test performed on Oct 23, 2021 10:01 Sodium 141 mmol/L Potassium 3.8 mmol/L Chloride 104 mmol/L CO2 23 mmol/L Anion Gap 17.8 BUN 14 mg/dL Creatinine 0.5 mg/dL Cr Clearance (Est) 124.5700 mL/min eGFR 166.4 mL/min Glucose 87 mg/dL Osmolality - Calculated 292 mOsm/kg Calcium 8.5 mg/dL Protein, Total 6.2 g/dL Albumin 3.4 g/dL Globulin 2.8 g/dL Bilirubin, Total 0.2 mg/dL ALT (SGPT) 9 U/L AST (SGOT) 14 U/L Alkaline Phosphatase 133 IU/L Impression: Squamous cell carcinoma, invasive, poorly differentiated per flexible laryngoscopy guided biopsy done on April 28, 2021, PD-L1 expression CPS less than 1. CT scan of the neck done on April 21, 2021 showed large left supraglottic ngl and hypopharyngeal neoplasm with probable involvement of left false and probably true cords. Sclerotic changes in the left arytenoid and appropriate cord cartilages just possible tumor involvement. Few enlarged left cervical lymph node, possibly metastatic. CT PET scan done on May 09, 2021 showed 2.2 x 2.8 cm with SUV of 21.9 mass in the left larynx, status post tracheostomy, with modest activity in the subcentimeter left jugulodigastric level 3 lymph node with SUV of 2.7 may be reactive but malignancy is not excluded clinical stage T2 or 3,N1a History of smoking over 50 years, quit recently Status post tracheostomy Mr. Delatorre had a CT scan of the neck on 09/24/2021. It was then read by radiologist at [facility] in [place]. An appointment following the CT scan occurred on 10/05/2021. The findings on the CT of the neck were #[address] findings of metastatic disease within the chest. #2 pulmonary embolism within the right main pulmonary artery extending into the right upper lobe pulmonary artery without evidence of right heart strain. #3 dilatation of the main pancreatic duct with pancreatic calcifications are incompletely evaluated on the CT chest. CT scanning of the abdomen is recommended. #4 multiple age-indeterminate compression deformities within the thoracic spine no bony retropulsion. #5 centrilobular and paraseptal emphysema. According to the note by Dr. Mohan the CT scan of the neck revealed soft tissue thickening and enhancement in the glottic region with erosion of the thyroid cartilage. This is concerning for persistent disease versus treatment effect. He has a follow-up appointment at [facility] on 1227 for a biopsy. A CT angio of the chest was performed on 10/05/2021 the exam is positive for pulmonary embolus with filling defects in the right main and bilateral proximal lower lobe pulmonary artery branches there is no saddle embolus. The echo aorta is unremarkable. No aortic aneurysm. No aortic dissection. Trachea there is a tracheostomy in good position. Lungs there are severe emphysematous changes. There is subpleural atelectasis of the dependent portions of the lungs. There is no lobular consolidation. Pleural spaces unremarkable. No pneumothorax. No pleural effusion. Heart no right heart strain. The heart is enlarged. Lymph nodes unremarkable. Bones joints osteopenia moderate degenerative changes in the spine and are noted. Kyphosis and multiple chronic compression fractures in the thoracic spine are noted. Soft tissues unremarkable. Mr. Delatorre was seen in ER at [facility] where he was started on Eliquis twice a day. Plan: Clinically, patient doing well with no new signs symptom suggestive of persistent or recurrence of disease, now being evaluated by ENT Dr. Almazan. follow-up CT PET scan done on December 19, 2021 showed chronic inflammatory uptake in head and neck, probably postsurgical/chemoradiation. Excellent response to combined chemoradiation, now with no evidence of disease. Patient is being followed by ENT at [facility]. Patient followed up for anemia. His CBC is within normal limits with WBC at 6.5 hemoglobin at 13.0 hematocrit 40.8 and platelets of 202,000. Anemia seems to be resolving patient is on oral iron. He will follow-up as needed. Signed By: Madeline Olson NRuddy. <<Signature on File>>
== END 2022-02-04 23:59 | disposition home or self-care (01) ==
LOC: ONCMED 10:42
PROVIDERS: Visit Provider Nurse Practitioner Family
DX: C32.8 Malignant neoplasm of overlapping sites of larynx (principal); R59.0 Localized enlarged lymph nodes; F17.211 Nicotine dependence, cigarettes, in remission; Z93.0 Tracheostomy status; I26.99 Other pulmonary embolism without acute cor pulmonale; J43.2 Centrilobular emphysema; Z79.01 Long term (current) use of anticoagulants; D50.9 Iron deficiency anemia, unspecified; Z79.899 Other long term (current) drug therapy; Z92.21 Personal history of antineoplastic chemotherapy; Z92.3 Personal history of irradiation
CPT/HCPCS: 36415; 85025; 99214

== ENCOUNTER 2022-02-17 08:21 | Outpatient (CLI) | payer MEDICARE, SELFPAY ==
--- NOTE | 2022-02-17 09:00 | FL_ITS ---
WS: [id number] Modified barium swallow, 02/17/2022 Clinical Data: Other dysphagia Comparison: None. Fluoroscopy time: 2min 50.0sec # of spot films: Findings: The patient had a laryngectomy. Because he was edentulous, he had difficulty in chewing. With his ora l propulsion there is noted premature spillage into the piriformis. There is a trace of penetration. The pharynx showed minimal vallecular residue and slight aspiration. FL/FL barium swallow modifd [id number] Impression: 1. Poor oral propulsion because he was edentulous. 2. Minimal premature spillage into the piriformis with minimal penetration. 3. Slight aspiration which was improved with a chin tuck.
== END 2022-02-17 08:22 | disposition home or self-care (01) ==
LOC: RAD 08:21
PROVIDERS: Visit Provider Specialist
DX: R13.19 Other dysphagia (principal)
CPT/HCPCS: 74230; 92611

== ENCOUNTER → 2022-06-14 09:01 | Outpatient (BNVA) | payer MEDICARE, SELFPAY | PROVIDERS: PCP Nurse Practitioner Family; Visit Provider Internal Medicine Critical Care Medicine | DX: J43.2 Centrilobular emphysema (principal); Z85.21 Personal history of malignant neoplasm of larynx; Z86.711 Personal history of pulmonary embolism; Z93.0 Tracheostomy status; Z93.1 Gastrostomy status; Z79.01 Long term (current) use of anticoagulants; Z87.891 Personal history of nicotine dependence; Z92.21 Personal history of antineoplastic chemotherapy; Z92.3 Personal history of irradiation | CPT/HCPCS: 99203; 99204 ==

== ENCOUNTER → 2022-07-01 14:50 | Outpatient (BNVA) | payer MEDICARE, SELFPAY | PROVIDERS: PCP Nurse Practitioner Family; Visit Provider Surgery | DX: R13.10 Dysphagia, unspecified (principal); Z85.21 Personal history of malignant neoplasm of larynx | CPT/HCPCS: 99213 ==

== ENCOUNTER 2022-08-30 10:23 | Outpatient (CLI) | payer MEDICARE, SELFPAY ==
--- NOTE | 2022-08-30 11:30 | FL_ITS ---
WS: [id number] Exam: FL barium swallow modifd [id number] Date/Time of Exam: 08/30/2022 11:15 AM Reason For Exam: Fluoroscopy time: 3min 1.002919mqj minutes # of spot films: Exam was performed in conjunction with the speech therapy service. The patient has a tracheostomy tube. Swallowing function at the level of the oropharynx was normal. The patient tolerated thin liquid, pud ding consistency and solid barium mixture foodstuffs without aspiration or penetration. The patient i ngested the barium tablet without complication. FL/FL barium swallow modifd [id number] IMPRESSION: 1. No aspiration or penetration identified. A separate report of recommendations and findings will follow from the speech t herapy service.
== END 2022-08-30 10:24 | disposition home or self-care (01) ==
LOC: RAD 10:25
PROVIDERS: PCP Nurse Practitioner Family; Visit Provider Surgery
DX: R13.10 Dysphagia, unspecified (principal); Z93.0 Tracheostomy status
CPT/HCPCS: 74230; 92611

== ENCOUNTER 2022-09-16 09:27 | Day surgery (SDC) | payer MEDICARE, SELFPAY ==
[2022-09-14 15:34] VITALS: BMI 25.0
[2022-09-16 09:57] VITALS: BP 181/83; PULSE 64; RESP 18; TEMP 36.6; O2SAT 98
[2022-09-16] MEDS: sodium chloride 0.9% 1,000 ML 30 ML IV (10:07)
--- NOTE | 2022-09-16 10:17 | ANES.PREANE2 ---
Pre-Anesthetic Assessment Height/Weight: Height 1.6 m Weight 63.957 kg Temp Pulse Resp BP Pulse Ox O2 Del Method 97.9 F 64 18 181/83 98 09/16/22 09:57 09/16/22 09:57 09/16/22 09:57 09/16/22 09:57 09/16/22 09:57 09/16/22 09:57 Preop Diagnosis: Laryngeal cancer Operation Date: 09/16/22 11:05 Proposed Procedures p no option for peg tube removal CPT. MAC cpt code 56187,Z93.1(Not Applicable) - Vinay Winter MD Familial anesthetic complications: None Was Beta Fawn taken within 24 hours: N/A Was Clonidine taken within 24 hours: N/A Last intake: Intake Last Liquid Date 09/15/22 Last Solid Date 09/15/22 Last Solid Time 16:00 Social No alcohol and No tobacco Exam alert, oriented x 3, clear to auscultation bilaterally and regular rate & rhythm Airway Submandibular: within normal limits Cervical ROM: within normal limits Mallampati: Class II Dentition: false History/ROS No significant history except as noted and No significant complaints Pulmonary None reported Laryngeal cancer, has trach in place CV/HEM Deep Vein Thrombosis and Hypertension None reported Hepatic None reported GI None reported PEG tube in place, here to have it removed Metabolic None reported Musc/skel Lower Back Pain and Osteoarthritis/DJD Neuropsych None reported Anesthetic Plan ASA status: 3 Anesthesia: Anesthesia Evaluation, General and MAC Risk of > 500 ml blood loss (7ml/kg in children): No Medications/Allergies Home Medications Medication Instructions Recorded Confirmed Last Taken Type acetaminophen 325 mg tablet 325 mg PO QID PRN Pain 06/14/22 09/16/22 09/16/22 History (Tylenol) ferrous sulfate 325 mg (65 mg 325 mg PO DAILY 06/14/22 09/16/22 09/15/22 History iron) tablet (FeroSul) rivaroxaban 10 mg tablet (Xarelto) 10 mg PO DAILY #90 tabs 09/02/22 09/14/22 09/13/22 Rx Allergies Allergy/AdvReac Type Severity Reaction Status Date / Time No Known Allergies Allergy Verified 09/16/22 10:22 Current Medications Generic Name Dose Route Start Last Admin Trade Name Freq PRN Reason Stop Dose Admin Sodium Chloride 1,000 mls @ 30 mls/hr 09/16/22 09:45 09/16/22 10:07 Sodium Chloride 0.9% IV 09/17/22 09:44 30 mls/hr .Q24H MANDIE Administration PFSH Anesthesia Medical History Laryngitis Stomach ulcer Surgical History H/O removal of cyst Family History Other Family history non-contributory Social History Smoking and tobacco status: former smoker Quit status (tobacco): has quit using tobacco Year quit tobacco: 2020 Former quit date comment: 1 ppd X 50 years Data Anesthesia Cardiac Studies: No Data to Display
--- NOTE | 2022-09-16 10:20 | P.HP_ITS ---
Same Day Surgery H&P Indication for Procedure/HPI DATE OF PROCEDURE: September 16, 2022 CHIEF COMPLAINT/INDICATIONFOR SURGICAL PROCEDURE: I need my feeding tube out PREOP DIAGNOSIS: Laryngeal cancer PLANNED PROCEDURE: Operation Date: 09/16/22 11:05 Proposed Procedures p no option for peg tube removal CPT. MAC cpt code 11418,Z93.1(Not Applicable) - Vinay Winter MD 07/01/2022 This is a pleasant 67 years old gentleman?status post PEG tube placement for history of laryngeal cancer, procedure was done 06/02/2021.? Patient had a modified barium swallow back in February 2022 which did show 1. Poor oral propulsion because he was edentulous. 2. Minimal premature spillage into the piriformis with minimal penetration. 3. Slight aspiration which was improved with a chin tuck. Recommendations at that time per speech pathology to alternate liquids and solids at 90 degrees hip flexion and limited to 1 teaspoon.? And chin tuck.? He reports that he has not been using his PEG tube at all. Interim history 09/16/2022 Patient comes today for PEG tube removal and modified barium swallow was done per speech pathology and did show The patient has a tracheostomy tube. Swallowing function at the level of the oropharynx was normal. The patient tolerated thin liquid, pudding consistency and solid barium mixture foodstuffs without aspiration or penetration. The patient ingested the barium tablet without complication. FL/MA barium swallow modifd [id number] IMPRESSION: 1. No aspiration or penetration identified. Patient overall is doing well ROS All systems have been reviewed negative except as for the above or per problem list. Medications/Allergies* Home Medications Medication Instructions Recorded Confirmed Type acetaminophen 325 mg tablet 325 mg PO QID PRN Pain 06/14/22 09/16/22 History (Tylenol) ferrous sulfate 325 mg (65 mg 325 mg PO DAILY 06/14/22 09/16/22 History iron) tablet (FeroSul) Allergies/Adverse Reactions 3 Allergy/AdvReac Type Severity Reaction Status Date / Time No Known Allergies Allergy Verified 09/16/22 10:22 Current Medications: Generic Name Dose Route Start Last Admin Trade Name Freq PRN Reason Stop Dose Admin Sodium Chloride 1,000 mls @ 30 mls/hr 09/16/22 09:45 11/10/22 10:07 Sodium Chloride 0.9% IV 09/17/22 09:44 30 mls/hr .Q24H MANDIE Administration Pertinent History/Comorbid Conditions* Medical History (Updated 06/14/22 @ 09:52 by Connie Carney MD) Laryngitis Stomach ulcer Surgical History (Updated 05/07/21 @ 00:01 by ) H/O removal of cyst Family History (Updated 04/30/21 @ 04:32 by Nel Cornejo MD) Family history non-contributory Social History Smoking and tobacco status: former smoker Quit status (tobacco): has quit using tobacco Year quit tobacco: 2020 Former quit date comment: 1 ppd X 50 years Pertinent Exam Findings alert, oriented x 3, regular rate & rhythm and procedure specific exam findings (Abdominal exam nontender nondistended soft, PEG tube in place.) Recommendations Surgery/Procedure today (Removal of PEG tube under MAC) Coding Level of Care 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
--- NOTE | 2022-09-16 12:06 | PM.OUTPTPROC ---
Outpatient Procedures Foreign Body Removal Time out performed: yes Site: other (Abdomen) Description of foreign body: other (PEG tube) Sedation/Analgesia: propofol (Michelle Diamond) Technique: manual removal and other (Timeout was done verifying patient's name and medical record. All were in agreement. Manual removal of the PEG tube was done without complications and dry dressing was applied.) Confirmed by: direct visualization Complications: none Post-procedure exam: awake, alert, normal BP, normal HR and normal O2 sat
[2022-09-16 12:07] VITALS: BP 152/74; PULSE 60; RESP 18; TEMP 36.1; O2SAT 97
[2022-09-16 12:21] VITALS: BP 150/75; PULSE 64; RESP 18; O2SAT 98
--- NOTE | 2022-09-16 15:22 | ANE.PACU2 ---
Inpatient post-anesthesia follow up: Airway intact: Yes Vital signs: Temperature 97.0 F Pulse Rate 64 Respiratory Rate 18 Blood Pressure 150/75 Pulse Oximetry 98 Oxygen Delivery Me thod Room Air Oxygen Flow Rate Fraction of Inspir ed Oxygen Hydration adequate: Yes Nausea and vomiting: No Pain level: 1 Mental status: Baseline
== END 2022-09-16 12:31 | disposition home or self-care (01) ==
PROVIDERS: PCP Nurse Practitioner Family; Visit Provider Surgery
PROC: (CPT 43999; principal; 2022-09-16 11:00)
DX: Z93.1 Gastrostomy status (principal); Z87.891 Personal history of nicotine dependence; Z85.21 Personal history of malignant neoplasm of larynx; I10 Essential (primary) hypertension
CPT/HCPCS: 43762; J2704; J7030

== ENCOUNTER → 2022-09-23 15:35 | Outpatient (BNVA) | payer MEDICARE, SELFPAY | PROVIDERS: PCP Nurse Practitioner Family; Visit Provider Surgery | DX: Z09 Encounter for follow-up examination after completed treatment for conditions other than malignant neoplasm (principal) | CPT/HCPCS: 99212 ==

== ENCOUNTER → 2023-07-13 14:33 | Outpatient (BNVA) | payer MEDICARE, SELFPAY | PROVIDERS: PCP Nurse Practitioner Family; Visit Provider Nurse Practitioner Family | DX: Z86.711 Personal history of pulmonary embolism (principal); D64.9 Anemia, unspecified; Z98.890 Other specified postprocedural states | CPT/HCPCS: 85025 ==

== ENCOUNTER → 2024-04-30 08:24 | Outpatient (BNVA) | payer MEDICARE, SELFPAY | PROVIDERS: PCP Nurse Practitioner Family; Visit Provider Nurse Practitioner Family | DX: Z79.01 Long term (current) use of anticoagulants (principal); Z79.899 Other long term (current) drug therapy | CPT/HCPCS: 80053; 85025 ==

== ENCOUNTER → 2024-10-19 10:48 | Outpatient (BNVA) | payer MEDICARE, SELFPAY | PROVIDERS: PCP Nurse Practitioner Family; Visit Provider Nurse Practitioner Family | DX: I10 Essential (primary) hypertension (principal); R53.83 Other fatigue | CPT/HCPCS: 80053; 80061; 85025 ==

== ENCOUNTER → 2024-12-28 09:19 | Outpatient (BNVA) | payer MEDICARE, SELFPAY | PROVIDERS: PCP Nurse Practitioner Family; Visit Provider Nurse Practitioner Family | DX: I10 Essential (primary) hypertension (principal); R53.83 Other fatigue | CPT/HCPCS: 80053; 80061; 85025 ==

== ENCOUNTER → 2025-10-10 09:26 | Outpatient (BNVA) | payer MEDICARE, SELFPAY | PROVIDERS: PCP Nurse Practitioner Family; Visit Provider Nurse Practitioner Family | DX: R53.83 Other fatigue (principal); I10 Essential (primary) hypertension | CPT/HCPCS: 80053; 80061; 85025 ==

== ENCOUNTER → 2025-10-18 10:40 | Outpatient (BNVA) | payer MEDICARE, SELFPAY | PROVIDERS: PCP Nurse Practitioner Family; Visit Provider Thoracic Surgery (Cardiothoracic Vascular Surgery) | DX: I96 Gangrene, not elsewhere classified (principal); L97.812 Non-pressure chronic ulcer of other part of right lower leg with fat layer exposed; B88.8 Other specified infestations | CPT/HCPCS: 11042; 99213; A6252 ==

== ENCOUNTER → 2025-10-25 10:56 | Outpatient (BNVA) | payer MEDICARE, SELFPAY | PROVIDERS: PCP Nurse Practitioner Family; Visit Provider Thoracic Surgery (Cardiothoracic Vascular Surgery) | DX: I96 Gangrene, not elsewhere classified (principal); L97.811 Non-pressure chronic ulcer of other part of right lower leg limited to breakdown of skin | CPT/HCPCS: 99212; A6252 ==

== ENCOUNTER → 2025-11-04 12:55 | Outpatient (BNVA) | payer MEDICARE, SELFPAY | PROVIDERS: PCP Nurse Practitioner Family; Visit Provider Thoracic Surgery (Cardiothoracic Vascular Surgery) | DX: I96 Gangrene, not elsewhere classified (principal); L97.811 Non-pressure chronic ulcer of other part of right lower leg limited to breakdown of skin | CPT/HCPCS: 97597 ==